=== PATIENT | female | born 1940 | race Caucasian/White ===

== ENCOUNTER → 2018-06-01 13:37 | Outpatient (REF) | payer MEDICARE, SELFPAY ==
[2018-06-01 22:58] LABS: ALT 20 U/L (12-78); AST 19 U/L (15-37); Anion Gap 7.4 mmol/L (3-11); BUN 12 mg/dL (7-18); CO2 27.6 mmol/L (21.0-32.0); CREATININE 0.71 mg/dL (0.55-1.02); Calcium 9.3 mg/dL (8.5-10.1); Chloride 105 mmol/L (98-107); Glucose 85 mg/dL (70-100); Potassium 4.3 mmol/L (3.5-5.1); Sodium 140 mmol/L (136-145); TSH (W/Ref FT4) 1.37 uIU/mL (0.358-3.74); Vitamin B12 262 pg/mL (193-986)
[2018-06-01 23:30] LABS: Cholesterol 269 mg/dL (50-200); HDL Cholesterol 52 mg/dL (40-60); LDL CHOLESTEROL 195 mg/dL (<100); Triglyceride 132 mg/dL (30-150)
== END ==
LOC: NCHCN 13:37
PROVIDERS: PCP Family Medicine; Visit Provider Nurse Practitioner Family
DX: R20.2 Paresthesia of skin (principal); E78.5 Hyperlipidemia, unspecified; R53.83 Other fatigue; K21.9 Gastro-esophageal reflux disease without esophagitis; G47.62 Sleep related leg cramps; M79.1 Myalgia; F43.21 Adjustment disorder with depressed mood; E04.2 Nontoxic multinodular goiter; M62.838 Other muscle spasm
CPT/HCPCS: 80048; 80061; 83721; 82607; 83735; 84443; 84450; 84460

== ENCOUNTER 2018-06-12 01:15 | Outpatient (CLI) | payer MEDICARE, SELFPAY ==
--- NOTE | 2018-06-12 11:02 | DI.US_ITS ---
SYMPTOMS/DIAGNOSIS: MULTINODULAR GOITER, E04.2 THYROID ULTRASOUND: Comparison is made with exams from 2010 and 2016. There has overall been a mild interval increase in size of both lobes of the thyroid when compared with 2010. The overall appearance is unchanged, with numerous isoechoic as well as hypoechoic nodules. A calcification is seen in the mid left lobe. IMPRESSION: Stable appearance of multinodular thyroid.
== END 2018-06-12 01:35 ==
PROVIDERS: PCP Nurse Practitioner Family; Visit Provider Nurse Practitioner Family
DX: E04.2 Nontoxic multinodular goiter (principal)
CPT/HCPCS: 76536

== ENCOUNTER 2018-06-17 02:45 | Outpatient (CLI) | payer MEDICARE, SELFPAY ==
--- NOTE | 2018-06-17 10:58 | DI.MAMMO_ITS ---
SYMPTOMS/DIAGNOSIS: SCREENING, Z12.31 Mammograms were interpreted according to the usual protocol including computer analysis with CAD system, tomosynthesis and C view imaging. Comparison is with the prior examinations. No masses or microcalcifications are seen. There is nothing to suggest malignancy. IMPRESSION: Negative mammogram. Routine screening is recommended. Category 1 , breast density B. MQSA ASSESSMENT OF FINDINGS: Negative. Category 1. Patient will receive a letter notifying them of these results. BI-RADS category B. There are scattered areas of fibroglandular density.
== END 2018-06-17 03:05 ==
PROVIDERS: PCP Nurse Practitioner Family; Visit Provider Nurse Practitioner Family
DX: Z12.31 Encounter for screening mammogram for malignant neoplasm of breast (principal)
CPT/HCPCS: 77063; 77067

== ENCOUNTER 2018-07-22 10:00 | Outpatient (REF) | payer MEDICARE, SELFPAY ==
[2018-07-22 13:34] LABS: ALT 20 U/L (12-78); AST 14 U/L (15-37); CREATININE 0.69 mg/dL (0.55-1.02); Cholesterol 239 mg/dL (50-200); HDL Cholesterol 52 mg/dL (40-60); LDL CHOLESTEROL 166 mg/dL (<100); Potassium 4.2 mmol/L (3.5-5.1); Triglyceride 240 mg/dL (30-150)
== END 2018-07-22 10:20 ==
LOC: NCHCN 10:00
PROVIDERS: PCP Nurse Practitioner Family; Visit Provider Nurse Practitioner Family
DX: E78.5 Hyperlipidemia, unspecified (principal); R76.0 Raised antibody titer; R20.2 Paresthesia of skin; R53.83 Other fatigue; G47.62 Sleep related leg cramps
CPT/HCPCS: 80061; 83721; 82565; 84132; 84450; 84460

== ENCOUNTER 2019-03-30 13:00 | Outpatient (REF) | payer MEDICARE, SELFPAY ==
[2019-03-30 21:19] LABS: Calculated LDL 225; Cholesterol 321 mg/dL (50-200); HDL Cholesterol 44 mg/dL (40-60); Triglyceride 261 mg/dL (30-150)
== END 2019-03-30 13:20 ==
LOC: NCHCN 13:00
PROVIDERS: PCP Nurse Practitioner Family; Visit Provider Nurse Practitioner Family
DX: E78.5 Hyperlipidemia, unspecified (principal); R53.83 Other fatigue; F41.8 Other specified anxiety disorders; E55.9 Vitamin D deficiency, unspecified; E04.2 Nontoxic multinodular goiter; K21.9 Gastro-esophageal reflux disease without esophagitis
CPT/HCPCS: 80061; 83721

== ENCOUNTER 2019-05-04 10:55 | Outpatient (REF) | payer MEDICARE, SELFPAY ==
[2019-05-04 23:10] LABS: BUN 8 mg/dL (7-18); CREATININE 0.64 mg/dL (0.55-1.02); Calcium 9.2 mg/dL (8.5-10.1); Glucose 92 mg/dL (70-100)
[2019-05-04 23:11] LABS: ALT 23 U/L (12-78); AST 18 U/L (15-37); Albumin 3.6 g/dL (3.4-5.0); Alkaline Phosphatase 89 U/L (46-116); Anion Gap 8.1 mmol/L (3-11); Bilirubin, Total 0.3 mg/dL (0.2-1.0); CO2 25.9 mmol/L (21.0-32.0); Chloride 107 mmol/L (98-107); Magnesium 1.9 mg/dL (1.8-2.4); Potassium 4.3 mmol/L (3.5-5.1); Sodium 141 mmol/L (136-145); TSH (W/Ref FT4) 2.83 uIU/mL (0.36-3.74); Total Protein 6.6 g/dL (6.4-8.2); Vitamin B12 186 pg/mL (193-986)
== END 2019-05-04 11:15 ==
LOC: NCHCN 10:55
PROVIDERS: PCP Nurse Practitioner Family; Visit Provider Nurse Practitioner Family
DX: E78.5 Hyperlipidemia, unspecified (principal); R53.83 Other fatigue; E04.2 Nontoxic multinodular goiter; F41.8 Other specified anxiety disorders; R07.89 Other chest pain; K21.9 Gastro-esophageal reflux disease without esophagitis; M25.561 Pain in right knee; M25.562 Pain in left knee; M62.838 Other muscle spasm
CPT/HCPCS: 80053; 82607; 83735; 84443

== ENCOUNTER 2019-06-02 01:14 | Outpatient (CLI) | payer MEDICARE, SELFPAY ==
--- NOTE | 2019-06-02 13:28 | DI.RAD_ITS ---
SYMPTOMS/DIAGNOSIS: RT HIP PAIN, M25.551, LUMBAR BACK PAIN, M54.5 RIGHT HIP AND PELVIS: Three views. No acute fracture or dislocation is seen. There is mild joint space narrowing and subchondral sclerosis seen in the right hip. There are degenerative changes present in the lower lumbar spine. There also appears to be a left convex scoliotic curvature of the lumbar spine. Degenerative changes are seen at the sacroiliac joints. The symphysis pubis is intact. No suspicious lytic or sclerotic lesions are seen. IMPRESSION: 1. Mild degenerative changes in the right hip. 2. Degenerative changes seen in the lower lumbar spine. LUMBAR SPINE: AP, lateral and bilateral oblique views. There are five lumbar type vertebral bodies. There is a mild left convex scoliotic curvature of the spine. No spondylolysis or spondylolisthesis is seen. There is mild disc space narrowing at L 3 - 4 and L 5 - S 1. There is a vacuum disc at L 5 - S 1. There are osteophytes at all levels of the lumbar spine. Degenerative changes are seen at the facet joints, particularly from L 3 - 4 through L 5 - S 1. No acute fracture or subluxation is seen. The bones are osteopenic. IMPRESSION: Moderate degenerative changes seen in the lumbar spine.
== END 2019-06-02 01:34 ==
PROVIDERS: PCP Nurse Practitioner Family; Visit Provider Specialist/Technologist Athletic Trainer
DX: M25.551 Pain in right hip (principal); M54.5 Low back pain; M16.11 Unilateral primary osteoarthritis, right hip; M51.37 Other intervertebral disc degeneration, lumbosacral region; M48.17 Ankylosing hyperostosis [Forestier], lumbosacral region
CPT/HCPCS: 72110; 73502

== ENCOUNTER → 2019-07-05 14:32 | Outpatient (BNVA) | payer MEDICARE, SELFPAY | PROVIDERS: PCP Nurse Practitioner Family; Referring Provider Nurse Practitioner Family; Visit Provider Student in an Organized Health Care Education/Training Program | DX: M16.11 Unilateral primary osteoarthritis, right hip (principal) | CPT/HCPCS: 99214 ==

== ENCOUNTER 2019-07-08 03:25 | Outpatient (CLI) | payer MEDICARE, SELFPAY ==
[2019-07-08] MEDS: methylPREDNISolone ACETATE 80 MG/ML VIAL IM (15:47)
[2019-07-08] MEDS: Omnipaque 300 MG/ML 10 ML BTL IJ (15:47)
[2019-07-08] MEDS: Bupivacaine 0.5% Pres-Free 10 ML VIAL 8 ML IJ (15:48)
--- NOTE | 2019-07-08 16:00 | DI.RAD_ITS ---
EXAM: RF JOINT INJECTION FLUORO GUID CLINICAL HISTORY: HIP PAIN,OA RT HIP,M16.11. TECHNIQUE: 2D and realtime digital imaging was performed. CONTRAST MATERIAL: Oral barium Oral water soluble contrast was administered. COMPARISON: No exams were available for comparison FINDINGS: Fluoroscopy was utilized by Dr. Laina dutton during right hip injection. Hard copy shows intra-carmina cular right hip injection. IMPRESSION:
--- NOTE | 2019-07-08 21:09 | W.PROCNOTE ---
Date of service: 07/08/19 Time of Service: 18:10 Procedure Note Date of procedure: 07/08/19 Procedure: Right Hip Injection with Fluoroscopic Guidance Surgeon/Proceduralist/Physician: Mikey Fontenot Procedure Diagnosis: Right Hip Osteoarthritis Procedure Indications: Ginger has had persistent pain of the RIGHT hip and groin. Noninvasive measures have been tried. To serve as both diagnostic and therapeutic, an injection under fluoroscopy was recommended. I had discussed the risks of the procedure and the patient elected to proceed. Procedure Description: Ginger was greeted in the flouroscopy room. The correct side was identified and the consent was reviewed with the patient and signed. The patient was then placed in the supine position on the fluoroscopy table. The RIGHT hip was then prepped with Chloraprep. The anterolateral injection starting point was identiifed by bony landmarks and fluoroscopy. The skin and soft tissue in the tract of the injection was anesthetized with 1% Lidocaine. A spinal needle was then inserted deep into the hip joint at the level of the lateral femoral neck under fluoroscopic guidance. A small amount of Omnipaque solution was injected to confirm intraarticular placement. Once confirmed, the hip was injected with 6cc of 0.5% Bupivicaine and 80mg of Depo-Medrol. A bandaid was placed on the injection site. The patient tolerated the procedure well and noted improvement in pre-injection pain.
== END 2019-07-08 03:45 ==
PROVIDERS: PCP Nurse Practitioner Family; Visit Provider Student in an Organized Health Care Education/Training Program
DX: M25.551 Pain in right hip (principal); M16.11 Unilateral primary osteoarthritis, right hip
CPT/HCPCS: 20610; 77002; J1040

== ENCOUNTER → 2019-07-29 13:14 | Outpatient (BNVA) | payer MEDICARE, SELFPAY | PROVIDERS: PCP Nurse Practitioner Family; Referring Provider Nurse Practitioner Family; Visit Provider Student in an Organized Health Care Education/Training Program | DX: M16.11 Unilateral primary osteoarthritis, right hip (principal); M54.5 Low back pain; Z98.890 Other specified postprocedural states | CPT/HCPCS: 99213 ==

== ENCOUNTER → 2019-10-28 11:50 | Outpatient (BNVA) | payer MEDICARE, SELFPAY | PROVIDERS: PCP Nurse Practitioner Family; Referring Provider Nurse Practitioner Family; Visit Provider Student in an Organized Health Care Education/Training Program | DX: M17.12 Unilateral primary osteoarthritis, left knee (principal); M17.11 Unilateral primary osteoarthritis, right knee | CPT/HCPCS: 20610; 99213; J1040 ==

== ENCOUNTER 2019-12-09 11:10 | Outpatient (CLI) | payer MEDICARE, SELFPAY ==
--- NOTE | 2019-12-09 11:00 | DI.RAD_ITS ---
EXAM: XR STANDING ALIGNMENT CLINICAL HISTORY: preoperative planning. TECHNIQUE: 2D digital imaging was performed. COMPARISON: No exams were available for comparison FINDINGS: BONES: No acute fracture is present. No bony destructive lesion is seen. There are moderately severe degenerative changes seen in the lower lumbar spine. The right lower extremity measures 88.4 cm. Th e left lower extremity measures 88.2 cm. JOINTS: Moderately severe degenerative changes are seen in the knees bilaterally. There is joint spa ce narrowing and periarticular spurring in both knees. SOFT TISSUE: Normal. IMPRESSION: Osteoarthritis of the knees bilaterally. DATA REPOSITORY: RADIATION DOSE DELIVERED:
--- NOTE | 2019-12-09 11:00 | DI.RAD_ITS ---
EXAM: XR SHOULDER LT COMPLETE 2+V CLINICAL HISTORY: left shoulder pain. TECHNIQUE: 2D digital imaging was performed. COMPARISON: No exams were available for comparison FINDINGS: BONES: No acute fracture is present. No bony destructive lesion is seen. JOINTS: No dislocation present. There is hypertrophic spurring seen at the glenohumeral joint particu larly involving the humeral head. There are mild hypertrophic changes seen at the acromioclavicular joint. There is joint space narrowing present at the glenohumeral joint. SOFT TISSUE: Normal. IMPRESSION: Osteoarthritis of the left shoulder. DATA REPOSITORY: RADIATION DOSE DELIVERED:
== END 2019-12-09 11:30 ==
PROVIDERS: PCP Nurse Practitioner Family; Referring Provider Nurse Practitioner Family; Visit Provider Student in an Organized Health Care Education/Training Program
DX: M25.512 Pain in left shoulder (principal); M19.012 Primary osteoarthritis, left shoulder; M17.0 Bilateral primary osteoarthritis of knee; M17.12 Unilateral primary osteoarthritis, left knee; M17.11 Unilateral primary osteoarthritis, right knee
CPT/HCPCS: 99213; 73030; 77073

== ENCOUNTER 2020-02-25 03:22 | Outpatient (CLI) | payer MEDICARE, SELFPAY ==
[2020-02-25 11:32] LABS: HCT 39.8 % (36.0-46.0); HGB 13.1 g/dL (12.0-15.5); Mean Corp. HGB Concentration 32.9 g/dL (32.0-36.0); Mean Corpuscular Volume 91.1 fL (80-95); Mean Platelet Volume 8.5 fL (8.0-11.0); Platelet Count 250 x1000/uL (130-400); RBC 4.37 m/cumm (4.00-5.20); RBC Distribution Width 12.8 % (11.7-14.6); White Blood Cell Count 4.32 k/cumm (4.4-10.8)
[2020-02-25 13:08] LABS: Anion Gap 9.8 mmol/L (3-11); BUN 14 mg/dL (7-18); CO2 25.2 mmol/L (21.0-32.0); Calcium 9.3 mg/dL (8.5-10.1); Chloride 104 mmol/L (98-107); Glucose 92 mg/dL (74-106); Sodium 139 mmol/L (136-145)
== END 2020-02-25 03:42 ==
PROVIDERS: PCP Nurse Practitioner Family; Visit Provider Student in an Organized Health Care Education/Training Program
DX: M25.561 Pain in right knee (principal); M17.11 Unilateral primary osteoarthritis, right knee; Z01.818 Encounter for other preprocedural examination; Z01.812 Encounter for preprocedural laboratory examination; M17.12 Unilateral primary osteoarthritis, left knee
CPT/HCPCS: 36415; 80048; 85027

== ENCOUNTER 2020-02-28 09:12 | Outpatient (CLI) | payer MEDICARE, SELFPAY ==
[2020-02-29 03:30] LABS: COVID-19 RT-PCR UVMMC Result Negative (Negative)
== END 2020-02-28 09:32 ==
PROVIDERS: PCP Nurse Practitioner Family; Visit Provider Student in an Organized Health Care Education/Training Program
DX: Z11.59 Encounter for screening for other viral diseases (principal)
CPT/HCPCS: U0003

== ENCOUNTER → 2020-03-01 08:18 | Outpatient (BNVA) | payer MEDICARE, SELFPAY | PROVIDERS: PCP Nurse Practitioner Family; Referring Provider Nurse Practitioner Family; Visit Provider Student in an Organized Health Care Education/Training Program | DX: R69 Illness, unspecified (principal) ==

== ENCOUNTER 2020-03-01 09:23 | Observation (INO) | payer MEDICARE, SELFPAY ==
[2020-03-01] VITALS (7 sets, daily range): BP systolic 96–137; BP diastolic 59–80; PULSE 51–82; RESP 16–24; TEMP 35.8–36.1; O2SAT 94–98
[2020-03-01] MEDS: Acetaminophen 500 MG TAB 1000 MG PO ×2 (10:03→15:44)
[2020-03-01] MEDS: Gabapentin 300 MG CAP PO (10:04)
[2020-03-01] MEDS: Celecoxib 200 MG CAP 400 MG PO (10:04)
[2020-03-01] MEDS: Lactated Ringers 1,000 ML 80 ML IV (10:40)
[2020-03-01] MEDS: Bupivacaine 0.25% Pres-Free 30 ML VIAL ×2 (11:10→12:23)
[2020-03-01] MEDS: ceFAZolin 2 GM/50 ML BAG IVPB (11:32)
[2020-03-01] MEDS: Ketorolac 30 MG/ML VIAL (12:23)
[2020-03-01] MEDS: Normal Saline 20 ML VIAL (12:24)
--- NOTE | 2020-03-01 14:39 | IN_ITS ---
Date of service: 03/01/20 Time of Service: 14:39 PT Notes Visit Reasons: (L) KNEE DJD Physical Therapy Inpatient Initial Evaluation Date: 03/01/2020 Referring Doctor: Mikey Fontenot MD PT Orders: PT CONSULT: Status post Ortho surgery. Status post left TKA. Precautions: Fall. Standard. WBAT on L LE. Patient Profile/Admitting Diagnosis: Ginger is a 79-year-old female with primary unilateral osteoarthritis of the left knee and is status post total knee arthroplasty on postoperative day 0. PMHX: Medical History Anxiety (Chronic) Arthritis of left glenohumeral joint (Acute) Back pain Secondary to spinal stenosis and arthritis. [place]-Walker grade 3 cystocele Onset 05/2017. Extends beyond the introitus with Valsalva. 07/04/2017. short stemmed Gellhorn 2 3/4 (70mm) pessary. 07/10/2017 #4 donut pessary Chest discomfort (Acute) Cystocele with rectocele (Acute) Depression Onset after daughter's at age 50. Duodenal ulcer (Acute) Elevated antinuclear antibody (SERGEY) level (Acute) Esophageal spasm Rx with amlodipine. Fatigue (Acute) GERD (gastroesophageal reflux disease) (Chronic) Grief at loss of child (Acute) Hip pain, right (Acute) Hyperlipidemia (Acute) Knee pain, bilateral (Acute) Lactose intolerance (Acute) Leg cramps (Acute) Macular degeneration (Acute) Multinodular goiter (Acute) Myalgia (Acute) Neck muscle spasm (Acute) Primary osteoarthritis of left knee (Chronic) Most recent injection: 10/28/2019 Primary osteoarthritis of right knee (Chronic) Most recent injection: 10/28/2019 Vitamin B12 deficiency (Acute) Vitamin D deficiency (Acute) Surgical History Colonoscopy - IV Sedation EGD - IV Sedation Extraction of cataract Ganglion Cyst, left wrist Left Breast Cyst Removal Social History/Home Situation: Patient lives with in a private home with 2 steps to enter. She is independent with all aspects of ADLs without the need for an assistive ambulatory device nor the use of an adaptive equipment prior to surgery. Daughter who lives in [place] will be helping the patient and her during her recovery as needed. Equipment Owned/DME: None. Subjective: Patient reports an ache on the knee area at rest which seat she said increased with ambulation activity. She denies lightheadedness, chest pain, headache, and dizziness throughout PT session. Objective: General Observation: Patient seen resting in bed. IV in the L UE. TEDS on R leg. Mental Status: Alert and oriented x4 Pain: 1/10 on the knee area ROM: Right Upper Extremity: Shoulder Flexion WFL. Shoulder abduction WFL. Elbow flexion WFL. Wrist flexion WFL. Opening and closing of hand WFL. Left Upper Extremity: Shoulder Flexion WFL. Shoulder abduction WFL. Elbow flexion WFL. Wrist flexion WFL. Opening and closing of hand WFL. Right Lower Extremity: Hip flexion WFL. Hip abduction WFL. Knee flexion WFL. Ankle dorsiflexion WFL. Ankle plantarflexion WFL. Left Lower Extremity: Hip flexion WFL. Hip abduction WFL. Knee flexion -5 degrees to 110 degrees. Knee extension -5 degrees. Ankle dorsiflexion WFL. Ankle plantarflexion WFL. Strength: Right Upper Extremity: Shoulder flexors 5/5. Shoulder abductors 5/5. Elbow flexors 5/5. Elbow extensors 5/5. Universal Winding Machine Operator strong. Left Upper Extremity: Shoulder flexors 5/5. Shoulder abductors 5/5. Elbow flexors 5/5. Elbow extensors 5/5. Universal Winding Machine Operator strong. Right Lower Extremity: Hip flexors 5/5. Hip abductors 5/5. Knee flexors 5/5. Knee extensors 5/5. Ankle dorsiflexors 5/5. Ankle plantarflexors 5/5. Left Lower Extremity:Hip flexors 5/5. Hip abductors 5/5. Knee flexors 3-5. Knee extensors 3-/5. Ankle dorsiflexors 5/5. Ankle plantarflexors 5/5. Sensation: Intact as to pain and pressure on bilateral lower extremities. Re sidual numbness on bilateral gluteal areas. Bed Mobility/Transfers: Rolling modified independent Supine to sit modified independent with HOB flat using both hands for support Sit to supine modified independent with HOB flat using both hands for support Sit to stand contact-guard assist requiring front wheeled walker with minimal verbal cueing for hand placement Stand to sit contact-guard assist with minimal verbal cueing for hand placement Bed to chair contact-guard assist requiring front wheeled walker with minimal verbal cueing for hand placement Chair to bed contact-guard assist requiring front wheeled walker with minimal verbal cueing for hand placement Gait: Patient tolerated level surface ambulation of 150 feet x 2 using front wheeled walker with contact-guard assist and IV pole management of PT. Step to gait pattern. Patient reports increased achiness on the left knee. No LOB. Balance: Static Sitting: Normal Dynamic Sitting: Normal Static Standing: Fair Dynamic Standing: Fair Special Tests: Mobility Limitations Standardized Measure [facility] AM-PAC 6 clicks Basic Mobility Inpatient Short Form: Raw Score: 23 CMS Score: 11% deficit Informed Consent/Education: Patient instructed in purpose of PT consult and plan of care. Assessment: Patient demonstrates need for an assistive ambulatory device for all mobility ADL performance, at risk for falls, unsteadiness on feet, impaired gait pattern and weakness of left knee major muscle group resulting from postoperative status. Ginger is a 79-year-old female with primary unilateral osteoarthritis of the left knee and is status post total knee arthroplasty on postoperative day 0. Patient presents with clinical signs and symptoms consistent with current/admitting diagnoses that have resulted to mobility limitations, gait instability, and generalized weakness as demonstrated by the following impairment level findings: 1. Decreased strength to L knee major muscle groups 2. Impaired standing balance 3. Impaired activity tolerance 4. Limitation of joint range of motion in L knee Impairments are contributing to the following functional limitations: 1. Inability to safely ambulate without assistive device and physical assistance 2. Increase completion time for mobility ADL performance 3. Increased fall risk 4. Inability to negotiate steps alone safely Patient is assessed as a [id number] moderate complexity based on the following: History: 79-year-old female with impairment level findings, functional limitations, and past medical history as listed above Examination: Demonstrable impairment in strength, balance, and range of motion with underlying impairments and functional limitations as documented above Presentation: Stable Decision Makin moderate complexity Goals: N/A. PT consult only. Plan of Care/Treatment Plan: N/A. PT consult only. DISCHARGE RECOMMENDATIONS: Home when cleared by orthopedic surgeon. Patient will benefit from the use of a front wheeled walker to maximize independence at home. May benefit from skilled physical therapy services according to orthopedic surgeon's timeline recommendations. Patient will be educated and tr ained on home exercise program per TKA exercise protocol in preparation for outpatient physical therapy services. TREATMENT CODE/TIME: 83269 x 33 minutes beginning at 14:39 PM. Thank you very much for this referral. Faith Gonzalez PT, DPT, CLT [facility] [place], [place]
--- NOTE | 2020-03-01 15:15 | W.PM.DS.N ---
Date of service: 03/01/20 Time of Service: 15:17 DS: Diagnosis Discharge Diagnosis (1) Primary osteoarthritis of left knee: Status: Chronic Discharge Plan Disposition Patient Disposition: HOME Condition: Good Discharge Details Reason For Visit: (R) KNEE DJD Admit Date/Time: 03/01/20 09:23 Admit Provider: Mikey Fontenot Attending Provider: Mikey Fontenot Primary Care Provider: Lydia Estrella [place] Hospital Course Hospital Course: Patient was admitted to the medical/surgical floor following the procedure. The surgery was tolerated well without any notable medical, surgical, or anesthetic complications. Mobilization began postoperatively. Vitals were stable. Physical therapy worked with the patient and was cleared for discharge home. No acute medical issues. Pain was controlled on oral regimen. Home Meds and New Rx's Prescriptions: New celecoxib 200 mg capsule 200 mg PO BID PRN (Reason: pain) Qty: 60 RF: 1 acetaminophen 500 mg tablet 1,000 mg PO Q8H PRN (Reason: pain) Qty: 90 RF: 3 oxycodone 5 mg tablet 5 mg PO Q4H Qty: 12 RF: 0 Continued pantoprazole 20 mg Tablet,Delayed Release (Dr/Ec) 20 mg PO DAILY RF: 0 fluoxetine [Prozac] 10 mg Capsule 10 mg PO HS RF: 0 ICaps AREDS2 250 mg-200 unit -12.5 mg-1 mg Capsule 1 cap PO HS RF: 0 cholecalciferol (vitamin D3) 1,000 UNIT capsule 3,000 unit PO HS Qty: 180 RF: 0 amlodipine 2.5 MG tablet 1 tab PO HS RF: 0 Changed aspirin [Aspir-81] 81 MG tablet,delayed release (DR/EC) 81 mg PO BID Qty: 60 RF: 0 Discontinued acetaminophen 500 mg tablet 650 mg PO BID PRNRF: 0 ibuprofen 200 mg Tablet 200 mg PO Q6H PRNRF: 0 Discharge Instructions Additional Instructions: Dr. Fontenot?s Total Knee Discharge Instructions Activity: The most important activity is to walk. You should try to take short walks a few times a day. It is important that when resting you work on keeping the knee straight. Avoid putting a pillow behind the knee as this will encourage flexion. Work on range of motion exercises as provided by Physical Therapy and the preoperative booklet. - Start outpatient physical therapy within 2 weeks. - You should wear the MARCO hose on both legs for 2 weeks. Dressing: Keep the surgical dressing (Mepilex) in place for at least one week. If you went home on the surgical day, you should remove the NAM wrap on the second day and then apply the MARCO hose. The dressing may get wet after 3 days but avoid soaking the dressing. If it gets wet, just lightly pat dry. Most patient prefer to cover with ClingWrap or Saran Wrap to keep the dressing dry. After the first week, the dressing may be removed and replaced with light gauze and tape or nothing. Medications: - You should take Tylenol and anti-inflammatory Celebrex as your primary pain control medications - You have been prescribed a stronger pain medication Oxycodone for breakthrough pain, take as needed as prescribed. - You will continue your stomach acid reduction agent Pantoprozole to help reduce stomach acid and reflux. - You will be taking Aspirin 81mg twice a day for DVT prevention for 30 days unless instructed otherwise. - If you have constipation you should take Colace or Miralax (both [id number]-mib-nymvpsy). It takes most people 3-4 days to have a bowel movement. Follow-up: 2 weeks. You should also call physical therapy to work on scheduling outpatient therapy sessions which can begin at 2 weeks. If you have any acute concerns or questions, please do not hesitate to contact the office at [phone]. You may contact Dr. Fontenot with any questions after hours through the hospital at [phone] or on his cell phone at [phone]. Referrals: Mikey Fontenot MD [ [facility] STAFF PHYSICIAN] - Activity:: Activity as Tolerated Equipment/Supplies:: Walker Diet:: As Tolerated Discharge Orders Discharge Orders: Discharge Order (Routine); Ordered 03/01/20 Ordered By: Mikey Fontenot DS: Summary Status at Discharge Functional status at discharge: uses cane/walker Overall status at discharge: patient is progressing back to baseline Mental Status: mental status grossly normal Speech and Movement: speech and movement normal Mood: congruent mood Affect: normal affect Exam Psych Mental Status: mental status grossly normal Speech and Movement: speech and movement normal Mood: congruent mood Affect: normal affect DS: Data Vitals/I&O Vitals and I&O: Vital Signs Temperature 36.1 C L 03/01/20 14:07 Pulse 64 03/01/20 14:07 Pulse Rhythm Regular 03/01/20 09:48 Respiratory Rate 24 03/01/20 14:07 Respiratory Effort 03/01/20 09:48 Blood Pressure 103/66 03/01/20 14:07 Pulse Oximetry 95 03/01/20 14:07 Oxygen Delivery Method Room Air 03/01/20 14:07 Oxygen Flow Rate 0 03/01/20 09:48 Pain Level 0 03/01/20 14:07 Intake & Output 02/29/20 03/01/20 03/01/20 23:59 11:59 23:59 Intake Total 60 / 1070 1010 / 1070 Output Total 100 / 100 Balance 60 / 970 910 / 970 Weight 79.3 kg Intake: IV 60 / 1070 1010 / 1070 Output: Estimated Blood Loss 100 / 100 Other: Emesis Description None [facility] Medical History Anxiety (Chronic) Arthritis of left glenohumeral joint (Acute) Back pain Secondary to spinal stenosis and arthritis. [place]-Walker grade 3 cystocele Onset 05/2017. Extends beyond the introitus with Valsalva. 07/04/2017. short stemmed [place]horn 2 3/4 (70mm) pessary. 07/10/2017 #4 donut pessary Chest discomfort (Acute) Cystocele with rectocele (Acute) Depression Onset after daughter's at age 50. Duodenal ulcer (Acute) Elevated antinuclear antibody (SERGEY) level (Acute) Esophageal spasm Rx with amlodipine. Fatigue (Acute) GERD (gastroesophageal reflux disease) (Chronic) Grief at loss of child (Acute) Hip pain, right (Acute) Hyperlipidemia (Acute) Knee pain, bilateral (Acute) Lactose intolerance (Acute) Leg cramps (Acute) Macular degeneration (Acute) Multinodular goiter (Acute) Myalgia (Acute) Neck muscle spasm (Acute) Primary osteoarthritis of left knee (Chronic) Most recent injection: 10/28/2019 Primary osteoarthritis of right knee (Chronic) Most recent injection: 10/28/2019 Vitamin B12 deficiency (Acute) Vitamin D deficiency (Acute) Surgical History Colonoscopy - IV Sedation EGD - IV Sedation Extraction of cataract Ganglion Cyst, left wrist Left Breast Cyst Removal Family History Daughter Mental disorder Depression suicide age 50. Other Uterine cancer Social History Smoking/Tobacco Use Status: Former Tobacco Use Alcohol Intake: never Drug use: Never Substance use type: does not use Household members: spouse Housing: house Number of Children: 4 current occupation: retired Current gender identity: female What is your relationship status?: Panel score (0-1 are the most socially isolated patients): 1 What type of physical activity do you participate in: aerobic, regular exercise, weight lifting and additional Details: PT Duration: 30-45 minutes/day Frequency: 3-4 times per week
--- NOTE | 2020-03-01 15:18 | PDOC.CMPRO ---
- If Service Date Differs Date of service: 03/01/20 Time of Service: 15:18 Care Management Progress Note S/O: Ginger was sitting up in bed when CM met with her. She was pleasant and agreeable to conversation. Ginger had total knee replacement surgery this morning with Dr. Fontenot. She lives with her in [place] in a single family home. She has to go up 2 stairs to gain entry into her house. Ginger is independent with ADLs. She will need a FWW at discharge. P: Ginger will be discharged home with no new services later this afternoon. She was provided with a FWW by [facility] and will meet with PT for assembly of same.
--- NOTE | 2020-03-02 06:59 | W.PM.OP ---
Date of service: 03/01/20 Time of Service: 13:28 Operative Note Operative Note DATE OF PROCEDURE: 03/01/20 PRE-OP DIAGNOSIS: Left knee Osteoarthritis POST-OP DIAGNOSIS: same PROCEDURE: Left total Knee Replacement SURGEON: Mikey Fontenot SUPERVISOR HAND WORKERS: Savana Buckley ANESTHESIA: regional and spinal ESTIMATED BLOOD LOSS: 150 PATHOLOGY: none sent TOURNIQUET TIME: 28 COMPLICATIONS: None Patient was transported to: PACU Patient's condition: stable Implants: 1. Depuy Attune Cruciate Retaining Femoral Component, Size 6 2. Depuy Attune Rotating Platform Tibial Component, Size 5 3. Depuy Attune 6 x 7 CR,RP Poly 4. Depuy Attune Patellar Component, Size 35 Indications: I have seen Ginger in clinic for symptoms of knee arthritis, confirmed with radiographic findings. She has exhausted nonoperative methods and was having significant limitations in daily function and desired better function and less pain. I discussed the technical details of a knee replacement. I explained the risks of the procedure to include, but not limited to, bleeding, infection, pain, stiffness, fracture, damage to nerves and vessels, damage to muscles and tendons, loosening, need for repeat procedure, blood clot and cardiopulmonary demise. Despite these risks, Ginger elected to proceed. Findings: There was significant signs of arthritis throughout the knee. All compartments were involved but most was the medial tibia. There were multiple loose bodies, especially one large 1, approximate 1.5 cm in diameter, located behind the medial femur. Procedure Description: Ginger was greeted in the preoperative holding area where the correct side was identified and marked. The consent was reviewed with the patient and signed. The history and physical was updated. All questions were answered. Preoperative medications were administered: Acetaminophen 1000mg, Celebrex 400mg, and Gabapentin 300mg. An adductor canal block was then administered by the anesthesia team in the PACU. Ginger was taken back to the operating room. A spinal anesthestic was then administered. The patient was placed into the supine position on the operating room table. A nonsterile tourniquet was placed high onto the leg but only used for cementing. Posts were placed for positioning during the procedure. All bony prominences were well padded. Prophylactic antibiotics in the form of cefazolin were administered. 1g of Tranxemic Acid was given intravenously within 30 minutes of incision. The left leg was then prepped with Chloraprep and draped in a standard fashion with impervious stockinette and extremity drape. A second prep with Chloraprep was performed prior to placing Ioband. A timeout to confirm correct identity, side and site, procedure, allergies, anesthesia, and medical concerns was performed. With the knee in some flexion, a midline incision was made overlying the knee. Full thickness skin flaps were raised once the extensor mechanism was encountered. These were raised medially and laterally. Any bleeding was controlled with electrocautery. Once the extensor mechanism was fully exposed, a medial parapatellar arthrotomy was performed in a flexed position. All bleeding from the arthrotomy and the geniculate arteries was coagulated. A medial subperiosteal peel was performed with electrocautery to the midcoronal plane. The fat pad was removed while keeping the patellar tendon protected. The anterior distal femur synovium was removed for later visualization. The ACL and PCL were resected and the anterior horn of the lateral meniscus was transected. The knee was then flexed with the patella everted. Large osteophytes from the tibia were removed. Large osteophytes from the femur were removed. With flexing the knee, multiple loose bodies were discovered, all posteriorly. One was quite large, approximately 1.5 cm in diameter with notable irregularity. These loose bodies were removed. Using a step drill, and based on preoperative templating, the femoral canal was entered. This was done with a step drill without any difficulty. The intramedullary distal femoral cut guide was inserted, set to a 5 degree valgus cut and 10mm cut thickness due to preoperative 10 to 15 degree flexion contracture. The distal femoral cut guide was then held in position and pinned. With the soft tissues protected, the distal cut was performed. This was passed over a few times to ensure a planar cut. I then turned attention to the tibia. The extramedullary guide was placed onto the leg. The distal aspect was slid medial to adjust for position of center of ankle and stay in line with shaft of the tibia. Approximately 3-5 degrees of posterior slope was kept in the proximal cutting guide. The center of the guide was aligned with the PCL. The stylus was used to assess cut thickness. The medial side, most involved side, was set for a 4mm cut corresponded to 8 mm cut laterally. This was then held in position and pinned into place with 2 additional pins and a cross pin for stability. The medial and lateral collateral ligaments were protected and the cut was performed. With this completed, it was assessed and noted to be of appropriate dimensions. The guide was removed. A spacer block was inserted and the knee was brought into extension. The 6mm spacer block provided full extension, without hyperextension and with stability of both the medial and lateral collateral ligaments was assessed. The pins from the femur and the tibia were then removed. The distal femur was then sized. The anterior stylus was placed onto the lateral ridge of the anterior femur. This indicated a size 6 femur. The external rotation of the guide was adjusted to 3 degrees to match the epicondylar axis, perpendicular to [place]?s line. The 4-in-1 cutting guide was the placed. The posterior medial femur cut was evaluated and appeared of good thickness. The spacer block was inserted underneath the cutting guide and stability was confirmed in 90 degrees of flexion. An jamel wing was used to confirm appropriate position of the anterior cut to avoid notching. This cutting guide was ensured to be flush on the cut surface and then pinned into place with headed pins. While protecting the soft tissues, quad tendon, and collateral ligaments, the anterior and posterior cuts were performed with a saw. The central two pins were removed and the posterior and anterior chamfers were cut next. The notch-cutting guide was placed. This was pinned to lateralize the femoral component as much as possible while keeping it flush on the cut surface. This was then pinned into position. A reciprocating saw was used to make the small notch cut. Posterior osteophytes were then removed with an osteotome and rongeur. A trial CR femoral component was then inserted, impacted down to the cut surfaces, and the lug holes were drilled. A provisional trial tibial component was placed and the knee was brought through range of motion. The polyethylene was trialed until there was good flexion and extension with excellent stability to the medial and lateral collaterals. The patella was tracking without thumbs. The tibial cut surface was fully exposed. The medial and lateral menisci were removed. The tibia was then sized as a 5. The tibia had been previously marked during trialing to correspond to the center of the tibial component to help with rotation. The trial was aligned to this rosibel, approximately rotated to the medial 1/3rd of the tibial tubercle. The trial was pinned into place. The tibia was prepared with a reamer and a keel punch. The knee was then brought into extension and the patella was measured as 25 mm. Using the patellar clamp and cut guide, this was resected to a flat surface with at least 13mm of thickness remaining. The size 35 patella fit the best. This was oriented and then clamped into position. The lugs were drilled. The trial components were removed. The final components, except for the polyethylene were opened on the back table. The periosteal and capsular tissues, especially posteriorly, around the knee were then systematically injected with a periarticular cocktail consisting of 50cc 0.25% Marcaine, 30mg Ketorolac, 20cc of Exparal and 50cc of injectable saline. The tourniquet was then inflated to 275mmHg. The knee was thoroughly irrigated with a pulse lavage and dried. On the back table, with the implants opened, the cement was mixed. 2 batches of antibiotic laden cement were prepared with vacuum assistance. After the cement was ready it was placed on to the back side of the tibial component. A small amount was placed onto the posterior flange of the femur. Cement was manual pressurized and impregnated into the cut surface of the tibia. The tibial component was then inserted into the cut surface and impacted into position. Excess cement was removed and the component was reimpacted. Again, excess cement was removed and our attention was then turned to the femur. The femoral cut surface was once again dried and cement was manually impacted into the cut surface. The femoral component was lined with the lug holes and impacted. Excess cement was removed. It was ensured to be down against the cut surface. The trial polyethylene was then inserted and the leg was brought out into full extension for the duration of the cement curing process, approximately 15min. Cement was lastly manually impacted into the cut surface of the patella and the patellar button was clamped into position and held. During this process attention was turned to the gutters of the knee and for all interfaces for any excess cement. While the cement was hardening, the knee was irrigated with Irrisept chlorhexadine solution. It was allowed to sit in the knee for 3 minutes. After the cement had finally cured, approximately 15min, the clamp was removed from the patella and the knee was taken through range of motion. A size 7 mm polyethylene component provided the best range of motion and stability with less than 2mm gapping with medial and lateral stress and full extension without significant hyperextension. The patella was tracking with a no-thumbs technique. The trial poly was removed and once again the knee was checked for any loose, excess, or errant cement. The poly component was then inserted into position after cleaning and drying the tibial tray. The capsule was then reapproximated with a No. 1 Vicryl at multiple locations. The capsule was finally closed with a No. 2 Stratafix, barbed suture. The tourniquet was then released and the arthrotomy appeared watertight without significant bleeding. The second dosing of 1g TXA was started. Deep tissues were then reapproximated with 0 Vicryl and 2-0 Vicryl. The skin was closed with a running 3-0 Monocryl in a subcuticular fashion. This was reinforced with skin glue. A Mepilex silver dressing was applied along with a [id number] NAM wrap. A CryoCuff was applied. Ginger was transferred to the hospital bed without difficulty an suffering no apparent complication. [place] has a good prognosis. Physical therapy will start today and without restrictions, weight-bearing as tolerated. Aspirin 81mg BID will be used for DVT prophylaxis.
== END 2020-03-01 17:08 | disposition home or self-care (01) ==
LOC: PDS 14:01 → MS 14:02
PROVIDERS: Admitting Provider Student in an Organized Health Care Education/Training Program; PCP Nurse Practitioner Family; Visit Provider Student in an Organized Health Care Education/Training Program
PROC: 0SRD0J9 Replacement of Left Knee Joint with Synthetic Substitute, Cemented, Open Approach (ICD-10-PCS; CPT 27447; principal; 2020-03-01 12:45)
DX: M17.12 Unilateral primary osteoarthritis, left knee (principal); M25.562 Pain in left knee; Z96.652 Presence of left artificial knee joint; G89.18 Other acute postprocedural pain; K21.9 Gastro-esophageal reflux disease without esophagitis
CPT/HCPCS: 27447; C1776; 76942; 97162; NC; G0378; J0690; J1885; J2405; J3010

== ENCOUNTER 2020-03-09 09:44 | Outpatient (CLI) | payer MEDICARE, SELFPAY ==
--- NOTE | 2020-03-09 09:00 | DI.RAD_ITS ---
EXAM: XR STANDING ALIGNMENT CLINICAL HISTORY: s/p L TKA TECHNIQUE: COMPARISON: CR XR STANDING ALIGNMENT from 12/09/2019 CR XR KNEE LT 1V from 03/09/2020 FINDINGS: Standing alignment views of both lower extremities and lateral view of the left knee were obtained. There are moderate degenerative changes of both hips and SI joints. There is a total knee joint replacement position on left. Components appear well seated. Moderate t o severe degenerative changes of tibiofemoral joints, medial and lateral, noted on the right. Mild degenerative changes of the joints of both ankles noted. IMPRESSION:
== END 2020-03-09 10:04 ==
PROVIDERS: PCP Nurse Practitioner Family; Referring Provider Nurse Practitioner Family; Visit Provider Student in an Organized Health Care Education/Training Program
DX: M25.562 Pain in left knee (principal); Z96.652 Presence of left artificial knee joint; M16.0 Bilateral primary osteoarthritis of hip; M53.3 Sacrococcygeal disorders, not elsewhere classified; M17.11 Unilateral primary osteoarthritis, right knee; Z47.1 Aftercare following joint replacement surgery; M17.12 Unilateral primary osteoarthritis, left knee
CPT/HCPCS: 73560; 77073

== ENCOUNTER → 2020-04-06 10:01 | Outpatient (BNVA) | payer MEDICARE, SELFPAY | PROVIDERS: PCP Nurse Practitioner Family; Visit Provider Student in an Organized Health Care Education/Training Program | DX: M17.12 Unilateral primary osteoarthritis, left knee (principal); Z47.1 Aftercare following joint replacement surgery; Z96.652 Presence of left artificial knee joint ==

== ENCOUNTER 2020-05-02 09:57 | Outpatient (REF) | payer MEDICARE, SELFPAY ==
[2020-05-02 21:29] LABS: Calculated LDL 177 mg/dL (<100); Cholesterol 273 mg/dL (<200); HDL Cholesterol 38 mg/dL (40-60); TSH (W/Ref FT4) 2.63 uIU/mL (0.36-3.74); Triglyceride 294 mg/dL (<150)
== END 2020-05-02 10:17 ==
LOC: NCHCN 09:57
PROVIDERS: PCP Nurse Practitioner Family; Visit Provider Nurse Practitioner Family
DX: E78.5 Hyperlipidemia, unspecified (principal); Z00.00 Encounter for general adult medical examination without abnormal findings; R53.83 Other fatigue
CPT/HCPCS: 80061; 84443

== ENCOUNTER → 2020-05-25 10:27 | Outpatient (BNVA) | payer MEDICARE, SELFPAY | PROVIDERS: PCP Nurse Practitioner Family; Visit Provider Student in an Organized Health Care Education/Training Program | DX: M17.12 Unilateral primary osteoarthritis, left knee (principal); Z47.1 Aftercare following joint replacement surgery; Z96.652 Presence of left artificial knee joint ==

== ENCOUNTER 2020-06-20 10:25 | Outpatient (REF) | payer MEDICARE, SELFPAY ==
[2020-06-20 21:48] LABS: ALT 31 U/L (14-59); AST 22 U/L (15-37); Albumin 4.1 g/dL (3.4-5.0); Alkaline Phosphatase 99 U/L (46-116); Anion Gap 5.3 mmol/L (3-11); BUN 12 mg/dL (7-18); Bilirubin, Total 0.4 mg/dL (0.2-1.0); CO2 27.7 mmol/L (21.0-32.0); CREATININE 0.64 mg/dL (0.55-1.02); Calcium 9.3 mg/dL (8.5-10.1); Calculated LDL 101 mg/dL (<100); Chloride 106 mmol/L (98-107); Cholesterol 208 mg/dL (<200); Glucose 98 mg/dL (74-106); HDL Cholesterol 42 mg/dL (40-60); Magnesium 1.8 mg/dL (1.8-2.4); Potassium 4.6 mmol/L (3.5-5.1); Sodium 139 mmol/L (136-145); Triglyceride 328 mg/dL (<150); Vitamin B12 334 pg/mL (193-986)
[2020-06-22 05:41] LABS: Vitamin D 25 Total 44.6 ng/ml (30-100)
== END 2020-06-20 10:45 ==
LOC: NCHCN 10:25
PROVIDERS: PCP Nurse Practitioner Family; Visit Provider Nurse Practitioner Family
DX: E53.8 Deficiency of other specified B group vitamins (principal); R53.83 Other fatigue; E55.9 Vitamin D deficiency, unspecified; E78.5 Hyperlipidemia, unspecified
CPT/HCPCS: 80053; 80061; 82306; 82607; 83735

== ENCOUNTER 2020-12-07 16:15 | Outpatient (REF) | payer MEDICARE, SELFPAY ==
[2020-12-07 13:57] LABS: TSH (W/Ref FT4) 1.93 uIU/mL (0.36-3.74)
== END 2020-12-07 16:16 | disposition home or self-care (01) ==
LOC: NCHCN 16:15
PROVIDERS: PCP Nurse Practitioner Family; Visit Provider Nurse Practitioner Family
DX: R53.83 Other fatigue (principal); E04.2 Nontoxic multinodular goiter; F41.8 Other specified anxiety disorders; R07.89 Other chest pain
CPT/HCPCS: 84443

== ENCOUNTER 2020-12-29 15:31 | Outpatient (REF) | payer MEDICARE, SELFPAY ==
--- NOTE | 2020-12-29 14:24 | SKI_PTH ---
PATIENT: Ginger Davila LOC: [facility] U#:[id number] AGE/SX: 80/F ROOM: RE12/29/[address]: Lydia Estrella : 1940 BED: DIS: 12/29/2020 SPEC #: [id number] RECD: 01/01/21 11:01 STATUS: ANNE RUIZ #: [id number] MARICARMEN: 12/29/20 14:[address]: Lydia Estrella DEPT: Surgical Specimen RECD BY: Shagufta Aguilera Tissues: 1 - SKIN BIOPSY(SHAVE/PUNCH) Procedures: SKIN LEVEL 4 Comments: [id number]
== END 2020-12-29 15:32 | disposition home or self-care (01) ==
LOC: NCHCN 15:31
PROVIDERS: PCP Nurse Practitioner Family; Visit Provider Nurse Practitioner Family
DX: L57.0 Actinic keratosis (principal)
CPT/HCPCS: 88305

== ENCOUNTER 2021-03-02 10:40 | Outpatient (CLI) | payer MEDICARE, SELFPAY ==
--- NOTE | 2021-03-02 10:30 | DI.RAD_ITS ---
Exam(s) XR KNEE LT 2V AP,LAT EXAM: XR KNEE LT 2V AP,LAT CLINICAL HISTORY: ANNUAL F/U L TKA TECHNIQUE: COMPARISON: CR XR KNEE LT 1V from 03/09/2020 FINDINGS: Two views were obtained. There is a total knee joint replacement in position. The components appear well seated. No other significant bony abnormality seen. IMPRESSION: RADIATION DOSE DELIVERED: Total DLP
== END 2021-03-02 10:41 | disposition home or self-care (01) ==
LOC: DIORS 10:41
PROVIDERS: PCP Nurse Practitioner Family; Visit Provider Student in an Organized Health Care Education/Training Program
DX: Z47.1 Aftercare following joint replacement surgery (principal); Z96.652 Presence of left artificial knee joint; M17.12 Unilateral primary osteoarthritis, left knee
CPT/HCPCS: 99213; 73560

== ENCOUNTER 2021-04-24 11:55 | Outpatient (REF) | payer MEDICARE, SELFPAY | END 2021-04-24 11:56 | disposition home or self-care (01) | LOC: NCHCN 11:55 | PROVIDERS: PCP Nurse Practitioner Family; Visit Provider Nurse Practitioner Family | DX: R30.0 Dysuria (principal) | CPT/HCPCS: 87086 ==

== ENCOUNTER 2021-05-01 13:59 | Outpatient (REF) | payer MEDICARE, SELFPAY | END 2021-05-01 14:00 | disposition home or self-care (01) | LOC: NCHCN 13:59 | PROVIDERS: PCP Nurse Practitioner Family; Visit Provider Nurse Practitioner Family | DX: R30.0 Dysuria (principal) | CPT/HCPCS: 87480; 87510; 87660 ==

== ENCOUNTER 2021-07-20 10:08 | Outpatient (REF) | payer MEDICARE, SELFPAY ==
[2021-07-20 14:28] LABS: HCT 42.5 % (36.0-46.0); HGB 13.9 g/dL (11.2-15.7); MCH 29.4 pg (27.0-33.0); MCHC 32.7 % (32.0-36.0); MPV 9.5 fL (8.0-11.0); Platelet Count 289 10^3/uL (130-400); RBC 4.72 10^6/uL (3.93-5.22); RDW 12.2 % (11.7-14.6); RDW-SD 40.6 fL; WBC 6.25 10^3/uL (4.4-10.8)
[2021-07-20 14:54] LABS: ALT 25 U/L (14-59); AST 21 U/L (15-37); Albumin 4.1 g/dL (3.4-5.0); Alkaline Phosphatase 80 U/L (46-116); Anion Gap 8.5 mmol/L (3-11); BUN 14 mg/dL (7-18); Bilirubin, Total 0.4 mg/dL (0.2-1.0); CO2 27.5 mmol/L (21.0-32.0); CREATININE 0.7 mg/dL (0.55-1.02); Calcium 10.4 mg/dL (8.5-10.1); Calculated LDL 230 mg/dL (<100); Chloride 105 mmol/L (98-107); Cholesterol 316 mg/dL (<200); Glucose 89 mg/dL (74-106); HDL Cholesterol 50 mg/dL (40-60); Potassium 4.2 mmol/L (3.5-5.1); Sodium 141 mmol/L (136-145); TSH (W/Ref FT4) 2.31 uIU/mL (0.36-3.74); Total Protein 7.3 g/dL (6.4-8.2); Triglyceride 184 mg/dL (<150)
[2021-07-20 15:07] LABS: C-Reactive Protein 0.06 mg/dL (0.0-0.3)
== END 2021-07-20 10:09 | disposition home or self-care (01) ==
LOC: NCHCN 10:08
PROVIDERS: PCP Nurse Practitioner Family; Visit Provider Family Medicine
DX: K92.1 Melena (principal); R53.83 Other fatigue
CPT/HCPCS: 80053; 80061; 85027; 84443; 86140

== ENCOUNTER 2021-08-14 04:27 | Outpatient (CLI) | payer MEDICARE, SELFPAY ==
[2021-08-14 11:53] LABS: ESR 10 mm/hr (0-30)
[2021-08-14 21:37] LABS: Ionized Calcium 1.18 mmol/L (1.12-1.32)
[2021-08-15 01:35] LABS: Anion Gap 9.1 mmol/L (3-11); BUN 12 mg/dL (7-18); CO2 26.9 mmol/L (21.0-32.0); CREATININE 0.6 mg/dL (0.55-1.02); Calcium 9.5 mg/dL (8.5-10.1); Chloride 106 mmol/L (98-107); Glucose 89 mg/dL (74-106); Potassium 4.2 mmol/L (3.5-5.1); Sodium 142 mmol/L (136-145)
[2021-08-15 01:36] LABS: Vitamin B12 1043 pg/mL (193-986)
[2021-08-15 12:00] LABS: Parathyroid Hormone,Intact 111 pg/mL (19-88)
[2021-08-15 14:53] LABS: ANA Interpretation Positive (Negative); ANA Titer Pattern 1:160 Homogeneous
[2021-08-16 04:13] LABS: Vitamin D 25 Total 44.4 ng/mL (30-100)
== END 2021-08-14 04:28 | disposition home or self-care (01) ==
PROVIDERS: PCP Nurse Practitioner Family; Visit Provider Nurse Practitioner Family
DX: E83.52 Hypercalcemia (principal); R53.83 Other fatigue; E04.2 Nontoxic multinodular goiter; E53.8 Deficiency of other specified B group vitamins; F41.8 Other specified anxiety disorders
CPT/HCPCS: 36415; 80048; 82306; 85652; 82330; 82607; 83970; 86038

== ENCOUNTER 2021-08-22 13:22 | Outpatient (REF) | payer MEDICARE, SELFPAY ==
[2021-08-22 21:57] LABS: Total Iron Binding Capacity 272 ug/dL (250-450)
[2021-08-22 22:12] LABS: Ferritin 217 ng/mL (8-252)
[2021-08-24 13:28] LABS: dsDNA Ab, IgG <12.3 IU/mL (<30.0)
[2021-08-28 11:06] LABS: Specimen WB Whole Blood
[2021-08-28 15:32] LABS: RNP Ab, IgG 1.4 Units (<20.0); SS-A Antibody 1.1 Units (<20.0); SS-B (La) Ab, IgG 1.2 Units (<20.0); Sm (Smith) Ab, IgG 1.3 Units (<20.0)
== END 2021-08-22 13:23 | disposition home or self-care (01) ==
LOC: NCHCN 13:22
PROVIDERS: PCP Nurse Practitioner Family; Visit Provider Nurse Practitioner Family
DX: R79.89 Other specified abnormal findings of blood chemistry (principal); Z83.2 Family history of diseases of the blood and blood-forming organs and certain disorders involving the immune mechanism
CPT/HCPCS: 81256; 82728; 83550; 86225; 86235

== ENCOUNTER 2021-09-06 01:30 | Outpatient (CLI) | payer MEDICARE, SELFPAY ==
--- NOTE | 2021-09-06 07:00 | DI.US_ITS ---
Exam(s) US THYROID EXAM: US THYROID CLINICAL HISTORY: ELEVATED PARATHYROID HORMONE R79.89 HYPERCALCEMIA E83.52. TECHNIQUE: Ultrasound thyroid performed using standard protocol. COMPARISON: Prior thyroid ultrasound examination performed the June 2018 was reviewed. FINDINGS: RIGHT THYROID LOBE: Measures 1.6 cm AP x 1.7 cm wide x 4.3 cm craniocaudal The right thyroid lobe contains multiple small nodules which appear unchanged. Nodule #1 The largest nodule in the right lobe is located laterally, measuring 8 millimeters wide by 7 millimet ers AP in the transverse plane and 8 millimeters craniocaudal, approximately equal to the prior size on June 2018. Composition: Mixed cystic/solid-1 point Echogenicity: Relatively hypoechoic-2 point Shape: Wider than taller-0 points Margin: Smooth- 0 points Echogenic Foci: None or large comet-tail artifact- 0 points Total Points for this nodule: 3 ACR Ti-Rads Category: TR3 Nodule #2 Second nodule is located anteriorly subcapsular Size: Measures 7 millimeters wide by millimeters AP transverse plane by 6 millimeter craniocaudal Composition: Solid-2 points Echogenicity: Isoechoic-1 point Shape: Wider than taller- 0 points Margin: Smooth-0 points Echogenic Foci: None-0 point Total points for this nodule: 3 ACR Ti-Rads Category: TR3 Nodule #3 There is an 8 by 6 millimeter nodule behind the inferior aspect of the right lobe which is probably a parathyroid nodule and not evident on the prior images of 2018 ISTHMUS: Left side of the isthmus is slightly thickened by nodule at this, previously present. Main part of the isthmus measures 2-3 millimeters thick which is within normal limits. Wider than taller well-defined nodule in left side of the isthmus also appears unchanged from the prior study. LEFT THYROID LOBE: Measures 1.9 cm AP x 2.1 wide x 5.1 cm craniocaudal The left thyroid lobe is again noted be larger than the right and again contains larger nodules. The re are 2 dominant larger solid nodules. Nodule #1 the more superior of the 2 left lobe nodules is almost uniformly solid. Size: Measures 1.9 cm wide x 1.9 cm AP in the transverse plane x 2.3 cm craniocaudal. This is unchan ged in size from 2018 Composition: Solid-2 points Echogenicity: Isoechoic to the surrounding parenchyma-1 points Shape:-0 points Margin: Lobulated-2 points Echogenic Foci: None-0 points Total points for this nodule: 5 ACR Ti-Rads Category: 4. This nodule would qualify for FNA given kedar t it is greater than 1.5 cm in size., However, is unchanged from at least 2018. Nodule #2 this is the more inferior of the 2 left lobe nodules and is predominantly solid Size: Measures 1.8 cm wide by 2.2 cm AP in the transverse plane by 2.3 cm craniocaudal cm Composition: Solid-2 points Echogenicity: Relatively hypoechoic-2 point Shape: Taller than wider-3 point Margin: Lobulated-2 points Echogenic Foci: Single macro calcification-1 point Total Points for this nodule: 10 ACR Ti-Rads Category: 5. This nodule is suspicious and should under go FNA given that it is greater than 1 cm with a TR 5 rating LYMPH NODES: There is no significant adenopathy. IMPRESSION: 1. There is stable appearance of the right thyroid lobe nodules, none of which require FNA. 2. Although there is relative is stability in the appearance of the larger left lobe nodules, the mor e inferior of the 2 nodules does register as TR 5 and therefore would classify for ultrasound-guided FNA. 3. There is an 8 x 6 millimeter nodule behind the inferior aspect of the right thyroid lobe which is probably a parathyroid gland was not evident on images of 2018. This may be a significant finding gi uri here (apparently elevated parathyroid hormone/hypercalcemia). 4. There is no gross lymphadenopathy on either side of the neck. DATA REPOSITORY:
== END 2021-09-06 01:50 ==
PROVIDERS: PCP Nurse Practitioner Family; Visit Provider Nurse Practitioner Family
DX: R79.89 Other specified abnormal findings of blood chemistry (principal); E83.52 Hypercalcemia; R93.89 Abnormal findings on diagnostic imaging of other specified body structures
CPT/HCPCS: 76536

== ENCOUNTER 2021-09-13 16:18 | Outpatient (REF) | payer MEDICARE, SELFPAY | END 2021-09-13 16:19 | disposition home or self-care (01) | LOC: NCHCN 16:18 | PROVIDERS: PCP Nurse Practitioner Family; Visit Provider Nurse Practitioner Family | DX: R30.0 Dysuria (principal) | CPT/HCPCS: 87086 ==

== ENCOUNTER 2021-09-17 01:58 | Outpatient (CLI) | payer MEDICARE, SELFPAY ==
--- NOTE | 2021-09-17 | DI.RAD_ITS ---
Exam(s) XR SACRUM COCCYX EXAM: XR SACRUM COCCYX CLINICAL HISTORY: HYPERCALCEMIA, E83.52, COCCYX PAIN, M53.3, LUMBAR BACK PAIN, M54.5. TECHNIQUE: 2D digital imaging was performed. COMPARISON: No exams were available for comparison FINDINGS: No evidence of obvious sacral fracture. Degenerative changes are noted in the left sacroiliac joint; less so in the right SI joint. Chronic degenerative disc disease changes in the lumbar spine noted. Hips appear unremarkable. No osseous lesions. IMPRESSION: DATA REPOSITORY: RADIATION DOSE DELIVERED:
== END 2021-09-17 02:18 ==
PROVIDERS: PCP Nurse Practitioner Family; Visit Provider Nurse Practitioner Family
DX: M53.3 Sacrococcygeal disorders, not elsewhere classified (principal); M51.36 Other intervertebral disc degeneration, lumbar region; M54.59 Other low back pain; E83.52 Hypercalcemia
CPT/HCPCS: 72220

== ENCOUNTER 2021-10-12 00:49 | Outpatient (CLI) | payer MEDICARE, SELFPAY ==
--- NOTE | 2021-10-12 | DI.DEXA_ITS ---
Exam(s) XR DEXA BONE DENSITY W/WO GREYSON EXAM: XR DEXA BONE DENSITY W/WO GREYSON CLINICAL HISTORY: SCREENING FOR OSTEOPOROSIS IN POSTMENOPAUSAL WOMAN,Z78.0,PARATHYROID TECHNIQUE: COMPARISON: Comparison examination is 01/21/2011. FINDINGS: Lateral Spine Image: Unremarkable. No compression deformities identified. Left hip: Total T-Score: -2.2. This compares to -0.9 on the prior examination. Note is made of osteoporosis in the femoral neck with a T-score -3.3. Total Z-Score: -0.2 T- and Z-scores: Osteoporosis in the femoral neck. Lumbar Spine: Total T-Score: -1.9. This compares to -1.2 on the prior examination. Total Z-Score: 0.8 T- and Z-scores: Findings consistent with osteopenia. 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
== END 2021-10-12 01:09 ==
PROVIDERS: PCP Nurse Practitioner Family; Visit Provider Nurse Practitioner Family
DX: Z78.0 Asymptomatic menopausal state (principal)
CPT/HCPCS: 77080

== ENCOUNTER 2021-10-26 10:19 | Outpatient (REF) | payer MEDICARE, SELFPAY ==
[2021-10-26 16:24] LABS: ALT 33 U/L (14-59); AST 22 U/L (15-37); Albumin 3.7 g/dL (3.4-5.0); Alkaline Phosphatase 79 U/L (46-116); Anion Gap 9.2 mmol/L (3-11); BUN 9 mg/dL (7-18); Bilirubin, Total 0.4 mg/dL (0.2-1.0); CO2 25.8 mmol/L (21.0-32.0); CREATININE 0.7 mg/dL (0.55-1.02); Calcium 9.3 mg/dL (8.5-10.1); Calculated LDL 126 mg/dL (<100); Chloride 105 mmol/L (98-107); Cholesterol 211 mg/dL (<200); Glucose 90 mg/dL (74-106); HDL Cholesterol 55 mg/dL (40-60); Magnesium 1.8 mg/dL (1.8-2.4); Potassium 4.2 mmol/L (3.5-5.1); Sodium 140 mmol/L (136-145); Total Protein 6.8 g/dL (6.4-8.2); Triglyceride 154 mg/dL (<150); Vitamin B12 744 pg/mL (193-986)
== END 2021-10-26 10:20 | disposition home or self-care (01) ==
LOC: NCHCN 10:19
PROVIDERS: PCP Nurse Practitioner Family; Visit Provider Nurse Practitioner Family
DX: E78.5 Hyperlipidemia, unspecified (principal); E21.5 Disorder of parathyroid gland, unspecified; M81.0 Age-related osteoporosis without current pathological fracture; R13.10 Dysphagia, unspecified
CPT/HCPCS: 80053; 80061; 82607; 83735

== ENCOUNTER 2021-11-17 05:05 | Emergency (ER) | payer MEDICARE, SELFPAY ==
[2021-11-17] VITALS (13 sets, daily range): BP systolic 134–171; BP diastolic 67–84; PULSE 61–75; RESP 16–22; TEMP 36.7; O2SAT 96–98
--- NOTE | 2021-11-17 05:00 | RT.EKG_ITS ---
APPROVED REPORT Exam: Resting ECG Reason for Exam: dizziness Patient Location: E HR:66 bpm ECG Measurements Heart Rate 66 AXIS WV 181 P 58 QRSd 99 QRS -36 QT 425 T 43 QTc 446 Conclusion Sinus rhythm...normal P axis, V-rate 60- 99 Inferior infarct, old...Q >35mS, II III aVF
--- NOTE | 2021-11-17 05:27 | ED.GENADUL_ITS ---
Discharge Plan Disposition Patient Disposition: HOME Condition: Improving Discharge Details Clinical Impression: Dizziness, Diverticulitis Primary Care Provider: Lydia Estrella ED Provider: Mirna Cheney Home Meds and New Rx's Prescriptions: New meclizine 25 mg tablet 25 mg PO TID PRN (Reason: dizziness) Qty: 30 0RF ciprofloxacin HCl 500 mg tablet 500 mg PO BID 7 Days Qty: 14 0RF metronidazole 500 mg tablet 500 mg PO TID 7 Days Qty: 21 0RF Continued pantoprazole 20 mg Tablet,Delayed Release (Dr/Ec) 20 mg PO DAILY 0RF ibuprofen 200 mg tablet 200 mg PO BID PRN0RF aspirin [Aspir-81] 81 mg tablet,delayed release (DR/EC) 81 mg PO DAILY 0RF cholecalciferol (vitamin D3) 1,000 UNIT capsule 3,000 unit PO HS Qty: 180 0RF atorvastatin 20 mg tablet 20 mg PO DAILY 0RF Label Comments: TAKE ONE TABLET BY MOUTH EVERY DAY fluoxetine 10 mg capsule 10 mg PO DAILY 0RF Label Comments: TAKE ONE CAPSULE BY MOUTH EVERY DAY Discharge Instructions Instructions: Diverticulitis (ED), Diverticulitis Diet (ED), Dizziness (ED) Additional Instructions: Your lab work, EKG and imaging of your brain today is reassuring and shows no evidence of acute significant abnormal findings. A prescription for meclizine for your dizziness has been sent electronically to your pharmacy. Take this as needed and directed for dizziness. The CT scan of your abdomen today noted early uncomplicated diverticulitis. There was no evidence of acute bony injury on this CT scan. As you had two episodes of abdominal pain here in the emergency department, it is recommended by general surgery to be treated with oral antibiotics for 7 days. Prescription for two antibiotics have been sent electronically to your pharmacy. Take these as directed until finished. Call the general surgery office on Friday to schedule a follow-up appointment for reevaluation and for scheduling of a colonoscopy once your abdominal infection resolves. Call your primary care doctor on Friday to schedule a follow-up appointment for reevaluation and for referral for MRI of your brain if your dizziness does not improve or worsens. Return immediately to the emergency department if you develop any worsening or new concerning symptoms. Referrals: Liliana Corrales MD [ [facility] STAFF PHYSICIAN] - Discharge Data Discharge Date/Time-TO BE ENTERED AT DEPARTURE: 11/17/21 10:18 Discharge Physician: Mirna Cheney Medical Decision Making <Nish Polo MD - Last Filed: 11/17/21 06:53> 81 yo female with no significant pmhx other than hld and gerd, denies prior cardiac issues, comes in with cc of waking up feeling off. She states she went to bed feeling well then when she woke she noticed she felt dizzy as well as lightheaded and didn't feel herself and also noted tingling in her hands. Denies any chest pain, dyspnea, headache, vomit, abdominal pain. She is not sure what makes her symptoms better or worse. She has never had symptoms like this in the past. She arrives ambulating with a normal gait, caox4. CN II-XII intact, no focal motor or sensation deficits and clear speech, nih of 0 with reassuring HINTS exam. Unclear exact etiology of her dizziness and feeling off sensation. Suspect this could be peripheral vertigo and will treat with meclizine. Given she has never had symptoms like this before will also cta neck/brain to evaluate for dissection, no findings to suggest cva on exam. Will also evaluate for anemia, electrolyte abnormalities and though she has no chest pain given she is elderly and could present atypically will obtain ecg and troponin as well. pt's dizziness improved, labs unremarkable, ct shows no acute findings does have verebral arteries that become diminutive after intracranial entrance and bilateral posterior cerebral arteries are predominatly supplied by posterior communicating arteries. She states she no longer feels dizzy but is now complaining of lower back and right hip pain. She states this has been hurting since falling from standing over a week ago and had no loc at that time. She states moving hurts. She has tenderness to the lower right back as well as righthip but does have full rom of the hip, no stepoffs of the spine. Suspect contusion but will obtain ct to evaluate for fracture and other traumatic injuries pt signed out to oncoming provider pending delta troponin and ct imaging results. If pt able to ambulate and continues to be stable can likely be discharged home Differential Diagnosis Differential Diagnosis: anemia, electrolyte abnormality, vertigo, nstemi Medical Records Medical records reviewed: Yes I reviewed the patient's medical records. Imaging Data Radiologic Study: Radiologist's impression: IMPRESSION: 1. No carotid stenosis or occlusion identified. 2. The vertebral arteries become diminutive after the intracranial entrance. Bilateral posterior cerebral arteries are predominantly supplied by prominent posterior communicating arteries. Lab Data Lab results reviewed: Yes I reviewed the patient's lab results. ECG Data Attestation: I personally reviewed and interpreted this ECG (s) as follows: Prior ECG tracings: not available for review Interpretation: sinus rhythm, rate of 66, pr 181 <Mirna Cheney, DO - Last Filed: 11/18/21 18:34> 81 yo female with no significant pmhx other than hld and gerd, denies prior cardiac issues, comes in with cc of waking up feeling off. She states she went to bed feeling well then when she woke she noticed she felt dizzy as well as lightheaded and didn't feel herself and also noted tingling in her hands. Denies any chest pain, dyspnea, headache, vomit, abdominal pain. She is not sure what makes her symptoms better or worse. She has never had symptoms like this in the past. She arrives ambulating with a normal gait, caox4. CN II-XII intact, no focal motor or sensation deficits and clear speech, nih of 0 with reassuring HINTS exam. Unclear exact etiology of her dizziness and feeling off sensation. Suspect this could be peripheral vertigo and will treat with meclizine. Given she has never had symptoms like this before will also cta neck/brain to evaluate for dissection, no findings to suggest cva on exam. Will also evaluate for anemia, electrolyte abnormalities and though she has no chest pain given she is elderly and could present atypically will obtain ecg and troponin as well. pt's dizziness improved, labs unremarkable, ct shows no acute findings does have verebral arteries that become diminutive after intracranial entrance and bilateral posterior cerebral arteries are predominatly supplied by posterior communicating arteries. She states she no longer feels dizzy but is now compla ining of lower back and right hip pain. She states this has been hurting since falling from standing over a week ago and had no loc at that time. She states moving hurts. She has tenderness to the lower right back as well as righthip but does have full rom of the hip, no stepoffs of the spine. Suspect contusion but will obtain ct to evaluate for fracture and other traumatic injuries pt signed out to oncoming provider pending delta troponin and ct imaging results. If pt able to ambulate and continues to be stable can likely be discharged home 0800 -- Please see Dr. Polo's note for initial presentation, exam and plan. Case endorsed to follow-up on CT renal colic with view of the lumbar spine and repeat troponin and if negative and patient continues to feel better, will plan for discharge home. A prescription for meclizine has been written. Her EKG notes a rate of 66, sinus a normal QRS and QTc. CT abdomen and pelvis without IV contrast notes 1. No evidence of urolithiasis or obstructing urinary stone. 2. Likely early uncomplicated diverticulitis of the sigmoid colon in the left lower quadrant. Repeat troponin negative. 0940 --patient reassessed by me at bedside and currently is asymptomatic. She states her dizziness and nausea have been resolved for the past couple hours. She does endorse two episodes of crampy 7/10 lower abdominal pain worse on the left side while urinating here in the ED. She currently denies any abdominal pain. She denies any fever, vomiting, other urinary symptoms, diarrhea or rectal bleeding. Case discussed with general surgery who agrees with plan for treating for uncomplicated diverticulitis with Cipro and Flagyl. Patient is agreeable with this plan. As she has no fever, normal white blood cell count and is currently asymptomatic, will plan for discharge to home. Discussed with patient that it is unclear if her dizziness which she describes as feeling a spinning or off-balance sensation is related to her diverticulitis or vertigo, etc. Her history and presentation does not appear consistent with CVA and do not see an indication for transfer for emergent MRI at this time and patient is agreeable. She was given a dose of Cipro and Flagyl here and prescription sent electronically to her pharmacy. She was advised to call her PCP on Friday for follow-up and for referral for outpatient MRI brain if her symptoms do not improve or worsen. She was also placed on surgery follow-up list for reevaluation and consideration for colonoscopy sooner than later. Usual and customary return precautions given prior to discharge. Imaging Data Radiologic Study: Radiologist's impression: CT Head Without Contrast Exam date and time: 11/17/2021 5:36 AM Age: 81 years old Clinical indication: Dizziness and giddiness TECHNIQUE: Imaging protocol: Computed tomography of the head without contrast. Other technique: STROKE PROTOCOL was implemented. COMPARISON: US THYROID 09/06/2021 7:05 AM FINDINGS: Brain: No acute hemorrhage identified. No large territorial areas of hypoattenuation concerning for ischemic infarct identified. No intracranial mass effect. Cerebral ventricles: The ventricles are within normal limits. Paranasal sinuses: The visualized sinuses are unremarkable.? Mastoid air cells: The visualized mastoid air cells are well aerated. Bones/joints: The osseous structures are intact. Soft tissues: Unremarkable. IMPRESSION: No acute intracranial abnormality. ASSESSMENT: ASPECTS (Comins Stroke Program Early CT Score) is 10. CT Angiography Head With Contrast, Arteriography Exam date and time: 11/17/2021 5:36 AM Age: 81 years old Clinical indication: Dizziness and giddiness TECHNIQUE: Imaging protocol: Computed tomography angiography of the head with contrast. Exam focused on the arteries. 3D rendering (Not supervised by radiologist): MIP and/or 3D reconstructed images were created by the technologist. Radiation optimization: All CT scans at this facility use at least one of these dose optimization techniques: automated exposure control; mA and/or kV adjustment per patient size (includes targeted exams where dose is matched to clinical indication); or iterative reconstruction. Contrast material: OMNIPAQUE 350; Contrast volume: 85 ml; Contrast route: INTRAVENOUS (IV);? COMPARISON: US THYROID 09/06/2021 7:05 AM FINDINGS: ANTERIOR CIRCULATION: Right internal carotid artery: Unremarkable. Intracranial segment is patent with no significant stenosis. No aneurysm. Right middle cerebral artery: Unremarkable. No occlusion or significant stenosis. No aneurysm.? Right anterior cerebral artery: Unremarkable. No occlusion or significant stenosis. No aneurysm.? Left internal carotid artery: Unremarkable. Intracranial segment is patent with no significant stenosis. No aneurysm. Left middle cerebral artery: Unremarkable. No occlusion or significant stenosis. No aneurysm.? Left anterior cerebral artery: Unremarkable. No occlusion or significant stenosis. No aneurysm.? POSTERIOR CIRCULATION: Right vertebral artery: The right vertebral artery becomes severely diminutive at the intracranial entrance and does not significantly supply the basilar artery. Left vertebral artery: Mildly diminutive post the intracranial entrance. Basilar artery: Unremarkable. No occlusion or significant stenosis. No aneurysm. Right posterior cerebral artery: Predominately supplied by the right posterior communicating artery. Left posterior cerebral artery: Predominantly supplied by the left posterior communicating artery. Brain: No definite mass, mass effect, or midline shift. Cerebral ventricles: No ventriculomegaly. Bones/joints: Unremarkable. No acute fracture. Soft tissues: Unremarkable. IMPRESSION: No significant intracranial arterial occlusion identified. CT Angiography Neck With Contrast Exam date and time: 11/17/2021 5:36 AM Age: 81 years old Clinical indication: Dizziness and giddiness TECHNIQUE: Imaging protocol: Computed tomography angiography of the neck with contrast. 3D rendering (Not supervised by radiologist): MIP and/or 3D reconstructed images were created by the technologist. Radiation optimization: All CT scans at this facility use at least one of these dose optimization techniques: automated exposure control; mA and/or kV adjustment per patient size (includes targeted exams where dose is matched to clinical indication); or iterative reconstruction. Contrast material: OMNIPAQUE 350; Contrast volume: 85 ml; Contrast route: INTRAVENOUS (IV);? COMPARISON: US THYROID 09/06/2021 7:05 AM FINDINGS: Right common carotid artery: No stenosis. No dissection or occlusion. Right internal carotid artery: No stenosis of the extracranial segment. No dissection or occlusion. Right external carotid artery: No occlusion or stenosis of the origin.? Left common carotid artery: No stenosis. No dissection or occlusion. Left internal carotid artery: No stenosis of the extracranial segment. No dissection or occlusion. Left external carotid artery: No occlusion or stenosis of the origin.? Right vertebral artery: The right vertebral artery becomes severely diminutive at the intracranial entrance and does not significantly supply the basilar artery. Left vertebral artery: Mildly diminutive post the intracranial entrance. Thyroid: Heterogeneity of the left thyroid lobe with multiple likely nodules the largest of which measures up to approximately 1.5 cm. Thick calcification noted in the left thyroid. Thyroid isthmus nodule noted measuring up to approximately in 1.0 cm. Right thyroid nodule measuring up to 7 mm. Soft tissues: Normal. No significant soft tissue swelling. Bones/joints: Mild multilevel degenerative changes in the cervical spine. IMPRESSION: 1. No carotid stenosis or occlusion identified. 2. The vertebral arteries become diminutive after the intracranial entrance.? Bilateral posterior cerebral arteries are predominantly supplied by prominent posterior communicating arteries. 3. Multinodular thyroid. CT Abdomen And Pelvis Without Contrast Exam date and time: 11/17/2021 6:51 AM Age: 81 years old Clinical indication: Abdominal pain TECHNIQUE: Imaging protocol: Computed tomography of the abdomen and pelvis without contrast. COMPARISON: CR XR hip RT complete AP pelvis 06/02/2019 1:28 PM FINDINGS: Lungs: Lung bases are clear. Heart: Imaged heart is normal. Diaphragm: Small hiatal hernia. Liver: Normal. No mass. Gallbladder and bile ducts: Normal. No calcified stones. No ductal dilation. Pancreas: Normal. No ductal dilation. Spleen: Normal. No splenomegaly. Adrenal glands: Normal. No mass. Kidneys and ureters: There is contrast within the renal collecting systems and urinary bladder, likely excreted contrast from the CTA performed earlier today. No definite urinary stones. No evidence of hydronephrosis or hydroureter. There is a 2.3 cm simple cyst of the left midpole. Stomach and bowel: Colonic diverticulosis. There is very mild pericolonic inflammatory stranding in the left lower quadrant, possibly associated with some mild wall thickening . No pericolonic fluid collection. Small bowel is normal in caliber without wall thickening. Appendix: Normal appendix. Intraperitoneal space: Unremarkable. No free air. No significant fluid collection. Vasculature: Atherosclerosis of the abdominal aorta without aneurysm. Lymph nodes: Unremarkable. No enlarged lymph nodes. Urinary bladder:? Intraluminal contrast.? No focal wall thickening or mass. Reproductive: Unremarkable as visualized. Bones/joints: Degenerative changes of the spine, sacroiliac joints, and hips. Soft tissues: Small fat containing periumbilical hernia. IMPRESSION: 1. No evidence of urolithiasis or obstructing urinary stone. 2. Likely early uncomplicated diverticulitis of the sigmoid colon in the left lower quadrant. Lab Data Labs: Laboratory Tests Range/Units 11/17/21 11/17/21 11/17/21 05:20 05:27 05:27 WBC (4.4-10.8) 10^3/uL 4.91 RBC (3.93-5.22) 10^6/uL 4.68 Hgb (11.2-15.7) g/dL 13.8 Hct (36.0-46.0) % 42.7 MCV (80-95) fL 91.2 MCH (27.0-33.0) pg 29.5 MCHC (32.0-36.0) % 32.3 RDW (11.7-14.6) % 12.2 Plt Count (130-400) 10^3/uL 276 MPV (8.0-11.0) fL 8.7 Immature Gran % 0.2 Neutrophils % 50.2 Lymphocytes % 39.1 Monocytes % 7.9 Eosinophils % 2.0 Basophils % 0.6 Nucleated RBC % % 0 Absolute Neutrophils (1.2-6.7) 10^3/uL 2.46 Absolute Lymphocytes (1.2-3.4) 10^3/uL 1.92 Absolute Monocytes (0.1-0.8) 10^3/uL 0.39 Absolute Eosinophils (0.0-0.7) 10^3/uL 0.10 Absolute Basophils (0.0-0.2) 10^3/uL 0.03 Sodium (136-145) mmol/L 138 Potassium (3.5-5.1) mmol/L 3.5 Chloride (98-107) mmol/L 105 Carbon Dioxide (21.0-32.0) mmol/L 23.5 Anion Gap (3-11) mmol/L 9.5 BUN (7-18) mg/dL 12 Creatinine (0.55-1.02) mg/dL 0.6 Estimated GFR/1.73 m2 (mL/min/1.73m2) >= 60.00 Glucose (74-106) mg/dL 101 Calcium (8.5-10.1) mg/dL 9.3 Magnesium (1.8-2.4) mg/dL 1.9 Total Bilirubin (0.2-1.0) mg/dL 0.4 AST (15-37) U/L 20 ALT (14-59) U/L 37 Alkaline Phosphatase (46-116) U/L 88 Troponin I (<or=60) ng/L < 50 Total Protein (6.4-8.2) g/dL 7.2 Albumin (3.4-5.0) g/dL 3.7 Urine Color (Yellow) Yellow Urine Clarity (Clear) Clear Urine pH (5-8) 7.0 Ur Specific Brandon (1.005-1.025) 1.025 Urine Protein (Negative) mg/dL Negative Urine Ketones (Negative) mg/dL Negative Urine Blood (Negative) Negative Urine Nitrite (Negative) Negative Urine Bilirubin (Negative) Negative Urine Urobilinogen (Up TO 0.2) EU/dL 0.2 Ur Leukocyte Esterase (Negative) Negative Urine Glucose (Negative) mg/dL Negative Range/Units 11/17/21 08:42 WBC (4.4-10.8) 10^3/uL RBC (3.93-5.22) 10^6/uL Hgb (11.2-15.7) g/dL Hct (36.0-46.0) % MCV (80-95) fL MCH (27.0-33.0) pg MCHC (32.0-36.0) % RDW (11.7-14.6) % Plt Count (130-400) 10^3/uL MPV (8.0-11.0) fL Immature Gran % Neutrophils % Lymphocytes % Monocytes % Eosinophils % Basophils % Nucleated RBC % % Absolute Neutrophils (1.2-6.7) 10^3/uL Absolute Lymphocytes (1.2-3.4) 10^3/uL Absolute Monocytes (0.1-0.8) 10^3/uL Absolute Eosinophils (0.0-0.7) 10^3/uL Absolute Basophils (0.0-0.2) 10^3/uL Sodium (136-145) mmol/L Potassium (3.5-5.1) mmol/L Chloride (98-107) mmol/L Carbon Dioxide (21.0-32.0) mmol/L Anion Gap (3-11) mmol/L BUN (7-18) mg/dL Creatinine (0.55-1.02) mg/dL Estimated GFR/1.73 m2 (mL/min/1.73m2) Glucose (74-106) mg/dL Calcium (8.5-10.1) mg/dL Magnesium (1.8-2.4) mg/dL Total Bilirubin (0.2-1.0) mg/dL AST (15-37) U/L ALT (14-59) U/L Alkaline Phosphatase (46-116) U/L Troponin I (<or=60) ng/L < 50 Total Protein (6.4-8.2) g/dL Albumin (3.4-5.0) g/dL Urine Color (Yellow) Urine Clarity (Clear) Urine pH (5-8) Ur Specific Brandon (1.005-1.025) Urine Protein (Negative) mg/dL Urine Ketones (Negative) mg/dL Urine Blood (Negative) Urine Nitrite (Negative) Urine Bilirubin (Negative) Urine Urobilinogen (Up TO 0.2) EU/dL Ur Leukocyte Esterase (Negative) Urine Glucose (Negative) mg/dL HPI <Nish Polo MD - Last Filed: 11/17/21 06:53> General Mode of arrival: ambulatory . Date/Time Provider Initiated Documentation: 11/17/21 05:08 . Limitations to Documentation: no limitations . Information obtained by: patient . History of Present Illness 81 year old F pr esents to the emergency department with the chief complaint of feel off, described as moderate, Patient started experiencing this unknown (woke up with symptoms) and it has been constant. improves with No relieving factors improve symptom(s), No exacerbating factors reported . Patient did receive the following treatments prior to arrival, none Related Data Home Medications Medication Instructions Recorded Confirmed cholecalciferol (vitamin D3) 25 3,000 unit PO HS #180 tab 01/01/17 11/17/21 mcg (1,000 unit) capsule pantoprazole 20 mg tablet,delayed 20 mg PO DAILY 08/20/19 11/17/21 release aspirin 81 mg tablet,delayed 81 mg PO DAILY tab-cap 04/06/20 11/17/21 release (Aspir-) ibuprofen 200 mg tablet 200 mg PO BID PRN tab 05/25/20 11/17/21 atorvastatin 20 mg tablet 20 mg PO DAILY 11/17/21 11/17/21 ciprofloxacin HCl 500 mg tablet 500 mg PO BID 7 Days #14 tab 11/17/21 fluoxetine 10 mg capsule 10 mg PO DAILY 11/17/21 11/17/21 meclizine 25 mg tablet 25 mg PO TID PRN #30 tab 11/17/21 metronidazole 500 mg tablet 500 mg PO TID 7 Days #21 tab 11/17/21 Previous Rx's Medication Instructions Recorded ciprofloxacin HCl 500 mg tablet 500 mg PO BID 7 Days #14 tab 11/17/21 meclizine 25 mg tablet 25 mg PO TID PRN #30 tab 11/17/21 metronidazole 500 mg tablet 500 mg PO TID 7 Days #21 tab 11/17/21 Allergies Allergy/AdvReac Type Severity Reaction Status Date / Time pravastatin Allergy Intermediate Verified 11/17/21 05:27 General Stated Complaint: Dizzy/Sync ROSIE: 2 Review of Systems <Nish Polo MD - Last Filed: 11/17/21 06:53> All systems reviewed & are unremarkable except as noted in HPI and below Constitutional Constitutional: Denies chills, Denies fever(s) and Denies weakness Eyes Eyes: Denies loss of vision ENT Ears, Nose, Mouth, and Throat: Denies change in voice Cardiovascular Cardiovascular: Denies chest pain and Denies dyspnea Respiratory Respiratory: Denies cough and Denies dyspnea Gastrointestinal Gastrointestinal: Denies abdominal pain, Denies nausea and Denies vomiting Genitourinary Genitourinary: Denies dysuria Integumentary/Breasts Skin/Breast: Denies rash Neurologic Neurologic: Denies loss of vision and Denies weakness PFS <Nish Polo MD - Last Filed: 11/17/21 06:53> All Active Problems (Updated 11/17/21 @ 10:06 by Mirna Cheney DO) Dizziness (Acute) Diverticulitis (Chronic) History of total left knee replacement (TKR) (Acute 03/01/20) Arthritis of left glenohumeral joint (Acute) Primary osteoarthritis of right knee (Chronic) Most recent injection: 10/28/2019 Primary osteoarthritis of right hip (Acute) Medical History (Updated 11/17/21 @ 10:06 by Mirna Cheney DO) Anxiety 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 Extends beyond the introitus with Valsalva. 07/04/2017. short stemmed Gellhorn 2 3/4 (70mm) pessary. 07/10/2017 #4 donut pessary Chest discomfort Cystocele with rectocele Depression Onset after daughter's at age 50. Duodenal ulcer Elevated antinuclear antibody (SERGEY) level Esophageal spasm Rx with amlodipine. Fatigue GERD (gastroesophageal reflux disease) Grief at loss of child Hip pain, right Hyperlipidemia Knee pain, bilateral Lactose intolerance Leg cramps Macular degeneration Multinodular goiter Myalgia Neck muscle spasm Primary osteoarthritis of left knee Most recent injection: 10/28/2019 Vitamin B12 deficiency Vitamin D deficiency Surgical History Colonoscopy - IV Sedation EGD - IV Sedation Extraction of cataract Ganglion Cyst, left wrist Left Breast Cyst Removal Family History Daughter Mental disorder Depression suicide age 50. Other Uterine cancer Social History Smoking/Tobacco Use Status: Former Tobacco Use Smoking risk assessment performed?: Yes Alcohol Intake: never Drug use: Never Substance use type: does not use Household members: spouse Housing: house Number of Children: 4 current occupation: retired Current gender identity: female What is your relationship status?: Panel score (0-1 are the most socially isolated patients): 1 What type of physical activity do you participate in: aerobic, regular exercise, weight lifting and additional Details: PT Duration: 30-45 minutes/day Frequency: 3-4 times per week Do you feel safe at home: Yes Do you feel safe in your relationship?: Yes Exam <Nish Polo MD - Last Filed: 11/17/21 06:53> Const General: no acute distress Orientation: alert HENOK Head: normal to inspection Ears: external ears normal General nose exam: external nose normal Mouth: moist mucous membranes Eyes General: appearance normal, both eyes and all related structures Neck Neck: normal visual inspection Resp Effort & Inspection: normal respiratory effort and able to speak in complete sentences Cardio Rate: regular rate Skin General skin exam: no rashes or lesions noted Neuro General: patient alert and patient oriented x3 Extrem General: normal to inspection Psych Mental Status: mental status grossly normal Course <Nish Polo MD - Last Filed: 11/17/21 06:53> Vital Signs Vital signs: Vital Signs Temperature 36.7 C 11/17/21 05:12 Pulse 68 11/17/21 05:12 Respiratory Rate 20 11/17/21 05:12 Blood Pressure 171/74 H 11/17/21 05:12 Pulse Oximetry 98 11/17/21 05:12 Temperature 36.7 C 11/17/21 05:12 Temperature Source Temporal Artery Scan 11/17/21 05:12 Pulse 68 11/17/21 05:12 Respiratory Rate 20 11/17/21 05:12 Blood Pressure 171/74 H 11/17/21 05:12 Blood Pressure Position Supine 11/17/21 05:12 Pulse Oximetry 98 11/17/21 05:12 Oxygen Delivery Method Room Air 11/17/21 05:12 Oxygen Flow Rate 0 11/17/21 05:12 Pain Level 0 11/17/21 05:12 Sign Out <Nish Polo MD - Last Filed: 11/17/21 06:53> Sign Out Data: Sign Out Comment: initial complaint was dizziness/lightheadedness that improved with meclizine. Now states she fell a week ago and has right lower back pain, pending ct imaging and delta troponin, if negative and continues to be able to ambulate plan for d/c and pcp follow up Last updated by Nish Polo MD at 11/17/21 06:55
--- NOTE | 2021-11-17 05:30 | DI.CT_ITS ---
Exam(s) CT BRAIN NECK CTA EXAM: CT BRAIN NECK CTA CLINICAL HISTORY: diziness. TECHNIQUE: Imaging Protocol: Axial CT angiography was performed with multi-slice acquisition and mu lti-planar and/or 3D reconstructions. CONTRAST MATERIAL: Intravenous: Omnipaque 350 Contrast volume:84 mL COMPARISON: CT HEAD WITHOUT CONTRAST from 08/01/2011 FINDINGS: CT Head W/O and W: Ventricles and Extra axial spaces: Normal in size and morphology for the patient's age. Hemorrhage: None. Cerebral parenchyma: No evidence of an acute territorial infarct. There are areas of decreased atten uation in the white matter most consistent with chronic microvascular ischemic disease. Midline shift: None. Brainstem/Cerebellum: Normal. Calvarium: Normal. Visualized Paranasal sinuses/Mastoids: Clear. Soft Tissues: Unremarkable. Enhancement: Unremarkable. CTA Neck W: Common Carotid: Right: No dissection, occlusion or significant stenosis. Left: No dissection, occlusion or significant stenosis. External Carotid: Right: No occlusion or significant stenosis. Left: No occlusion or significant stenosis. Internal Carotid: Right: No dissection, occlusion or significant stenosis. Left: No dissection, occlusion or significant stenosis. Atherosclerosis at the origin of the interna l carotid artery. Vertebral Artery: Right: The right vertebral artery is severely diminutive after its intracranial entrance. It does n ot appear to significantly supply the basilar artery. Left: Mildly diminutive following its intracranial entrance. Lung Apices: Normal. Bones: Within normal limits for the patient's age. Soft Tissues: Normal. Thyroid gland: Multinodular thyroid gland. There is a 2 cm nodule in the left lobe of the thyroid gl and. Nonemergent thyroid ultrasound is recommended. CTA Brain W: Internal Carotid Arteries: Normal. Anterior Cerebral Arteries: Right: No aneurysm, occlusion or significant stenosis. Left: No aneurysm, occlusion or significant stenosis. Middle Cerebral Arteries: Right: No aneurysm, occlusion or significant stenosis. Left: No aneurysm, occlusion or significant stenosis. Posterior Cerebral Arteries: Right: No aneurysm, occlusion or significant stenosis. Predominantly supplied by the posterior commu nicating artery. This is a normal variant. Left: No aneurysm, occlusion or significant stenosis. Predominantly supplied by the posterior commun icating artery. This is a normal variant. Vertebral Arteries: Right: Diminutive following the entrance into the intracranial space. Left: Mildly diminutive following the entrance into the intracranial space. Basilar Artery: No aneurysm, occlusion or significant stenosis. IMPRESSION: 1. No large vessel occlusion or significant stenosis on the CT angiography of the head. 2. No acute intracranial process. 3. Diminutive vertebral arteries upon entrance into the intracranial base, right greater than left. 4. Multinodular thyroid gland. Nonemergent thyroid ultrasound is recommended for further evaluation. 5. No carotid stenosis or occlusion. RADIATION DOSE DELIVERED: 2,076.2mGy.cm Total DLP DATA REPOSITORY: All CT scans at this facility are submitted to the National Radiology Data Registry (NRDR) Dose Index Registry (DIR) with the [employer] (ACR). RADIATION OPTIMIZATION: All CT scans at this facility use at least one of these dose optimization te chniques: automated exposure control; mA and/or kV adjustment per patient size (includes targeted exa ms where dose is matched to clinical indication); or iterative reconstruction.
[2021-11-17] MEDS: Normal Saline 1,000 ML 1000 ML IV (05:40)
[2021-11-17] MEDS: Meclizine 25 MG TAB PO (05:40)
[2021-11-17] MEDS: Omnipaque 350 MG/ML 100 ML BTL IJ (05:51)
[2021-11-17] MEDS: Normal Saline Flush 10 ML SYR IVP (05:54)
[2021-11-17 06:01] LABS: Abs Immature Grans 0.01 10^3/uL (0.0-0.06); Absolute Basophil Count 0.03 10^3/uL (0.0-0.2); Absolute Lymphocyte Count 1.92 10^3/uL (1.2-3.4); Absolute Monocyte Count 0.39 10^3/uL (0.1-0.8); Absolute Neutrophil Count 2.46 10^3/uL (1.2-6.7); Basophils % 0.6; HCT 42.7 % (36.0-46.0); HGB 13.8 g/dL (11.2-15.7); Immature Grans % 0.2; Lymphocytes % 39.1; MCH 29.5 pg (27.0-33.0); MCHC 32.3 % (32.0-36.0); MCV 91.2 fL (80-95); MPV 8.7 fL (8.0-11.0); Monocytes % 7.9; Neutrophils % 50.2; Nucleated RBC 0 %; Platelet Count 276 10^3/uL (130-400); RBC 4.68 10^6/uL (3.93-5.22); RDW 12.2 % (11.7-14.6); RDW-SD 40.6 fL; WBC 4.91 10^3/uL (4.4-10.8)
[2021-11-17 06:09] LABS: Bilirubin Negative (Negative); Blood Negative (Negative); Clarity Clear (Clear); Glucose Negative (Negative); Ketones Negative (Negative); Leukocyte Esterase Negative (Negative); Nitrite Negative (Negative); Specific Gravity 1.025 (1.005-1.025); Urobilinogen 0.2 EU/dL (Up TO 0.2)
[2021-11-17 06:27] LABS: ALT 37 U/L (14-59); AST 20 U/L (15-37); Albumin 3.7 g/dL (3.4-5.0); Alkaline Phosphatase 88 U/L (46-116); Anion Gap 9.5 mmol/L (3-11); BUN 12 mg/dL (7-18); Bilirubin, Total 0.4 mg/dL (0.2-1.0); CO2 23.5 mmol/L (21.0-32.0); CREATININE 0.6 mg/dL (0.55-1.02); Calcium 9.3 mg/dL (8.5-10.1); Chloride 105 mmol/L (98-107); Glucose 101 mg/dL (74-106); Magnesium 1.9 mg/dL (1.8-2.4); Potassium 3.5 mmol/L (3.5-5.1); Sodium 138 mmol/L (136-145); Total Protein 7.2 g/dL (6.4-8.2); Troponin I < 50 ng/L (<or=60)
--- NOTE | 2021-11-17 06:30 | DI.VRAD_ITS ---
PROCEDURE INFORMATION: Exam: CT Head Without Contrast Exam date and time: 11/17/2021 5:36 AM Age: 81 years old Clinical indication: Dizziness and giddiness TECHNIQUE: Imaging protocol: Computed tomography of the head without contrast. Other technique: STROKE PROTOCOL was implemented. COMPARISON: THYROID 09/06/2021 7:05 AM FINDINGS: Brain: No acute hemorrhage identified. No large territorial areas of hypoattenuation concerning for ischemic infarct identified. No intracranial mass effect. Cerebral ventricles: The ventricles are within normal limits. Paranasal sinuses: The visualized sinuses are unremarkable. Mastoid air cells: The visualized mastoid air cells are well aerated. Bones/joints: The osseous structures are intact. Soft tissues: Unremarkable. IMPRESSION: No acute intracranial abnormality. ASSESSMENT: ASPECTS ([facility] Stroke Program Early CT Score) is 10. PROCEDURE INFORMATION: Exam: CT Angiography Head With Contrast, Arteriography Exam date and time: 11/17/2021 5:36 AM Age: 81 years old Clinical indication: Dizziness and giddiness TECHNIQUE: Imaging protocol: Computed tomography angiography of the head with contrast. Exam focused on the arteries. 3D rendering (Not supervised by radiologist): MIP and/or 3D reconstructed images were created by the technologist. Radiation optimization: All CT scans at this facility use at least one of these dose optimization techniques: automated exposure control; mA and/or kV adjustment per patient size (includes targeted exams where dose is matched to clinical indication); or iterative reconstruction. Contrast material: OMNIPAQUE 350; Contrast volume: 85 ml; Contrast route: INTRAVENOUS (IV); COMPARISON: THYROID 09/06/2021 7:05 AM FINDINGS: ANTERIOR CIRCULATION: Right internal carotid artery: Unremarkable. Intracranial segment is patent with no significant stenosis. No aneurysm. Right middle cerebral artery: Unremarkable. No occlusion or significant stenosis. No aneurysm. Right anterior cerebral artery: Unremarkable. No occlusion or significant stenosis. No aneurysm. Left internal carotid artery: Unremarkable. Intracranial segment is patent with no significant stenosis. No aneurysm. Left middle cerebral artery: Unremarkable. No occlusion or significant stenosis. No aneurysm. Left anterior cerebral artery: Unremarkable. No occlusion or significant stenosis. No aneurysm. POSTERIOR CIRCULATION: Right vertebral artery: The right vertebral artery becomes severely diminutive at the intracranial entrance and does not significantly supply the basilar artery. Left vertebral artery: Mildly diminutive post the intracranial entrance. Basilar artery: Unremarkable. No occlusion or significant stenosis. No aneurysm. Right posterior cerebral artery: Predominately supplied by the right posterior communicating artery. Left posterior cerebral artery: Predominantly supplied by the left posterior communicating artery. Brain: No definite mass, mass effect, or midline shift. Cerebral ventricles: No ventriculomegaly. Bones/joints: Unremarkable. No acute fracture. Soft tissues: Unremarkable. IMPRESSION: No significant intracranial arterial occlusion identified. PROCEDURE INFORMATION: Exam: CT Angiography Neck With Contrast Exam date and time: 11/17/2021 5:36 AM Age: 81 years old Clinical indication: Dizziness and giddiness TECHNIQUE: Imaging protocol: Computed tomography angiography of the neck with contrast. 3D rendering (Not supervised by radiologist): MIP and/or 3D reconstructed images were created by the technologist. Radiation optimization: All CT scans at this facility use at least one of these dose optimization techniques: automated exposure control; mA and/or kV adjustment per patient size (includes targeted exams where dose is matched to clinical indication); or iterative reconstruction. Contrast material: OMNIPAQUE 350; Contrast volume: 85 ml; Contrast route: INTRAVENOUS (IV); COMPARISON: US THYROID 09/06/2021 7:05 AM FINDINGS: Right common carotid artery: No stenosis. No dissection or occlusion. Right internal carotid artery: No stenosis of the extracranial segment. No dissection or occlusion. Right external carotid artery: No occlusion or stenosis of the origin. Left common carotid artery: No stenosis. No dissection or occlusion. Left internal carotid artery: No stenosis of the extracranial segment. No dissection or occlusion. Left external carotid artery: No occlusion or stenosis of the origin. Right vertebral artery: The right vertebral artery becomes severely diminutive at the intracranial entrance and does not significantly supply the basilar artery. Left vertebral artery: Mildly diminutive post the intracranial entrance. Thyroid: Heterogeneity of the left thyroid lobe with multiple likely nodules the largest of which measures up to approximately 1.5 cm. Thick calcification noted in the left thyroid. Thyroid isthmus nodule noted measuring up to approximately in 1.0 cm. Right thyroid nodule measuring up to 7 mm. Soft tissues: Normal. No significant soft tissue swelling. Bones/joints: Mild multilevel degenerative changes in the cervical spine. IMPRESSION: 1. No carotid stenosis or occlusion identified. 2. The vertebral arteries become diminutive after the intracranial entrance. Bilateral posterior cerebral arteries are predominantly supplied by prominent posterior communicating arteries. 3. Multinodular thyroid. REFERENCES: NASCET CRITERIA. The degree of internal carotid artery stenosis is based on NASCET criteria. Normal is no stenosis. Mild is less than 50% stenosis. Moderate is 50-69% stenosis. Severe is 70% to 99% stenosis. Total occlusion is no detectable patent lumen. Dictated and Authenticated by: Neno Gonzalez MD. Ordering:JOZEF Mock MD
--- NOTE | 2021-11-17 06:45 | DI.CT_ITS ---
Exam(s) CT RENAL COLIC WO EXAM: CT RENAL COLIC WO CLINICAL HISTORY: right lower back pain. TECHNIQUE: Imaging Protocol: Axial computed tomography images with coronal and sagittal reformatted images were created and reviewed. COMPARISON: CT UPPER ABD W/WO CONTRAST(P) from 01/20/[address] BRAIN NECK CTA from 11/17/2021 FINDINGS: ABDOMEN: Lung Bases: Normal where visualized. Small hiatal hernia. Liver: Normal density. No measurable mass. Gallbladder and biliary tract: No radiodense calculus or biliary ductal dilation. Pancreas: Normal density, no abnormal calcifications or inflammatory process. Spleen: Normal. Kidneys: Normal size, contour and axis.No radiodense stones or obstructive uropathy. Bilateral renal cysts. Contrast is in the renal collecting system secondary to the patient's CT angiography of the h ead performed earlier in the day. Adrenal glands: No mass is seen. Lymph nodes: Within normal limits. Abdominal Aorta: Abdominal portion non-dilated. Atherosclerosis. PELVIS: Bladder:Symmetric distention, no gross wall thickening. Bowel: No obstruction or bowel wall thickening. Appendix is unremarkable. Diverticulosis of the colo n. V RAD suggested mild stranding in the left lower quadrant adjacent to a loop of colon and raising the question of mild diverticulitis. Peritoneal cavity: No ascites, collection or mesenteric inflammatory response. No free air. Reproductive organs: Within normal limits. Bones: Within normal limits. There is a left convex lumbar scoliosis. Multilevel degenerative change s are seen in the lumbar spine. Soft Tissues: Within normal limits. IMPRESSION: 1. No evidence of nephrolithiasis or hydronephrosis. 2. No acute fracture or subluxation in the lumbar spine. Multilevel degenerative changes in the lumb ar spine. 3. Diverticulosis of the colon. Question of early non complicated acute diverticulitis. Please yumi elate clinically. RADIATION DOSE DELIVERED: 1,105.37mGy.cm Total DLP DATA REPOSITORY: All CT scans at this facility are submitted to the National Radiology Data Registry (NRDR) Dose Index Registry (DIR) with the [employer] (ACR). RADIATION OPTIMIZATION: All CT scans at this facility use at least one of these dose optimization te chniques: automated exposure control; mA and/or kV adjustment per patient size (includes targeted exa ms where dose is matched to clinical indication); or iterative reconstruction.
--- NOTE | 2021-11-17 06:48 | NUR.NOTE ---
Nursing Note: Pt now c/o lower abd pain. Dr. Polo notified.
--- NOTE | 2021-11-17 06:50 | DI.CT_ITS ---
Exam(s) CT LUMBAR SPINE RECONS EXAM: CT LUMBAR SPINE RECONS CLINICAL HISTORY: please do reconstructions from ct renal colic. TECHNIQUE: Imaging Protocol: Axial computed tomography images with coronal and sagittal reformatted images were created and reviewed COMPARISON: MR MRI - LUMBAR SPINE WO CONTRAST from 02/05/2017 CR XR lumbar spine complete from 06/02/2019 CR XR hip RT complete AP pelvis from 06/02/[address] RENAL COLIC WO from 11/17/[address] BRAIN NECK CTA from 11/17/2021 FINDINGS: Bones: There are no fractures, listhesis, nor pars defects. Age-related osteopenia and there appear s to be a probable hemangioma in the L4 vertebral body. No obvious lytic osseous lesions evident.The re is degenerative scoliosis convex left. Epicenter is at asymmetric narrowing of L3-4 disc space wh ich is significantly more narrowed on the right than the left side. Some degenerative changes eviden t in the facet joints of the lower 3 levels. There is a peripherally sclerotic bone lesion in on the iliac side of the right sacroiliac joint, thi s measuring 1.4 x 1.5 cm. PARASPINAL SOFT TISSUES: See separate CT scan abdomen pelvis report IMPRESSION: 1. Chronic degenerative disc disease, degenerative scoliosis. Facet arthropathy lower 3 levels. 2. 14 x 15 millimeter nonexpansile peripherally sclerotic bone lesion in the right iliac bone. This has benign appearance and is evident on pelvic plain films performed 06/02/2019. also unchanged from lumbar spine MRI performed February 2017. Therefore most probably benign. RADIATION DOSE DELIVERED: 1,105.37mGy.cm Total DLP DATA REPOSITORY: All CT scans at this facility are submitted to the National Radiology Data Registry (NRDR) Dose Index Registry (DIR) with the [employer] (ACR). RADIATION OPTIMIZATION: All CT scans at this facility use at least one of these dose optimization te chniques: automated exposure control; mA and/or kV adjustment per patient size (includes targeted exa ms where dose is matched to clinical indication); or iterative reconstruction.
--- NOTE | 2021-11-17 06:55 | NUR.NOTE ---
Nursing Note: Report given to Karina SAN
--- NOTE | 2021-11-17 08:35 | DI.VRAD_ITS ---
PROCEDURE INFORMATION: Exam: CT Abdomen And Pelvis Without Contrast Exam date and time: 11/17/2021 6:51 AM Age: 81 years old Clinical indication: Abdominal pain TECHNIQUE: Imaging protocol: Computed tomography of the abdomen and pelvis without contrast. COMPARISON: CR XR hip RT complete AP pelvis 06/02/2019 1:28 PM FINDINGS: Lungs: Lung bases are clear. Heart: Imaged heart is normal. Diaphragm: Small hiatal hernia. Liver: Normal. No mass. Gallbladder and bile ducts: Normal. No calcified stones. No ductal dilation. Pancreas: Normal. No ductal dilation. Spleen: Normal. No splenomegaly. Adrenal glands: Normal. No mass. Kidneys and ureters: There is contrast within the renal collecting systems and urinary bladder, likely excreted contrast from the CTA performed earlier today. No definite urinary stones. No evidence of hydronephrosis or hydroureter. There is a 2.3 cm simple cyst of the left midpole. Stomach and bowel: Colonic diverticulosis. There is very mild pericolonic inflammatory stranding in the left lower quadrant, possibly associated with some mild wall thickening . No pericolonic fluid collection. Small bowel is normal in caliber without wall thickening. Appendix: Normal appendix. Intraperitoneal space: Unremarkable. No free air. No significant fluid collection. Vasculature: Atherosclerosis of the abdominal aorta without aneurysm. Lymph nodes: Unremarkable. No enlarged lymph nodes. Urinary bladder: Intraluminal contrast. No focal wall thickening or mass. Reproductive: Unremarkable as visualized. Bones/joints: Degenerative changes of the spine, sacroiliac joints, and hips. Soft tissues: Small fat containing periumbilical hernia. IMPRESSION: 1. No evidence of urolithiasis or obstructing urinary stone. 2. Likely early uncomplicated diverticulitis of the sigmoid colon in the left lower quadrant. Dictated and Authenticated by: Nimo Arreola MD. Ordering:JOZEF Mock MD
[2021-11-17 09:03] LABS: Troponin I < 50 ng/L (<or=60)
[2021-11-17] MEDS: Ciprofloxacin 500 MG TAB PO (10:10)
[2021-11-17] MEDS: metroNIDAZOLE 500 MG TAB PO (10:10)
--- NOTE | 2021-11-17 10:17 | NUR.NOTE ---
Faxed referral to [facility] for a follow up in 1-[address] Cheney for diverticulitis and the patient will need a colonoscopy.
== END 2021-11-17 10:18 | disposition home or self-care (01) ==
PROVIDERS: Emergency Medicine; Emergency Provider Physician Assistant; PCP Nurse Practitioner Family
DX: R42 Dizziness and giddiness (principal); K57.92 Diverticulitis of intestine, part unspecified, without perforation or abscess without bleeding; M54.50 Low back pain, unspecified; M25.551 Pain in right hip
CPT/HCPCS: 36415; 70496; 70498; 80053; 93005; 96360; 96361; 99285; 74176; 81003; 83735; 84484; 85025; 93010; 99284; J3490

== ENCOUNTER → 2021-12-18 12:50 | Outpatient (BNVA) | payer MEDICARE, SELFPAY | PROVIDERS: PCP Nurse Practitioner Family; Referring Provider Nurse Practitioner Family; Visit Provider Surgery | DX: K57.90 Diverticulosis of intestine, part unspecified, without perforation or abscess without bleeding (principal); D12.6 Benign neoplasm of colon, unspecified | CPT/HCPCS: 99203; 99213 ==

== ENCOUNTER 2022-07-25 11:50 | Outpatient (REF) | payer MEDICARE, SELFPAY ==
[2022-07-25 15:49] LABS: ALT 33 U/L (14-59); AST 25 U/L (15-37); Albumin 4.2 g/dL (3.4-5.0); Alkaline Phosphatase 73 U/L (46-116); Anion Gap 10.1 mmol/L (3-11); BUN 11 mg/dL (7-18); Bilirubin, Total 0.5 mg/dL (0.2-1.0); CO2 27.9 mmol/L (21.0-32.0); CREATININE 0.6 mg/dL (0.55-1.02); Calcium 9.7 mg/dL (8.5-10.1); Chloride 104 mmol/L (98-107); Estimated GFR 91.25 (mL/min/1.73m2); FREE T4 0.96 ng/dL (0.76-1.46); Glucose 88 mg/dL (74-106); Magnesium 2.2 mg/dL (1.8-2.4); Potassium 4.3 mmol/L (3.5-5.1); Sodium 142 mmol/L (136-145); TSH 2.79 uIU/mL (0.36-3.74); Total Protein 7.9 g/dL (6.4-8.2)
[2022-07-25 15:57] LABS: Vitamin D 25 Total 51.2 ng/mL (30-100)
[2022-07-25 16:37] LABS: Calculated LDL 115 mg/dL (<100); Cholesterol 198 mg/dL (<200); HDL Cholesterol 52 mg/dL (40-60); Triglyceride 157 mg/dL (<150); Vitamin B12 445 pg/mL (193-986)
[2022-07-25 22:11] LABS: T3,Free 3.1 pg/mL (2.8-5.3)
== END 2022-07-25 11:51 | disposition home or self-care (01) ==
LOC: NCHCN 11:50
PROVIDERS: PCP Nurse Practitioner Family; Visit Provider Nurse Practitioner Family
DX: E53.8 Deficiency of other specified B group vitamins (principal); E83.52 Hypercalcemia; M81.0 Age-related osteoporosis without current pathological fracture; E55.9 Vitamin D deficiency, unspecified; E04.2 Nontoxic multinodular goiter; F41.8 Other specified anxiety disorders; E21.5 Disorder of parathyroid gland, unspecified
CPT/HCPCS: 80053; 80061; 82306; 82607; 83735; 84439; 84443; 84481

== ENCOUNTER 2022-10-14 16:07 | Outpatient (REF) | payer MEDICARE, SELFPAY | END 2022-10-14 16:08 | disposition home or self-care (01) | LOC: NCHCN 16:07 | PROVIDERS: PCP Nurse Practitioner Family; Visit Provider Family Medicine | DX: R35.0 Frequency of micturition (principal) | CPT/HCPCS: 87086 ==

== ENCOUNTER 2023-07-17 13:28 | Outpatient (REF) | payer MEDICARE, SELFPAY ==
[2023-07-17 16:17] LABS: Abs Immature Grans 0.01 10^3/uL (0.0-0.06); Absolute Basophil Count 0.05 10^3/uL (0.0-0.2); Absolute Eosinophil Count 0.03 10^3/uL (0.0-0.7); Absolute Lymphocyte Count 1.48 10^3/uL (1.2-3.4); Absolute Neutrophil Count 3.41 10^3/uL (1.2-6.7); Basophils % 0.9; Eosinophils % 0.6; HCT 47.1 % (36.0-46.0); HGB 15.4 g/dL (11.2-15.7); Immature Grans % 0.2; Lymphocytes % 27.5; MCH 28.9 pg (27.0-33.0); MCHC 32.7 % (32.0-36.0); MCV 88 fL (80-95); MPV 8.9 fL (8.0-11.0); Monocytes % 7.4; Neutrophils % 63.4; Platelet Count 348 10^3/uL (130-400); RBC 5.33 10^6/uL (3.93-5.22); RDW 12.6 % (11.7-14.6); RDW-SD 40.6 fL; WBC 5.38 10^3/uL (4.4-10.8)
[2023-07-17 16:43] LABS: ALT 22 U/L (14-59); AST 24 U/L (15-37); Alkaline Phosphatase 65 U/L (46-116); Anion Gap 11.7 mmol/L (3-11); BUN 9 mg/dL (7-18); Bilirubin, Total 0.3 mg/dL (0.2-1.0); C-Reactive Protein 0.25 mg/dL (0.0-0.3); CO2 24.3 mmol/L (21.0-32.0); CREATININE 0.5 mg/dL (0.55-1.02); Calcium 10.2 mg/dL (8.5-10.1); Chloride 104 mmol/L (98-107); Estimated GFR 94.76 (mL/min/1.73m2); FREE T4 0.95 ng/dL (0.76-1.46); Glucose 97 mg/dL (74-106); Magnesium 2.3 mg/dL (1.8-2.4); Potassium 4.3 mmol/L (3.5-5.1); Sodium 140 mmol/L (136-145); TSH 2.94 uIU/mL (0.36-3.74); Total Protein 7.6 g/dL (6.4-8.2)
[2023-07-17 17:37] LABS: Ferritin 245 ng/mL (8-252); Vitamin B12 1173 pg/mL (193-986)
[2023-07-17 17:46] LABS: Vitamin D 25 Total 51.7 ng/mL (30-100)
[2023-07-17 17:59] LABS: Iron 104 ug/dL (50-170); Total Iron Binding Capacity 297 ug/dL (250-450); Transferrin Sat 35 % (15-50)
[2023-07-17 22:02] LABS: T3,Free 3.4 pg/mL (2.8-5.3)
[2023-07-17 23:00] LABS: Parathyroid Hormone,Intact 31 pg/mL (19-88)
[2023-07-18 13:47] LABS: ANA Interpretation Negative (Negative)
[2023-07-21 09:35] LABS: ESR (LRH) 23 mm/hr
== END 2023-07-17 13:29 | disposition home or self-care (01) ==
LOC: NCHCN 13:28
PROVIDERS: PCP Nurse Practitioner Family; Visit Provider Nurse Practitioner Family
DX: C73 Malignant neoplasm of thyroid gland (principal); R20.2 Paresthesia of skin; M81.0 Age-related osteoporosis without current pathological fracture; E55.9 Vitamin D deficiency, unspecified; E04.2 Nontoxic multinodular goiter
CPT/HCPCS: 80053; 82306; 85652; 82607; 82728; 83540; 83550; 83735; 83970; 84439; 84443; 84481; 85025; 86038; 86140

== ENCOUNTER 2023-09-23 18:38 | Outpatient (REF) | payer MEDICARE, SELFPAY ==
[2023-09-23 14:35] LABS: HCT 44.2 % (36.0-46.0); HGB 14.5 g/dL (11.2-15.7); MCH 29.5 pg (27.0-33.0); MCHC 32.8 % (32.0-36.0); MCV 90 fL (80-95); MPV 8.6 fL (8.0-11.0); Platelet Count 304 10^3/uL (130-400); RBC 4.92 10^6/uL (3.93-5.22); RDW 12.5 % (11.7-14.6); RDW-SD 41.4 fL; WBC 4.59 10^3/uL (4.4-10.8)
== END 2023-09-23 18:39 | disposition home or self-care (01) ==
LOC: NCHCN 18:38
PROVIDERS: PCP Nurse Practitioner Family; Visit Provider Nurse Practitioner Family
DX: D75.1 Secondary polycythemia (principal); R30.0 Dysuria
CPT/HCPCS: 85027; 87086

== ENCOUNTER 2024-02-08 10:47 | Emergency (ER) | payer MEDICARE, SELFPAY ==
[2024-02-08] VITALS (32 sets, daily range): BP systolic 101–164; BP diastolic 60–107; PULSE 61–98; RESP 12–20; TEMP 37; O2SAT 92–100
--- NOTE | 2024-02-08 10:45 | RT.EKG_ITS ---
APPROVED REPORT Exam: Resting ECG Reason for Exam: Chest Pain Patient Location: E HR:74 bpm ECG Measurements Heart Rate 74 AXIS MO 159 P 63 QRSd 96 QRS -51 QT 382 T 65 QTc 425 Conclusion Sinus rhythm...normal P axis, V-rate 60- 99 Left anterior fascicular block...axis(240,-40), init forces inf
[2024-02-08 11:28] LABS: Abs Immature Grans 0.02 10^3/uL (0.0-0.06); Absolute Basophil Count 0.05 10^3/uL (0.0-0.2); Absolute Eosinophil Count 0.07 10^3/uL (0.0-0.7); Absolute Lymphocyte Count 1.68 10^3/uL (1.2-3.4); Absolute Monocyte Count 0.41 10^3/uL (0.1-0.8); Absolute Neutrophil Count 3.43 10^3/uL (1.2-6.7); Basophils % 0.9 %; Eosinophils % 1.2 %; HCT 44.4 % (36.0-46.0); HGB 14.6 g/dL (11.2-15.7); Immature Grans % 0.4 %; Lymphocytes % 29.7 %; MCH 29.6 pg (27.0-33.0); MCHC 32.9 % (32.0-36.0); MCV 90 fL (80-95); MPV 8.8 fL (8.0-11.0); Monocytes % 7.2 %; Neutrophils % 60.6 %; Platelet Count 274 10^3/uL (130-400); RBC 4.94 10^6/uL (3.93-5.22); RDW 12.3 % (11.7-14.6); RDW-SD 40.2 fL; WBC 5.66 10^3/uL (4.4-10.8)
[2024-02-08] MEDS: Normal Saline 500 ML IV (11:33)
[2024-02-08 11:52] LABS: ALT 24 U/L (14-59); AST 20 U/L (15-37); Albumin 3.9 g/dL (3.4-5.0); Alkaline Phosphatase 73 U/L (46-116); Anion Gap 12.2 mmol/L (3-11); BUN 8 mg/dL (7-18); Bilirubin, Total 0.3 mg/dL (0.2-1.0); CO2 25.8 mmol/L (21.0-32.0); CREATININE 0.7 mg/dL (0.55-1.02); Chloride 105 mmol/L (98-107); Estimated GFR 86.83 (mL/min/1.73m2); Glucose 112 mg/dL (74-106); Potassium 3.8 mmol/L (3.5-5.1); Sodium 143 mmol/L (136-145); TSH (W/Ref FT4) 2.22 uIU/mL (0.36-3.74); Total Protein 7.5 g/dL (6.4-8.2)
[2024-02-08 11:58] LABS: Bilirubin Negative (Negative); Blood Negative (Negative); Clarity Clear (Clear); Glucose Negative (Negative); Ketones Negative (Negative); Leukocyte Esterase Moderate (Negative); Nitrite Positive (Negative); Urobilinogen 0.2 mg/dL (Up to 0.2)
[2024-02-08 11:59] LABS: D-Dimer 773 ng/mlFEU (<500)
--- NOTE | 2024-02-08 12:00 | DI.CT_ITS ---
Exam(s) CT CHEST PE CTA EXAM: CT CHEST PE CTA CLINICAL HISTORY: chest pain and shortness. TECHNIQUE: Imaging Protocol: Axial CT angiography was performed with multi-slice acquisition and mu lti-planar reconstructions as well as axial, coronal and sagittal MIP reconstructions. CONTRAST MATERIAL: Intravenous: Omnipaque 350 Contrast volume:70 ml COMPARISON: CT CT RENAL COLIC WO from 11/17/[address] BRAIN NECK CTA from 11/17/2021 FINDINGS: Pulmonary Arteries: No evidence of filling defect to suggest pulmonary emboli. Tracheobronchial tree: No mucous plugging. Mediastinum and Akiko: No dominant adenopathy or fluid collection. Pulmonary parenchyma: No consolidation or dominant measurable mass. Expiratory changes. Tiny nodule right upper lobe, unchanged from 2021. No follow-up recommended. Pleura: No effusion or pneumothorax. Heart: The heart is not dilated. No coronary artery calcifications are seen. Aorta: Thoracic aorta non-dilated. No dissection. Upper abdomen: No acute findings. Bones: Advanced degenerative changes. No compression fractures. Tubes, Catheters, and Lines: None Soft tissues: Unremarkable. IMPRESSION: No evidence of pulmonary embolism or other acute abnormality.. RADIATION DOSE DELIVERED: Total DLP DATA REPOSITORY: All CT scans at this facility are submitted to the National Radiology Data Registry (NRDR) Dose Index Registry (DIR) with the [employer] (ACR). RADIATION OPTIMIZATION: All CT scans at this facility use at least one of these dose optimization te chniques: automated exposure control; mA and/or kV adjustment per patient size (includes targeted exa ms where dose is matched to clinical indication); or iterative reconstruction.
[2024-02-08 12:05] LABS: Bacteria Many HPF (Negative); C & S Indicated? Yes; Casts Negative LPF (Negative); Crystals Negative HPF (Negative); Epithelial Cells Few HPF (Negative); Mucus Negative (Negative); RBC 0-2 HPF (0-2); WBC 20-50 HPF (0-5)
[2024-02-08] MEDS: Normal Saline - Diluent 50 ML VIAL IJ (12:20)
[2024-02-08] MEDS: Normal Saline Flush 10 ML SYR IVP (12:21)
[2024-02-08] MEDS: Omnipaque 350 MG/ML 100 ML BTL IJ (12:22)
--- NOTE | 2024-02-08 12:55 | DI.VRAD_ITS ---
PROCEDURE INFORMATION: Exam: CTA Chest With Contrast Exam date and time: 02/08/2024 12:25 PM Age: 83 years old Clinical indication: Other: Chest pain and shortness TECHNIQUE: Imaging protocol: Computed tomographic angiography of the chest with contrast. Exam focused on the arteries. 3D rendering (Not supervised by radiologist): MIP and/or 3D reconstructed images were created by the technologist. Radiation optimization: All CT scans at this facility use at least one of these dose optimization techniques: automated exposure control; mA and/or kV adjustment per patient size (includes targeted exams where dose is matched to clinical indication); or iterative reconstruction. Contrast material: OMNI 350; Contrast volume: 70 ml; Contrast route: INTRAVENOUS (IV); COMPARISON: No relevant prior studies are available for comparison. FINDINGS: Pulmonary arteries: No pulmonary embolus is appreciated. Aorta: No thoracic aortic aneurysm seen. Lungs: Subcentimeter right upper lobe nodule. Follow-up per institutional protocol if prior studies do not adequately document stability. Pleural spaces: No pleural effusion. Heart: No pericardial effusion. Lymph nodes: Nonspecific mediastinal lymph nodes. Diaphragm: Small hiatal hernia. Adrenal glands: Bilateral nodular adrenal thickening. Kidneys and ureters: Left renal cyst. Bones/joints: No acute pertinent abnormality seen. Soft tissues: No acute pertinent abnormality seen. IMPRESSION: 1. No acute findings to explain reported symptoms. 2. Nonacute findings as outlined above. Dictated and Authenticated by: Massiel Rangel MD. Ordering:SILAS Eagle MD
[2024-02-08 13:31] LABS: Troponin I < 50 ng/L (< or =60)
--- NOTE | 2024-02-08 14:18 | W.ED.GENAD ---
Discharge Plan Disposition Patient Disposition: Home Discharge Details Clinical Impression: Atypical chest pain, Acute UTI Primary Care Provider: Lydia Estrella ED Provider: Shagufta Palafox Home Meds and New Rx's Prescriptions: New nitrofurantoin monohyd/m-cryst [Macrobid] 100 mg capsule 100 mg PO BID Qty: 10 0RF Rx Instructions: must administer with a meal/food Continued aspirin [Aspir-81] 81 mg tablet,delayed release (DR/EC) 81 mg PO DAILY vitamin B complex [B Complex-Vitamin B12] Tablet 1 tab PO DAILY cholecalciferol (vitamin D3) 1,000 UNIT capsule 3,000 unit PO HS Qty: 180 levothyroxine 25 mcg tablet 25 mcg PO DAILY Patient Comments: TAKE ONE TABLET BY MOUTH EVERY DAY Discharge Instructions Instructions: Chest Pain (ED), Urinary Tract Infection in Women (ED) Additional Instructions: Recommend outpatient stress test Take the antibiotic as prescribed, yogurt daily while on antibiotic Follow-up with your primary care physician next week for reassessment Recommend outpatient Holter monitor Return earlier with new or worsening complaints Referrals: Lydia Estrella [Primary Care Provider] - [facility] General Date/Time Provider Initiated Documentation: 02/08/24 10:49. HPI Narrative: This 83-year-old female with history of GERD, hyperlipidemia, hypothyroidism, depression presents with report of 8 to 9 months of shortness of breath and arm pain. She states that over the past several days she is felt more lightheaded and the episodes of weakness have occurred more frequently. She has not had a stress test since 2017 although this was negative per patient. She does not smoke, drink, or use any illicit drugs. She was on a medication that her provider was concerned may have contributed to her symptoms however it has been 3 weeks since the removal of this medication and she is still symptomatic. Patient denies exertional component to her symptoms in fact she states when she is at rest her symptoms are often worse. Her last episode was this morning at approximately 8 AM and lasted until approximately 11. She describes them as a feeling of adrenaline and palpitations followed by aching in her arms. She states she feels very lightheaded with them. She denies any calf pain or swelling, recent flights, surgeries, long drives. She denies a history of coagulopathy. Related Data Home Medications Medication Instructions Recorded Confirmed cholecalciferol (vitamin D3) 25 3,000 unit PO HS #180 tabs 01/01/17 02/08/24 mcg (1,000 unit) capsule aspirin 81 mg tablet,delayed 81 mg PO DAILY 04/06/20 02/08/24 release (Aspir-) vitamin B complex (B 1 tab PO DAILY 12/18/21 02/08/24 Complex-Vitamin B12 tablet) levothyroxine 25 mcg tablet 25 mcg PO DAILY 02/08/24 02/08/24 nitrofurantoin 100 mg PO BID #10 caps 02/08/24 monohydrate/macrocrystals 100 mg capsule (Macrobid) Previous Rx's Medication Instructions Recorded nitrofurantoin 100 mg PO BID #10 caps 02/08/24 monohydrate/macrocrystals 100 mg capsule (Macrobid) Allergies Allergy/AdvReac Type Severity Reaction Status Date / Time pravastatin Allergy Intermediate Other (See Verified 02/08/24 10:56 Comment) General Stated Complaint: Chest Pain ROSIE: 3 Exam Narrative Exam Narrative: Alert and oriented 83-year-old female pupils equal round reactive to light and accommodation, moist mucous membranes, lungs clear to auscultation bilaterally, cardiac rate rhythm regular, no abdominal tenderness, alert and oriented x 4, no peripheral edema Course Vital Signs Vital signs: Vital Signs Respiratory Rate 19 02/08/24 10:55 Pulse Oximetry 96 02/08/24 10:55 Temperature 37.0 C 02/08/24 13:51 Temperature Source Oral 02/08/24 13:51 Pulse 67 02/08/24 13:49 Pulse 67 02/08/24 13:50 Respiratory Rate 14 02/08/24 13:50 Respiratory Effort Normal 02/08/24 13:50 Respiratory Depth Normal 02/08/24 13:50 Respiratory Pattern Normal 02/08/24 13:50 Blood Pressure 142/65 H 02/08/24 13:49 Blood Pressure Mean 88 02/08/24 13:49 Blood Pressure Position Supine 02/08/24 10:58 Pulse Oximetry 97 02/08/24 13:50 Oxygen Delivery Method Room Air 02/08/24 10:58 Oxygen Flow Rate 0 02/08/24 10:58 Pain Level 5 02/08/24 10:58 Comment just feels scary 02/08/24 10:58 Lab/Test Results Lab/Test Results: 02/08/24 11:44 Urine - Reflex from Ua Urine Culture - Pending Laboratory Tests Range/Units 02/08/24 02/08/24 11:11 11:44 WBC (4.4-10.8) 10^3/uL 5.66 RBC (3.93-5.22) 10^6/uL 4.94 Hgb (11.2-15.7) g/dL 14.6 Hct (36.0-46.0) % 44.4 MCV (80-95) fL 90 MCH (27.0-33.0) pg 29.6 MCHC (32.0-36.0) % 32.9 RDW (11.7-14.6) % 12.3 Plt Count (130-400) 10^3/uL 274 MPV (8.0-11.0) fL 8.8 Immature Gran % % 0.4 Neutrophils % % 60.6 Lymphocytes % % 29.7 Monocytes % % 7.2 Eosinophils % % 1.2 Basophils % % 0.9 Nucleated RBC % (0.0-0.3) % 0.0 Absolute Neutrophils (1.2-6.7) 10^3/uL 3.43 Absolute Lymphocytes (1.2-3.4) 10^3/uL 1.68 Absolute Monocytes (0.1-0.8) 10^3/uL 0.41 Absolute Eosinophils (0.0-0.7) 10^3/uL 0.07 Absolute Basophils (0.0-0.2) 10^3/uL 0.05 D-Dimer (<500) ng/mlFEU 773 H Sodium (136-145) mmol/L 143 Potassium (3.5-5.1) mmol/L 3.8 Chloride (98-107) mmol/L 105 Carbon Dioxide (21.0-32.0) mmol/L 25.8 Anion Gap (3-11) mmol/L 12.2 H BUN (7-18) mg/dL 8 Creatinine (0.55-1.02) mg/dL 0.7 Est GFR (CKD-EPI 2020) (mL/min/1.73m2) 86.83 Glucose (74-106) mg/dL 112 H Calcium (8.5-10.1) mg/dL 9.0 Magnesium (1.8-2.4) mg/dL 2.0 Total Bilirubin (0.2-1.0) mg/dL 0.3 AST (15-37) U/L 20 ALT (14-59) U/L 24 Alkaline Phosphatase (46-116) U/L 73 Troponin I (< or =60) ng/L < 50 Total Protein (6.4-8.2) g/dL 7.5 Albumin (3.4-5.0) g/dL 3.9 TSH (0.36-3.74) uIU/mL 2.22 Urine Color (Yellow) Yellow Urine Clarity (Clear) Clear Urine pH (5-8) 6.0 Ur Specific [place] (1.005-1.025) 1.010 Urine Protein (Neg-Trace) mg/dL Negative Urine Ketones (Negative) mg/dL Negative Urine Blood (Negative) Negative Urine Nitrite (Negative) Positive H Urine Bilirubin (Negative) Negative Urine Urobilinogen (Up to 0.2) mg/dL 0.2 Ur Leukocyte Esterase (Negative) Moderate H Urine RBC (0-2) HPF 0-2 Urine WBC (0-5) HPF 20-50 H Ur Epithelial Cells (Negative) HPF Few Urine Crystals (Negative) HPF Negative Urine Bacteria (Negative) HPF Many Urine Casts (Negative) LPF Negative Urine Mucus (Negative) Negative Ur Culture Indicated? Yes Urine Glucose (Negative) mg/dL Negative Medical Decision Making This 83-year-old female presents with report of fluttering and palpitations and lightheadedness. Patient states symptoms have been presenting over the course of the past 8 to 9 months but worsening. Patient with 2 troponins 3 hours apart that were negative. Negative TSH, CTA PE which was ordered secondary to elevated D-dimer level was within normal limits. Urinalysis positive for urinary tract infection, will treat with Macrobid for this. Vitals are stable at reassessment, no hypoxia, no respiratory distress, alert and oriented x 4, encouraged to follow-up with outpatient Holter and stress test, no indication for admission at this time although given the threshold to return with new or worsening complaints, observed for approximately 4 hours in the emergency department without any dysrhythmia noted. Quality:SDOH Health Related Social Needs: No Data to Display PFSH All Active Problems (Updated 02/08/24 @ 14:42 by LIZABETH Mcdermott) Acute UTI (Acute) Atypical chest pain (Acute) Diverticulosis (Acute) History of total left knee replacement (TKR) (Acute 03/01/20) Arthritis of left glenohumeral joint (Acute) Primary osteoarthritis of right knee (Chronic) Most recent injection: 10/28/2019 Primary osteoarthritis of right hip (Acute) Medical History (Updated 02/08/24 @ 14:42 by LIZABETH Mcdermott) Tubular adenoma of colon Primary osteoarthritis of left knee Most recent injection: 10/28/2019 Macular degeneration Lactose intolerance Neck muscle spasm Knee pain, bilateral Hyperlipidemia GERD (gastroesophageal reflux disease) Duodenal ulcer Multinodular goiter Vitamin D deficiency Cystocele with rectocele Grief at loss of child Myalgia Leg cramps Fatigue Elevated antinuclear antibody (SERGEY) level Chest discomfort Vitamin B12 deficiency Hip pain, right Anxiety Esophageal spasm Rx with amlodipine. [place] grade 3 cystocele Onset 05/2017. Extends beyond the introitus with Valsalva. 07/04/2017. short stemmed [place] 2 3/4 (70mm) pessary. 07/10/2017 #4 donut pessary Depression Onset after daughter's at age 50. Surgical History Left Breast Cyst Removal Ganglion Cyst, left wrist EGD - IV Sedation Colonoscopy - IV Sedation Extraction of cataract Family History Daughter Mental disorder Depression suicide age 50. Other Uterine cancer Social History Smoking/Tobacco Use Status: Former Tobacco Use Smoking risk assessment performed?: Yes Alcohol Intake: never Drug use: Never Substance use type: does not use Household members: spouse Housing: house Number of Children: 4 current occupation: retired Current gender identity: female What is your relationship status?: Panel score (0-1 are the most socially isolated patients): 1 What type of physical activity do you participate in: aerobic, regular exercise, weight lifting and additional Details: PT Duration: 30-45 minutes/day Frequency: 3-4 times per week Do you feel safe at home: Yes Do you feel safe in your relationship?: Yes
[2024-02-08 14:28] LABS: Troponin I < 50 ng/L (< or =60)
== END 2024-02-08 14:53 | disposition home or self-care (01) ==
PROVIDERS: Emergency Provider Physician Assistant; PCP Nurse Practitioner Family
DX: R07.89 Other chest pain (principal); N39.0 Urinary tract infection, site not specified; K21.9 Gastro-esophageal reflux disease without esophagitis; E78.5 Hyperlipidemia, unspecified; E03.9 Hypothyroidism, unspecified; F32.A Depression, unspecified; I44.4 Left anterior fascicular block; Z79.82 Long term (current) use of aspirin; Z87.891 Personal history of nicotine dependence
CPT/HCPCS: 71275; 80053; 93005; 96360; 99285; 81003; 81015; 83735; 84443; 84484; 85025; 85379; 87086; 93010; 99284; J3490

== ENCOUNTER → 2024-03-09 10:48 | Outpatient (BNVA) | payer MEDICARE, SELFPAY | PROVIDERS: PCP Nurse Practitioner Family; Referring Provider Nurse Practitioner Family; Visit Provider Surgery | DX: K21.9 Gastro-esophageal reflux disease without esophagitis (principal) | CPT/HCPCS: 99214 ==

== ENCOUNTER → 2024-03-18 00:10 | Outpatient (CLI) | payer MEDICARE, SELFPAY ==
--- NOTE | 2024-03-18 | ETT_ITS ---
APPROVED REPORT Exam: Exercise Treadmill Patient Location: Out-Patient Room/Bed: Stress Nurse: Kiya Espana RN Ordering Provider:JULIANE DHALIWAL, Contact Number: [phone] BMI: 27.11 Baseline Rhythm: Sinus Rhythm Indications: Chest pain, Medical History Medical History: HTN, dyspnea, chest pain, GERD, anxiety, HLD Cardiac Medications: Aspirin, duloxetine, omeprazole Allergies: Atorvastatin, pravastatin Cardiac Risk Factors: Family hx, HLD Previous Cardiac Procedures: None Pretest Chest Pain Characteristics: None Exercise History: Indeterminate Physical Disabilities: None Lung Sounds: Clear to auscultation Heart Sounds: Regular Stress Test Details Test: Exercise stress testing was performed using a Kayden protocol. Rest Stress HR Resting HR Supine: 68 bpm Max Heart Rate (APMHR): 139 bpm Resting HR Standin bpm Target HR (85% APMHR): 118 bpm Max HR Achieved: 128 bpm % of APMHR: 92 Recovery HR: 64 bpm HR response to stress: Normal HR response to stress BP Resting BP Supine: 128/60 mmHg Resting BP Standin/70 mmHg Max BP: 162/68 mmHg Recovery BP: 118/70 mmHg BP response to stress: Normal blood pressure response to stress. ECG Resting ECG: Sinus Rhythm Ectopy: None Stress ECG: Sinus Rhythm ST Change: No significant ST segment changes noted Recovery ECG: Sinus Rhythm Recovery ST Change: No significant ST segment changes noted Recovery Arrhythmia: Rare PAC Clinical Reason for Termination: Target HR Achieved Stress Symptoms: None Exercise duration: 04 min00 sec Highest Stage Reached: Stage 2: 2.5 mph at 12% grade. Exercise capacity: 5.82 METs Angina Score: None Rate Pressure Product: [id number] Stress ECG Conclusion 1. Resting EKG showed low voltage 2. Patient exercised on the Kayden protocol and completed a workload of 5.82 METS. Above average exer cise capacity for age 3. Normal heart rate and blood pressure response to exercise. The patient achieved 92% of predicted heart rate for age 4. There was no electrocardiographic evidence of myocardial ischemia 5. There were no significant dysrhythmias
== END ==
PROVIDERS: PCP Nurse Practitioner Family; Visit Provider Nurse Practitioner Family
DX: R07.89 Other chest pain (principal)
CPT/HCPCS: 93016; 93018; 93017

== ENCOUNTER 2024-04-07 09:57 | Emergency (ER) | payer MEDICARE, SELFPAY ==
[2024-04-07] VITALS (34 sets, daily range): BP systolic 143–172; BP diastolic 58–87; PULSE 56–79; RESP 12–20; TEMP 36.5; O2SAT 93–99
--- NOTE | 2024-04-07 10:00 | RT.EKG_ITS ---
APPROVED REPORT Exam: Resting ECG Reason for Exam: Numbness and Tingling, Weakness Patient Location: E HR:62 bpm ECG Measurements Heart Rate 62 AXIS DC 161 P 68 QRSd 96 QRS -38 QT 417 T 33 QTc 425 Conclusion Sinus rhythm...normal P axis, V-rate 60- 99 Left axis deviation...QRS axis (-30,-90) Physician: no stemi, unchanged from prior ekg from 02/08/24
--- NOTE | 2024-04-07 10:14 | ED.GENADUL_ITS ---
Discharge Plan Disposition Patient Disposition: Home Condition: Good Discharge Details Clinical Impression: Anxiety, Elevated vitamin B12 level, Stress at home Primary Care Provider: Lydia Estrella ED Provider: Shasta Simental Home Meds and New Rx's Prescriptions: Continued omeprazole 20 mg capsule,delayed release(DR/EC) 20 mg PO BID Qty: 60 0RF aspirin [Aspir-81] 81 mg tablet,delayed release (DR/EC) 81 mg PO DAILY vitamin B complex [B Complex-Vitamin B12] Tablet 1 tab PO DAILY cholecalciferol (vitamin D3) 1,000 UNIT capsule 3,000 unit PO HS Qty: 180 levothyroxine 25 mcg tablet 25 mcg PO DAILY Patient Comments: TAKE ONE TABLET BY MOUTH EVERY DAY Discharge Instructions Instructions: Stress, Tips to Help You [place] in Uncertain Times Additional Instructions: Your labs are reassuring here today. I believe that some of your symptoms are associated with increased stress and anxiety. Please try to reduce this is much as possible, consider therapy. Please go back to your exercises. I will also refer you to physical therapy for your known pelvic prolapse. You have an appointment with primary care next week, please arrive by 1130. If this does not work for you, please call the office to reschedule. If you develop any chest pain, shortness of breath, recurrent or worsening symptoms please seek care urgently once again. Referrals: Hellen Kilpatrick [NURSE PRACTITIONER] - 04/13/24 11:30 am [facility] General Date/Time Provider Initiated Documentation: 04/07/24 09:59 . Limitations to Documentation: no limitations . Information obtained by: patient, family, RN notes reviewed and old records reviewed . History of Present Illness 83 year old F presents to the emergency department with the chief complaint of BUE tingling, anxiety, described as moderate, Quality is described as other (denies any pain, had tingling), and is localized to the left, right and upper extremity. Patient reports no radiation. Patient started experiencing this hour(s) and it has been now resolved. Movement improves symptom(s), (improves with physical activity) Immoblization worsens symptoms (symptoms worse when being still in her kitchen, now resolved) . Patient notes no other symptoms.. Patient did receive the following treatments prior to arrival, none Related Data Home Medications Medication Instructions Recorded Confirmed cholecalciferol (vitamin D3) 25 3,000 unit PO HS #180 tabs 01/01/17 04/07/24 mcg (1,000 unit) capsule aspirin 81 mg tablet,delayed 81 mg PO DAILY 04/06/20 04/07/24 release (Aspir-) vitamin B complex (B 1 tab PO DAILY 12/18/21 04/07/24 Complex-Vitamin B12 tablet) levothyroxine 25 mcg tablet 25 mcg PO DAILY 02/08/24 04/07/24 omeprazole 20 mg capsule,delayed 20 mg PO BID #60 caps 03/09/24 04/07/24 release Previous Rx's Medication Instructions Recorded omeprazole 20 mg capsule,delayed 20 mg PO BID #60 caps 03/09/24 release Allergies Allergy/AdvReac Type Severity Reaction Status Date / Time pravastatin Allergy Intermediate Other (See Verified 04/07/24 10:03 Comment) General Stated Complaint: Nausea/Vomit/Diar ROSIE: 3 Review of Systems Constitutional Constitutional: Reports as per HPI, Denies chills, Reports fatigue, Denies fever(s), Denies frequent falls and Denies weakness Eyes Eyes: Reports as per HPI, Denies blurry vision and Denies change in vision ENT Ears, Nose, Mouth, and Throat: Denies vertigo and Denies neck pain Cardiovascular Cardiovascular: Reports as per HPI, Denies chest pain, Denies lightheadedness, Denies radiating jaw, neck or arm pain, Denies dyspnea and Denies dyspnea on exertion Respiratory Respiratory: Reports as per HPI, Denies chest congestion, Denies cough, Denies dyspnea and Denies dyspnea on exertion Gastrointestinal Gastrointestinal: Reports as per HPI, Denies abdominal pain, Denies change in bowel habits, Denies nausea and Denies vomiting Musculoskeletal Musculoskeletal: Reports as per HPI, Denies back pain, Denies myalgias, Denies muscle cramps and Denies neck pain Integumentary/Breasts Skin/Breast: Reports as per HPI and Denies rash Neurologic Neurologic: Reports as per HPI, Denies abnormal movements, Denies abnormal speech, Denies behavioral changes, Denies confusion, Denies vertigo, Denies frequent falls, Denies sensory deficit and Denies weakness Psychiatric Psychiatric: Denies behavioral changes and Denies confusion Endocrine Endocrine: Reports fatigue Exam Const General: cooperative, healthy appearing, uncomfortable, no acute distress, well developed and well groomed Nutritional Appearance: average body habitus and well nourished Orientation: alert, awake and oriented x3 [facility] Head: normal to inspection, no palpable skull fracture, normocephalic and atraumatic Ears: hearing grossly normal bilaterally Mouth: oral mucosae normal and moist mucous membranes Throat: posterior oropharynx normal Eyes General: appearance normal, both eyes and all related structures Alignment and Position: alignment normal Periorbital: periorbital findings normal Eyelids: eyelids normal Sclera: sclerae normal Cornea: corneas normal Pupils: PERRL EOM: EOM intact bilaterally Neck Neck: normal visual inspection, full ROM, no lymphadenopathy and no meningeal signs Resp Effort & Inspection: normal respiratory effort, able to speak in complete sentences and no respiratory distress Auscultation: clear to auscultation bilaterally, no rales, no rhonchi and no wheezes Cardio Rate: regular rate Rhythm: regular rhythm Heart Sounds: S1 normal and S2 normal Back/Spine/Pelvis Cervical Spine: normal cervical lordosis and cervical ROM normal Skin General skin exam: no rashes or lesions noted Neuro General: patient alert, patient awake and patient oriented x3 Cranial Nerves: CN's II-XI intact bilaterally Cognition: normal cognition Speech: speech normal Gait: normal gait Motor: muscle tone normal throughout, strength 5/5 throughout, no pronator drift, no movement abnormalities noted and no fasciculations Sensory Exam: no sensory deficits noted Coordination: [id number] test normal and [id number]-[id number] test normal Extrem General: normal to inspection, capillary refill normal, no pedal edema and no calf tenderness Psych Appearance: grossly normal and well kempt Mental Status: mental status grossly normal Speech and Movement: speech and movement normal Mood: congruent mood Affect: sad Attitude: cooperative Thought Process: normal Thought Content: normal Insight: insight good Judgment: judgment good Course Vital Signs Vital signs: Vital Signs Temperature 36.5 C 04/07/24 10:05 Pulse 77 04/07/24 10:05 Respiratory Rate 16 04/07/24 10:05 Blood Pressure 162/71 H 04/07/24 10:05 Pulse Oximetry 99 04/07/24 10:05 Temperature 36.5 C 04/07/24 10:05 Temperature Source Temporal Artery Scan 04/07/24 10:05 Pulse 77 04/07/24 10:05 Respiratory Rate 16 04/07/24 10:05 Respiratory Effort Normal, Non-Labored 04/07/24 10:09 Blood Pressure 162/71 H 04/07/24 10:05 Blood Pressure Position Sitting 04/07/24 10:05 Pulse Oximetry 99 04/07/24 10:05 Oxygen Delivery Method Room Air 04/07/24 10:05 Oxygen Flow Rate 0 04/07/24 10:05 Pain Level 0 04/07/24 10:05 Medical Decision Making Patient is a pleasant 83-year-old female, brought in by her , at the advisement of primary care for evaluation of feeling of anxiety, bilateral upper extremity tingling and left leg tingling. Patient reports that this morning, while doing a crossword puzzle, she began feeling anxious suddenly. She denies any palpitations, chest pain, shortness of breath. States that she went outside to hang the laundry and distract her self and symptoms did resolve with this activity. However, when she came back in symptoms began once again prompting her to call primary care who advised she come here for further evaluation. They are primarily concerned for thyroid or parathyroid dysfunction given patient's history. Patient does report that she has chronic numbness in the left thigh, states been present for years with unknown etiology. She denies any difficulties with balance. States that she did have a slight headache when she woke this morning but this is not atypical for her and it did resolve prior to the onset of any of the symptoms. States it was mild, did not wake her, no thunderclap symptoms. She denies any recent fevers, cough, chills, GI upset. No change in appetite, no weight loss. Past medical history significant for malignant tumor of the thyroid, disorder of the parathyroid, vitamin B deficiency, hyperlipidemia, anxiety, depression, GERD. On exam, patient appears nontoxic. She was hypertensive initially at 162/71. Does have history of elevated blood pressure without diagnosis of hypertension, she has been high like this year in the past. Neurologically intact. Normal cardiac and pulmonary exam. Abdomen is benign. When discussing patient's living situation, she became very tearful and anxious once again as she and her just decided to sell their home of 52 years and she is unclear where she is going to move to. She also expresses concern around 's wellbeing as he has had increased confusion and medical issues. Based on exam, primarily concerned for anxiety and increased social stressors. She does have hx of depression. As symptoms improved with exertion, unlikely to be ACS, no CP/SOB/palpitations. No evidence of infection. Considered exacerbation of underlying comorbidity, will assess B12, TSH, calcium. With rapid resolution, unlikely. Labs reviewed, signficant for elevated B12 at 1234. Otherwise, no electolyte abnormality, normal TSH, no anemia, no indiaction of UTI. B12 is supplemented, will have her cut back. This does not appear to be within toxic range, unlikely to cause symptoms. When speaking with patient, I am more concerned about her MH. She has had difficulty sleepign recently, likely associated with plan to sell house. This is likely contributing to symptoms. Seh denies SI or HI. We discussed support, she is going to think about therapy but does not want to persue this today. She is also stressed about known pelvic prolapse that causes urinary difficulties, particularly frequency. No evidence of UTI today. She is interested in PT, likes to exercise daily and feels like this will help her mental health as well. Will refer for pelvic floor PT. Repeat troponin WNL. Patient requesting d/c which I feel is appropriate, no recurance of her symptoms. Spoke with PCP, have f/u next week. PCP will address MH and therapy next week. Patient and I discussed return precautions, stress reduction options. All of her questions and concerns were addressed, she is in agreement with this plan. Quality:SDOH Health Related Social Needs: No Data to Display PFSH All Active Problems (Updated 04/07/24 @ 12:50 by LIZABETH Sutton) Stress at home (Acute) Elevated vitamin B12 level (Acute) Anxiety (Chronic) Diverticulosis (Acute) History of total left knee replacement (TKR) (Acute 03/01/20) Arthritis of left glenohumeral joint (Acute) Primary osteoarthritis of right knee (Chronic) Most recent injection: 10/28/2019 Primary osteoarthritis of right hip (Acute) Medical History Erythrocytosis Tubular adenoma of colon Primary osteoarthritis of left knee Most recent injection: 10/28/2019 Macular degeneration Lactose intolerance Neck muscle spasm Knee pain, bilateral Hyperlipidemia GERD (gastroesophageal reflux disease) Duodenal ulcer Multinodular goiter Vitamin D deficiency Cystocele with rectocele Grief at loss of child Myalgia Leg cramps Fatigue Elevated antinuclear antibody (SERGEY) level Chest discomfort Vitamin B12 deficiency Hip pain, right Anxiety Esophageal spasm Rx with amlodipine. [place]-Walker grade 3 cystocele Onset 05/2017. Extends beyond the introitus with Valsalva. 07/04/2017. short stemmed Gellhorn 2 / (70mm) pessary. 07/10/2017 #4 donut pessary Depression Onset after daughter's at age 50. Surgical History Left Breast Cyst Removal Ganglion Cyst, left wrist EGD - IV Sedation Colonoscopy - IV Sedation Extraction of cataract Family History Daughter Mental disorder Depression suicide age 50. Other Uterine cancer Social History Smoking/Tobacco Use Status: Former Tobacco Use Smoking risk assessment performed?: Yes Alcohol Intake: never Drug use: Never Substance use type: does not use Household members: spouse Housing: house Number of Children: 4 current occupation: retired Current gender identity: female What is your relationship status?: Panel score (0-1 are the most socially isolated patients): 1 What type of physical activity do you participate in: aerobic, regular exercise, weight lifting and additional Details: PT Duration: 30-45 minutes/day Frequency: 3-4 times per week Do you feel safe at home: Yes Do you feel safe in your relationship?: Yes
[2024-04-07 10:28] LABS: Abs Immature Grans 0.01 10^3/uL (0.0-0.06); Absolute Basophil Count 0.04 10^3/uL (0.0-0.2); Absolute Eosinophil Count 0.02 10^3/uL (0.0-0.7); Absolute Lymphocyte Count 1.58 10^3/uL (1.2-3.4); Absolute Monocyte Count 0.35 10^3/uL (0.1-0.8); Basophils % 0.9 %; Eosinophils % 0.5 %; HCT 45.5 % (36.0-46.0); HGB 15.1 g/dL (11.2-15.7); Immature Grans % 0.2 %; Lymphocytes % 36.7 %; MCH 29.6 pg (27.0-33.0); MCHC 33.2 % (32.0-36.0); MCV 89 fL (80-95); MPV 8.7 fL (8.0-11.0); Monocytes % 8.1 %; Neutrophils % 53.6 %; Platelet Count 294 10^3/uL (130-400); RDW 12.6 % (11.7-14.6); RDW-SD 41.4 fL
[2024-04-07 10:53] LABS: ALT 30 U/L (14-59); AST 22 U/L (15-37); Albumin 4.1 g/dL (3.4-5.0); Alkaline Phosphatase 70 U/L (46-116); Anion Gap 9.2 mmol/L (3-11); BUN 9 mg/dL (7-18); Bilirubin, Total 0.48 mg/dL (0.2-1.0); CO2 26.8 mmol/L (21.0-32.0); CREATININE 0.7 mg/dL (0.55-1.02); Calcium 9.8 mg/dL (8.5-10.1); Chloride 104 mmol/L (98-107); Estimated GFR 86.83 (mL/min/1.73m2); Glucose 102 mg/dL (74-106); Magnesium 2.2 mg/dL (1.8-2.4); Sodium 140 mmol/L (136-145); TSH (W/Ref FT4) 2.51 uIU/mL (0.36-3.74)
[2024-04-07 11:20] LABS: Bilirubin Negative (Negative); Blood Negative (Negative); Clarity Clear (Clear); Glucose Negative (Negative); Ketones Negative (Negative); Leukocyte Esterase Negative (Negative); Nitrite Negative (Negative); Specific Gravity 1.015 (1.005-1.025); Urobilinogen 0.2 mg/dL (Up to 0.2); pH 7.5 (5-8)
[2024-04-07 11:42] LABS: Vitamin B12 1234 pg/mL (193-986)
[2024-04-07 11:44] LABS: Troponin I < 50 ng/L (< or =60)
[2024-04-07 13:38] LABS: Troponin I < 50 ng/L (< or =60)
== END 2024-04-07 14:03 | disposition home or self-care (01) ==
PROVIDERS: Emergency Provider Physician Assistant; PCP Nurse Practitioner Family
DX: F32.A Depression, unspecified (principal); R53.1 Weakness; R20.0 Anesthesia of skin; F41.9 Anxiety disorder, unspecified; R41.0 Disorientation, unspecified; R79.89 Other specified abnormal findings of blood chemistry; N81.89 Other female genital prolapse; Z85.850 Personal history of malignant neoplasm of thyroid; E78.5 Hyperlipidemia, unspecified; K21.9 Gastro-esophageal reflux disease without esophagitis; R03.0 Elevated blood-pressure reading, without diagnosis of hypertension; Z73.3 Stress, not elsewhere classified; Z79.82 Long term (current) use of aspirin; Z79.899 Other long term (current) drug therapy
CPT/HCPCS: 80053; 93005; 99284; 81003; 82607; 83735; 84443; 84484; 85025; 93010

== ENCOUNTER → 2024-04-20 09:09 | Outpatient (BNVA) | payer MEDICARE, SELFPAY | PROVIDERS: PCP Nurse Practitioner Family; Referring Provider Nurse Practitioner Family; Visit Provider Surgery | DX: R10.13 Epigastric pain (principal) | CPT/HCPCS: 99213 ==

== ENCOUNTER 2024-04-26 08:19 | Day surgery (SDC) | payer MEDICARE, SELFPAY ==
--- NOTE | 2024-04-25 13:54 | PDOC.DSDIS_ITS ---
Date of service: 04/26/24 Time of Service: 10:14 Discharge Plan Disposition Patient Disposition: Home Condition: Good Discharge Details Reason For Visit: EGD and colonoscopy Attending Provider: Mauri Butler Primary Care Provider: Lydia Estrella Home Meds and New Rx's Prescriptions: Continued omeprazole 20 mg capsule,delayed release(DR/EC) 20 mg PO BID Qty: 60 0RF aspirin [Aspir-81] 81 mg tablet,delayed release (DR/EC) 81 mg PO DAILY vitamin B complex [B Complex-Vitamin B12] Tablet 1 tab PO DAILY cholecalciferol (vitamin D3) 1,000 UNIT capsule 3,000 unit PO HS Qty: 180 levothyroxine 25 mcg tablet 25 mcg PO DAILY Patient Comments: TAKE ONE TABLET BY MOUTH EVERY DAY One Daily Women 50 Plus(Vit K) 400 mcg-500 mg calcium-20 mcg tablet 1 tab PO DAILY duloxetine 20 mg capsule,delayed release(DR/EC) 20 mg PO DAILY Patient Comments: TAKE ONE CAPSULE BY MOUTH EVERY DAY Discharge Instructions Instructions: Aspiration Pneumonia (DC), Gastritis (DC) Additional Instructions: Sheldon, we were able to complete your EGD today without any difficulty. There are very mild signs of inflammation of your stomach consistent with gastritis (irritation of the stomach) the typical treatment for this is strong antacid medications such as the omeprazole that you are taking. You have some benign polyps in your stomach as well that do not require any treatment. I do not see any obvious ulcers, or anything in particular to worry about. Similarly, I am always on the look out for changes around the connection where your esophagus meets your stomach, as this is an area that is at risk for developing cancer. There are no signs of those changes on today's test. I did perform biopsies of your stomach as well as your esophagus to see if that sheds any other light on the discomfort that you are experiencing. Unfortunately, I was not able to complete your colonoscopy. You have quite a bit of diverticulosis. Diverticula are weak spots in the muscular part of the colon wall. Although I can see all of your rectum, and there are no signs of any problems there, I cannot get the camera much farther than about 25 cm past your anus. I feel like passing and any further would be dangerous. At this point, you basically have 2 simple options. A barium enema would be the next best test to evaluate the colon for any changes that may be associated with colon cancer. This would require another round of bowel prep, and a series of x-rays in the radiology department. Alternatively, it may be very reasonable to stop screening for colon cancer at this point. The most modern recommendation is to consider screening colonoscopies up to age 85, and not beyond that. Takes some time to think about it, and you are certainly welcome to discuss with your primary care physician. I am more than happy to order the barium enema if you decide to go that route. I will be in touch as soon as I have the results of the biopsies of your stomach. If you have any questions in the meantime, please do not hesitate to l et me know. 1. If tolerated, consume a soft, low fiber diet for 1-2 days. [address] not drive, drink alcohol, operate machinery, make critical decisions, or do activities that require coordination or balance for 24 hours. 3. Because air was put into your colon during the procedure, expelling air from your rectum (passing gas or farting) is normal. 4. You may not have a bowel movement for 1-3 days because of the colonoscopy prep. This is normal. 5. You may experience a sore throat for 24 to 48 hours. You may use throat lozenges or gargle with warm salt water to relieve the discomfort. 6. Because air was put into your stomach during the procedure, you may experience some belching. 7. Go directly to the emergency room if you notice any of the following: Develop chills (warm to touch), or if you have a thermometer and your temperature is above 101 Difficulty breathing or difficultly swallowing Persistent vomiting Severe abdominal pain, other than gas cramps Severe chest pain Black, tarry stools Any bleeding ? exceeding one tablespoon 8. Call your physician if the site where your intravenous was started becomes red, swollen, painful, and warm to touch. 9. Your physician has reviewed your pre-procedure medications. Please continue to take those medications as previously ordered. You will be given specific information/education regarding any changes to your medications before leaving. Activity:: Activity as Tolerated Diet:: As Tolerated Discharge Orders Discharge Orders: Discharge Order (Routine); Ordered 04/25/24 Ordered By: Mauri Butler DS: Diagnosis Discharge Diagnosis (1) Encounter for screening colonoscopy: Status: Acute Asessment and Plan: Follow-up on EGD biopsy results
--- NOTE | 2024-04-25 13:56 | ENDO_ITS ---
Date of service: 04/26/24 Time of Service: 10:19 Endoscopy Report DATE OF PROCEDURE: 04/26/24 PRE-OP DIAGNOSIS: dyspepsia and screening colonoscopy POST-OP DIAGNOSIS: other (Mild gastritis, incomplete colonoscopy with diverticulosis) PROCEDURE: EGD with biopsies and incomplete colonoscopy SURGEON: Mauri Butler ANESTHESIA TYPE: General:No Airway ESTIMATED BLOOD LOSS: 5 PATHOLOGY: other (Random biopsies of the gastric antrum, gastric body and esophagus) COMPLICATIONS: None DISPOSITION: same day INDICATIONS: Ginger is an 83 year old woman who has longstanding dyspepsia poorly controlled with proton pump inhibitors and she is also due for a screening colonoscopy PREP: Miralax/Dulcolax PROCEDURE START TIME: 09:40 PROCEDURE END TIME: 10:03 FINDINGS: Mild gastritis; sigmoid diverticulosis PROCEDURE DESCRIPTION: After the initiation of anesthesia, and with the assistance of a bite block, I advanced a standard gastroscope through the mouth past the hypopharynx and into the esophagus.? Under the direct vision of the scope, I advanced down the e sophagus towards the stomach.? The upper, mid, and lower esophagus all appeared normal. The GE junction and Z-line were encountered around 35 cm from the incisors. The Z-line was regular. There were no signs of Espinoza's esophagus. I advanced down into the stomach and insufflated into the rugae were obliterated. I performed retroflexion. I did not see any signs of hiatal hernia. There are multiple benign-appearing fundic land polyps. Narrowband imaging was used to assist with analysis. I advanced the camera down along the greater curvature towards the incisura angularis. There were very mild signs of inflammation along the greater curvature and anterior wall of the stomach. These seem consistent with very mild gastritis. I did not see any signs of discrete ulceration. I advanced down across the pylorus into the duodenum. This was all normal and healthy appearing. I then brought the camera back into the stomach and perform some random cold forceps biopsies of the gastric antrum and body to rule out Helicobacter pylori or other sources of gastritis. The stomach was then emptied, and the camera was brought out along the length of the esophagus again. No other abnormalities were appreciated. I did perform random biopsies of the esophagus with cold forceps. Next we moved Ginger into the left lateral decubitus position. Care was taken to pad and support her appropriately. I began by performing an external anorectal exam.? Perineum and skin were normal, as was the anal verge.? There was no evidence of external hemorrhoids.? Next, I performed a digital rectal e xam.? I did not appreciate any abnormal findings.? Next, I advanced a colonoscope into the rectal vault.? I performed retroflexion.? This appeared normal.? Using irrigation, I then advanced the colonoscope beyond the rectal folds and into the sigmoid colon. There was extensive diverticulosis of the distal sigmoid. I was able to advance the camera up to about 25 cm, but because of some angulation here, I could not safely extend beyond it. Multiple attempts were made using a combination of irrigation, insufflation, and suction. Despite several efforts to reposition the scope, was not able to advance the camera safely. Therefore I elected to terminate the procedure at that point.
[2024-04-26 08:35] VITALS: BP 124/78; PULSE 65; RESP 16; TEMP 36.2; O2SAT 98
--- NOTE | 2024-04-26 08:48 | ANES.PREOP_ITS ---
General Info Date of Service Date Performed: 04/26/24 Height: 5 ft 6 in Weight: 68.4 kg Body Mass Index (BMI): 24.3 Surgical Procedure: Operation Date: 04/26/24 09:50 Proposed Procedure Side Surgeon p Colonoscopy/Gastroscopy Mauri Butler MD Meds Allergies and Home Medications Allergies Allergy/AdvReac Type Severity Reaction Status Date / Time pravastatin Allergy Intermediate Other (See Verified 04/26/24 08:48 Comment) Home Medication ?Medication ?Instructions ?Recorded cholecalciferol (vitamin D3) 25 3,000 unit PO HS #180 tabs 01/01/17 mcg (1,000 unit) capsule aspirin 81 mg tablet,delayed 81 mg PO DAILY 04/06/20 release (Aspir-) vitamin B complex (B 1 tab PO DAILY 12/18/21 Complex-Vitamin B12 tablet) levothyroxine 25 mcg tablet 25 mcg PO DAILY 02/08/24 omeprazole 20 mg capsule,delayed 20 mg PO BID #60 caps 03/09/24 release duloxetine 20 mg capsule,delayed 20 mg PO DAILY 04/23/24 release cyqkndlc-ysr-zaamh ac 400 1 tab PO DAILY 04/23/24 mcg-calcium carb 500 mg-vit K1 20 mcg tablet (One Daily Women 50 Plus(Vit K)) Current Visit Medications: Current Medications Generic Name Dose Route Start Last Admin Trade Name Freq PRN Reason Stop Dose Admin Ringer's Solution 1,000 mls @ 80 mls/hr 04/26/24 06:00 IV 04/26/24 23:59 INFUSION [facility] IV Miscellaneous Supplies 1 each 04/26/24 06:00 Iv Access IV 04/26/24 23:59 DIRECTED BERNICE Ondansetron HCl 4 mg 04/25/24 13:58 Ondansetron 4 Mg/2 Ml Vial IVP 05/25/24 13:57 Q4H PRN PRN Nausea / Vomiting Sodium Chloride 0 ml 04/26/24 06:00 Normal Saline Flush 10 Ml Syr IV 04/26/24 23:59 PRN PRN Sodium Chloride 0 ml 04/26/24 06:00 Normal Saline 10 Ml Vial IJ 04/26/24 23:59 DIRECTED PRN Sterile Water 0 ml 04/26/24 06:00 Water,Injection,Sterile 10 Ml Vial IJ 04/26/24 23:59 DIRECTED PRN PFSH Active Problems Active Problems: Problem Status Onset Code Encounter for screening colonoscopy Acute Z12.11 Dyspepsia Acute R10.13 Stress at home Acute F43.9 Elevated vitamin B12 level Acute R74.8 Anxiety Chronic F41.9 Diverticulosis Acute K57.90 History of total left knee replacement (TKR) Acute 03/01/20 Z96.652 Arthritis of left glenohumeral joint Acute M19.012 Primary osteoarthritis of right knee Chronic M17.11 Primary osteoarthritis of right hip Acute M16.11 Medical History Medical History Erythrocytosis Tubular adenoma of colon Primary osteoarthritis of left knee Most recent injection: 10/28/2019 Macular degeneration Lactose intolerance Neck muscle spasm Knee pain, bilateral Hyperlipidemia GERD (gastroesophageal reflux disease) Duodenal ulcer Multinodular goiter Vitamin D deficiency Cystocele with rectocele Grief at loss of child Myalgia Leg cramps Fatigue Elevated antinuclear antibody (SERGEY) level Chest discomfort Vitamin B12 deficiency Hip pain, right Anxiety Esophageal spasm Rx with amlodipine. [place] grade 3 cystocele Onset 05/2017. Extends beyond the introitus with Valsalva. 07/04/2017. short stemmed [place] 2 3/4 (70mm) pessary. 07/10/2017 #4 donut pessary Depression Onset after daughter's at age 50. Surgical History Surgical History Left Breast Cyst Removal Ganglion Cyst, left wrist EGD - IV Sedation Colonoscopy - IV Sedation Extraction of cataract Tobacco Smoking/Tobacco Use Status: Former Tobacco Use Alcohol Alcohol Intake: never Substance Use Substance use: Never Substance use type: does not use Vital Signs and Lab Results Vital Signs Most Recent Vital Signs in EMR: Most Recent Vital Signs Temp Pulse Resp BP Pulse Ox 36.2 C L 65 16 124/78 98 04/26/24 08:35 04/26/24 08:35 04/26/24 08:35 04/26/24 08:35 04/26/24 08:35 Lab Results Blood Type / Crossmatch: No Data to Display Complete Blood Count: White Blood Count 4.30 10^3/uL (4.4-10.8) L 04/07/24 10:23 Red Blood Count 5.10 10^6/uL (3.93-5.22) 04/07/24 10:23 Hemoglobin 15.1 g/dL (11.2-15.7) 04/07/24 10:23 Hematocrit 45.5 % (36.0-46.0) 04/07/24 10:23 Platelet Count 294 10^3/uL (130-400) 04/07/24 10:23 Complete Metabolic Panel: Sodium 140 mmol/L (136-145) 04/07/24 10:23 Potassium 4.0 mmol/L (3.5-5.1) 04/07/24 10:23 Chloride 104 mmol/L (98-107) 04/07/24 10:23 Carbon Dioxide 26.8 mmol/L (21.0-32.0) 04/07/24 10:23 BUN 9 mg/dL (7-18) 04/07/24 10:23 Creatinine 0.7 mg/dL (0.55-1.02) 04/07/24 10:23 Est GFR (CKD-EPI 2020) 86.83 (mL/min/1.73m2) 04/07/24 10:23 Magnesium 2.2 mg/dL (1.8-2.4) 04/07/24 10:23 Calcium 9.8 mg/dL (8.5-10.1) 04/07/24 10:23 Albumin 4.1 g/dL (3.4-5.0) 04/07/24 10:23 Glucose 102 mg/dL (74-106) 04/07/24 10:23 Liver Function Panel: Alanine Aminotransferase (ALT/SGPT) 30 U/L (14-59) 04/07/24 10: 23 Aspartate Amino Transf (AST/SGOT) 22 U/L (15-37) 04/07/24 10:23 Coagulation Panel: No Data to Display Cardiac Panel: Troponin I < 50 ng/L (< or =60) 04/07/24 Arterial Blood Gas: No Data to Display Venous Blood Gas: No Data to Display Pancreas Panel: No Data to Display Thyroid Panel: Thyroid Stimulating Hormone (TSH) 2.51 uIU/mL (0.36-3.74) 04/07 10:23 Infectious Disease: No Data to Display Blood Cultures: No Data to Display Toxicology Panel: No Data to Display Imaging and Studies Imaging and Studies Study information below may be from another EMR and interpreted by another provider. Please see original notes in EMR for more complete details. EKG Summary: EKG PATIENT NAME: Ginger Davila UNIT #: [id number] ORDERING PROVIDER: Shasta Simental PRIMARY CARE PROVIDER: JULIANE DHALIWAL APRN DATE/TIME OF SERVICE: 04/07/24 1014 : 1940 PERFORMING LOCATION: ER APPROVED REPORT Exam: Resting ECG Reason for Exam: Numbness and Tingling, Weakness Patient Location: E HR:62 bpm ECG Measurements Heart Rate 62 AXIS CO 161 P 68 QRSd 96 QRS -38 QT 417 T33 QTc 425 Conclusion Sinus rhythm...normal P axis, V-rate 60- 99 Left axis deviation...QRS axis (-30,-90) Physician: no stemi, unchanged from prior ekg from 02/08/24 <Electronically signed by LEÓN DE LEÓN DO in [place]> E-Sign Date: 04/07/24 E-Sign Time: 1052 ADDENDUM APPROVED REPORT Exam: Resting ECG Reason for Exam: Numbness and Tingling, Weakness Patient Location: E HR:62 bpm ECG Measurements Heart Rate 62 AXIS CO 161 P 68 QRSd 96 QRS -38 QT 417 T33 QTc 425 Conclusion Sinus rhythm...normal P axis, V-rate 60- 99 Left axis deviation...QRS axis (-30,-90) Physician: no stemi, unchanged from prior ekg from 02/08/24 I have reviewed and I agree with the emergency room physician's ECG interpretation. Electronically signed by: <Electronically signed by Andrei Chopra M.D. in [place]> 04/12/24 0905 Cosigned by: Stress Test Summary: STRESS TEST PATIENT NAME: Ginger Davila UNIT #: [id number] ORDERING PROVIDER: Juliane Dhaliwal PRIMARY CARE PROVIDER: JULIANE DHALIWAL APRN DATE/TIME OF SERVICE: 03/18/24 ADMITTING PROVIDER: FLORENCIA OLIVARES,ANDREI VALDES : 1940 APPROVED REPORT Exam: Exercise Treadmill Patient Location: Out-Patient Room/Bed: Stress Nurse: Kiya Espana RN Ordering Provider:JULIANE DHALIWAL, Contact Number: [phone] BMI: 27.11 Baseline Rhythm: Sinus Rhythm Indications: Chest pain, Medical History Medical History: HTN, dyspnea, chest pain, GERD, anxiety, HLD Cardiac Medications: Aspirin, duloxetine, omeprazole Allergies: Atorvastatin, pravastatin Cardiac Risk Factors: Family hx, HLD Previous Cardiac Procedures: None Pretest Chest Pain Characteristics: None Exercise History: Indeterminate Physical Disabilities: None Lung Sounds: Clear to auscultation Heart Sounds: Regular Stress Test Details Test: Exercise stress testing was performed using a Kayden protocol. Rest Stress HR Resting HR Supine: 68 bpmMax Heart Rate (APMHR): 139 bpm Resting HR Standin bpmTarget HR (85% APMHR): 118 bpm Max HR Achieved: 128 bpm % of APMHR: 92 Recovery HR: 64 bpm HR response to stress: Normal HR response to stress BP Resting BP Supine: 128/60 mmHg Resting BP Standin/70 mmHg Max BP: 162/68 mmHg Recovery BP: 118/70 mmHg BP response to stress: Normal blood pressure response to stress. ECG Resting ECG: Sinus Rhythm Ectopy: None Stress ECG: Sinus Rhythm ST Change: No significant ST segment changes noted Recovery ECG: Sinus Rhythm Recovery ST Change: No significant ST segment changes noted Recovery Arrhythmia: Rare PAC Clinical Reason for Termination: Target HR Achieved Stress Symptoms: None Exercise duration: 04 min00 sec Highest Stage Reached: Stage 2: 2.5 mph at 12% grade. Exercise capacity: 5.82 METs Angina Score: None Rate Pressure Product: [id number] Stress ECG Conclusion 1. Resting EKG showed low voltage 2. Patient exercised on the Kayden protocol and completed a workload of 5.82 METS. Above average exercise capacity for age 3. Normal heart rate and blood pressure response to exercise. The patient achieved 92% of predicted heart rate for age 4. There was no electrocardiographic evidence of myocardial ischemia 5. There were no significant dysrhythmias Dictated by: ANDREI CHOPRA MD Dictated:: 03/18/24841 <Electronically signed by Andrei Chopra M.D. in [place]> 03/18/24855 Transcribed Date: 03/18/24 Transcribed Time: 841 By: LIANET This is privileged, confidential information, intended only for the provider named. Any use or distribution by any person other than this provider is strictly prohibited. If you receive this report in error, please notify us immediately at [phone] and return the original report to us at the address above. Thank you. Anesthesia Assessment and Plan Anesthesia History Personal History: No History of Anesthesia Complications Family History: No Family History of Anesthesia Complications Exercise Tolerance Exercise Tolerance: Metabolic Equivalents>4 Pertinent Negatives Pertinent Negatives: No Symptoms of GERD, No Major Pulmonary Symptoms or Complaints and No History of CVA/TIA Cardiac & Pulmonary Exam Cardiac Exam: Normal S1/S2 Heart Sounds Pulmonary Exam: Clear Bilateral Breath Sounds Implantable Cardiac Device Does patient have a Pacemaker or an ICD?: No Airway Exam Known Difficult Airway: No Mallampati Class: 2 Mouth Opening: Normal (> 3cm) Thyromental Distance: Greater than 3 cm Neck Range of Motion: Full ROM Neck Circumference: Normal Teeth Condition: Removable Dentures/Plates Upper ASA Classification ASA Score: ASA 2 Emergency Case?: No NPO Status NPO Status: NPO Clears >2 hours, Solids >8 hours Anesthesia Plan Resuscitation Status: Full Code Anesthesia Technique: General Anesthesia Airway Planned: Natural Airway Monitors Used: Standard Monitors
[2024-04-26 08:49] VITALS: BMI 24.3
[2024-04-26] MEDS: Lactated Ringers 1,000 ML 80 ML IV (09:10)
--- NOTE | 2024-04-26 09:42 | STOM_PTH ---
PATIENT: Ginger Davila LOC: [facility] U#:[id number] AGE/SX: 83/F ROOM: RE04/26/[address]: Mauri Butler MD : 1940 BED: DIS: 04/26/2024 SPEC #: [id number] RECD: 04/26/24 12:49 STATUS: JUAN ALBERTORinku RE #: [id number] MARICARMEN: 04/26/24 09:[address]: Mauri Butler DEPT: Surgical Specimen RECD BY: Shagufta Aguilera ENTERED: 04/26/24 12:50 SP TYPE: STOMACH OTHR DR: Lydia Estrella Tissues: 1 - STOMACH BIOPSY 2 - STOMACH BIOPSY 3 - ESOPHAGUS BIOPSY Procedures: GROSS AND MICRO LEVEL 4 Comments: [id number]
[2024-04-26 10:10] VITALS: BP 117/71; PULSE 73; RESP 16; TEMP 36.3; O2SAT 96
--- NOTE | 2024-04-26 10:33 | ANES.POST_ITS ---
Postoperative Evaluation Date, Time and Location Date Performed: 04/26/24 Time Performed: 10:33 Patient Location: Day Surgery Unit Vital Signs Most Recent Imported Vital Signs: Most Recent Vital Signs Temp Pulse Resp BP Pulse Ox 36.3 C L 73 16 117/71 96 04/26/24 10:10 04/26/24 10:10 04/26/24 10:10 04/26/24 10:10 04/26/24 10:10 Pain Score Most Recent Pain Score: Most Recent Pain Score Pain Level 0 04/26/24 10:10 Assessment Mental Status: Awake (Alert & Oriented to Patient Baseline) Airway and Respiratory Function: Patent airway with normal (patient baseline) respiratory exam Cardiovascular Function: Hemodynamically Stable Hydration Status: Adequately Hydrated Nausea & Vomiting: No Nausea or Vomiting Pain: Pt. Denies Any Pain Peripheral Nerve Block: Patient did not receive a nerve block Postoperative Comments:: Discussed her vomiting near the end of the procedure. aspiration d/c ins tructions printed. She is encouraged to reach out with any questions or go to the ED with any symptoms of concern.
[2024-04-26 10:50] VITALS: BP 126/79; PULSE 57; RESP 16; TEMP 36.3; O2SAT 97
== END 2024-04-26 11:04 | disposition home or self-care (01) ==
LOC: SUR 08:19
PROVIDERS: PCP Nurse Practitioner Family; Visit Provider Surgery
PROC: (CPT 43239; principal; 2024-04-26 09:45)
DX: Z12.11 Encounter for screening for malignant neoplasm of colon (principal); R13.10 Dysphagia, unspecified; K57.30 Diverticulosis of large intestine without perforation or abscess without bleeding
CPT/HCPCS: 43239; G0105; 88305; J2001; J2704

== ENCOUNTER 2024-05-20 13:57 | Outpatient (REF) | payer MEDICARE, SELFPAY ==
[2024-05-20 22:03] LABS: Vitamin D 25 Total 60.6 ng/mL (30-100)
[2024-05-21 21:59] LABS: Parathyroid Hormone,Intact 66 pg/mL (19-88)
== END 2024-05-20 13:58 | disposition home or self-care (01) ==
LOC: NCHCN 13:57
PROVIDERS: PCP Nurse Practitioner Family; Visit Provider Nurse Practitioner Family
DX: E55.9 Vitamin D deficiency, unspecified (principal)
CPT/HCPCS: 82306; 83970

== ENCOUNTER 2024-09-01 15:48 | Outpatient (REF) | payer MEDICARE, SELFPAY ==
[2024-09-01 19:13] LABS: HCT 42.5 % (36.0-46.0); HGB 13.8 g/dL (11.2-15.7); MCH 29.9 pg (27.0-33.0); MCHC 32.5 % (32.0-36.0); MCV 92 fL (80-95); Platelet Count 316 10^3/uL (130-400); RBC 4.62 10^6/uL (3.93-5.22); RDW 12.6 % (11.7-14.6); RDW-SD 42.6 fL; WBC 6.48 10^3/uL (4.4-10.8)
[2024-09-01 19:28] LABS: Iron 79 ug/dL (50-170); Total Iron Binding Capacity 279 ug/dL (250-450); Transferrin Sat 28 % (15-50)
[2024-09-01 19:56] LABS: ALT 24 U/L (14-59); AST 20 U/L (15-37); Albumin 3.7 g/dL (3.4-5.0); Alkaline Phosphatase 68 U/L (46-116); Anion Gap 7.2 mmol/L (3-11); BUN 12 mg/dL (7-18); Bilirubin, Total 0.23 mg/dL (0.2-1.0); CO2 27.8 mmol/L (21.0-32.0); CREATININE 0.7 mg/dL (0.55-1.02); Calcium 9.3 mg/dL (8.5-10.1); Chloride 104 mmol/L (98-107); Estimated GFR 86.83 (mL/min/1.73m2); Ferritin 143 ng/mL (8-252); Glucose 104 mg/dL (74-106); Sodium 139 mmol/L (136-145); TSH (W/Ref FT4) 2.68 uIU/mL (0.36-3.74); Total Protein 6.9 g/dL (6.4-8.2); Vitamin B12 > 2000 pg/mL (193-986)
== END 2024-09-01 15:49 | disposition home or self-care (01) ==
LOC: NCHCN 15:48
PROVIDERS: PCP Nurse Practitioner Family; Visit Provider Nurse Practitioner Family
DX: E03.9 Hypothyroidism, unspecified (principal)
CPT/HCPCS: 80053; 85027; 82607; 82728; 83540; 83550; 84443

== ENCOUNTER 2024-11-09 15:17 | Outpatient (REF) | payer MEDICARE, SELFPAY ==
[2024-11-09 21:10] LABS: HCT 43.7 % (36.0-46.0); HGB 14.3 g/dL (11.2-15.7); MCHC 32.7 % (32.0-36.0); MCV 92 fL (80-95); MPV 9.2 fL (8.0-11.0); Platelet Count 341 10^3/uL (130-400); RBC 4.77 10^6/uL (3.93-5.22); RDW 12.7 % (11.7-14.6); RDW-SD 42.3 fL
[2024-11-09 21:40] LABS: Vitamin B12 1248 pg/mL (193-986)
== END 2024-11-09 15:18 | disposition home or self-care (01) ==
LOC: NCHCN 15:17
PROVIDERS: PCP Nurse Practitioner Family; Visit Provider Nurse Practitioner Family
DX: E53.8 Deficiency of other specified B group vitamins (principal)
CPT/HCPCS: 85027; 82607

== ENCOUNTER 2024-11-12 00:49 | Outpatient (CLI) | payer MEDICARE, SELFPAY ==
--- NOTE | 2024-11-12 14:17 | DI.RAD_ITS ---
Exam(s) XR SACRUM COCCYX EXAM: XR SACRUM COCCYX CLINICAL HISTORY: Pain in coccyx, M53.3-sacrococcygeal disorders, not classified elsewhere. TECHNIQUE: 2D digital imaging was performed. COMPARISON: CR XR SACRUM COCCYX from 09/17/2021 FINDINGS: BONES: No acute fracture is present. No bony destructive lesion is seen. Prominent left-sided disc osteophytes at L4-5 and L5-S1. JOINTS: No dislocation present. The SI joints are not widened. There are mild degenerative changes at the SI joints and pubic symphysis. Hip joint spaces are maintained. There is acetabular spurrin g. SOFT TISSUE: Normal. IMPRESSION: No acute abnormality. DATA REPOSITORY: RADIATION DOSE DELIVERED:
== END 2024-11-12 01:09 ==
LOC: DI 00:49
PROVIDERS: PCP Nurse Practitioner Family; Visit Provider Nurse Practitioner Family
DX: M53.3 Sacrococcygeal disorders, not elsewhere classified (principal)
CPT/HCPCS: 72220

== ENCOUNTER 2025-02-22 01:16 | Outpatient (CLI) | payer MEDICARE, SELFPAY ==
--- NOTE | 2025-02-22 | DI.US_ITS ---
Exam(s) US THYROID EXAM: US THYROID CLINICAL HISTORY: NONTOXIC MULTINODULAR GOITER E04.2. TECHNIQUE: Ultrasound thyroid performed using standard protocol. COMPARISON: US US THYROID from 09/06/2021 FINDINGS: ISTHMUS: 3 mm RIGHT LOBE: Size: 4.5 x 1.9 x 2.1 cm Echogenicity: Heterogeneous. Vascularity: Normal. Nodules: Multiple small nodules. Largest nodule is located toward the lower pole and measures 8 x 9 x 9 millimeters. It is solid, hypoechoic wider than tall with smooth margins. There are punctate ec hogenic foci, TR 5. No follow-up recommended due to small size. LEFT LOBE: Status post left thyroidectomy. OTHER FINDINGS: No adenopathy. IMPRESSION: Multiple small thyroid nodules. Largest nodule is 9 millimeters in the lower pole, TR 5. DATA REPOSITORY:
== END 2025-02-22 01:36 ==
LOC: DI 01:16
PROVIDERS: PCP Nurse Practitioner Family; Visit Provider Nurse Practitioner Family
DX: E04.2 Nontoxic multinodular goiter (principal)
CPT/HCPCS: 76536

== ENCOUNTER 2025-06-14 12:47 | Emergency (ER) | payer MEDICARE, SELFPAY ==
[2025-06-14] VITALS (15 sets, daily range): BP systolic 153–169; BP diastolic 79–88; PULSE 66–97; RESP 12–22; TEMP 36.7; O2SAT 94–99
--- NOTE | 2025-06-14 12:45 | RT.EKG_ITS ---
APPROVED REPORT Exam: Resting ECG Reason for Exam: dizziness Patient Location: E HR:90 bpm ECG Measurements Heart Rate 90 AXIS IA 153 P 147 QRSd 92 QRS -26 QT 375 T [id number] QTc 459 Conclusion Sinus or ectopic atrial rhythm...P axis (-45,135) Probable left atrial enlargement...P >50mS, <-0.10mV V1 No STEMI
[2025-06-14 13:16] LABS: Glucose Negative (Negative)
[2025-06-14 13:22] LABS: RBC 0-2 HPF (0-2)
[2025-06-14 13:23] LABS: C & S Indicated? No
--- NOTE | 2025-06-14 13:33 | ED.GENADUL_ITS ---
Discharge Plan Disposition Patient Disposition: Home Condition: Good Discharge Details Clinical Impression: Dizziness Primary Care Provider: Lydia Estrella ED Provider: Shasta Simental Home Meds and New Rx's Prescriptions: Continued omeprazole 20 mg capsule,delayed release(DR/EC) 20 mg PO BID Qty: 60 0RF aspirin [Aspir-81] 81 mg tablet,delayed release (DR/EC) 81 mg PO DAILY vitamin B complex [B Complex-Vitamin B12] Tablet 1 tab PO DAILY cholecalciferol (vitamin D3) 1,000 UNIT capsule 3,000 unit PO HS Qty: 180 levothyroxine 25 mcg tablet 25 mcg PO DAILY Patient Comments: TAKE ONE TABLET BY MOUTH EVERY DAY One Daily Women 50 Plus(Vit K) 400 mcg-500 mg calcium-20 mcg tablet 1 tab PO DAILY duloxetine 20 mg capsule,delayed release(DR/EC) 20 mg PO DAILY Patient Comments: TAKE ONE CAPSULE BY MOUTH EVERY DAY Discharge Instructions Instructions: Dizziness, Adult ED Additional Instructions: As we discussed, your labs and imaging are very reassuring here today. I do not see evidence that you are having a stroke at this point but I believe that some of your dizziness could be associated with stopping your medications. I encourage hydration and close follow-up with your primary care. Please continue your medications as previously prescribed. If your dizziness does return, you could try something [id number] such as Antivert which helps with motion sickness. However, if your symptoms worsen at all please return to the emergency department for reevaluation. Please follow-up with primary care in 1 week for reevaluation Referrals: Lydia Estrella [Primary Care Provider, Medicine] Discharge Data Discharge Date/Time-TO BE ENTERED AT DEPARTURE: 06/14/25 16:53 [facility] General Date/Time Provider Initiated Documentation: 06/14/25 12:58 . Limitations to Documentation: no limitations . Information obtained by: patient, family (jai) and RN notes reviewed . History of Present Illness 84 year old F presents to the emergency department with the chief complaint of dizziness, described as moderate and similar to prior episodes, Quality is described as other (no pain or discomfort), and is localized to the head. Patient started experiencing this week(s) and it has been intermittent. Immobilization improves symptom(s), Movement worsens symptoms . Patient notes no other symptoms.. Patient did receive the following treatments prior to arrival, none Related Data Home Medications ?Medication ?Instructions ?Recorded ?Confirmed cholecalciferol (vitamin D3) 25 3,000 unit PO HS #180 tabs 01/01/17 06/14/25 mcg (1,000 unit) capsule aspirin 81 mg tablet,delayed 81 mg PO DAILY 04/06/20 0 06/14/25 release (Aspir-) vitamin B complex (B 1 tab PO DAILY 12/18/2106/30 Complex-Vitamin B12 tablet) levothyroxine 25 mcg tablet 25 mcg PO DAILY 02/08/24 0 06/14/25 omeprazole 20 mg capsule,delayed 20 mg PO BID #60 caps 03/09/24 06/14/25 release duloxetine 20 mg capsule,delayed 20 mg PO DAILY 06/14/25 release [id number] ac 400 1 tab PO DAILY 04/23/2406/30 mcg-calcium carb 500 mg-vit K1 20 mcg tablet (One Daily Women 50 Plus(Vit K)) Previous Rx's ?Medication ?Instructions ?Recorded omeprazole 20 mg capsule,delayed 20 mg PO BID #60 caps 03/09/24 release Allergies Allergy/AdvReac Type Severity Reaction Status Date / Time pravastatin Allergy Intermediate Other (See Verified 06/14/25 12:53 Comment) General Stated Complaint: CVA/TIA ROSIE: 3 Review of Systems Constitutional Constitutional: Reports as per HPI, Denies fever(s), Denies frequent falls and Denies weakness Eyes Eyes: Reports as per HPI and Denies change in vision Cardiovascular Cardiovascular: Reports as per HPI, Denies chest pain, Denies lightheadedness, Denies dyspnea and Denies dyspnea on exertion Respiratory Respiratory: Reports as per HPI, Denies chest congestion, Denies cough, Denies dyspnea and Denies dyspnea on exertion Gastrointestinal Gastrointestinal: Reports as per HPI, Denies abdominal pain, Denies change in bowel habits, Denies nausea and Denies vomiting Musculoskeletal Musculoskeletal: Reports as per HPI, Denies back pain, Denies myalgias and Denies numbness Integumentary/Breasts Skin/Breast: Reports as per HPI and Denies rash Neurologic Neurologic: Reports as per HPI, Denies abnormal movements, Denies abnormal speech, Denies behavioral changes, Denies frequent falls, Denies localized weakness, Denies numbness, Denies sensory deficit and Denies weakness Psychiatric Psychiatric: Denies behavioral changes Exam Const General: cooperative, healthy appearing, no acute distress, well developed and well groomed Nutritional Appearance: average body habitus and well nourished Orientation: alert, awake and oriented x3 [facility] Head: normal to inspection, no palpable skull fracture, normocephalic and atraumatic Ears: hearing grossly normal bilaterally and external ears normal General nose exam: external nose normal Mouth: oral mucosae normal and moist mucous membranes Throat: posterior oropharynx normal Eyes General: appearance normal, both eyes and all related structures Alignment and Position: alignment normal Periorbital: periorbital findings normal Eyelids: eyelids normal Sclera: sclerae normal Cornea: corneas normal Pupils: PERRL EOM: EOM intact bilaterally Neck Neck: normal visual inspection, full ROM, no lymphadenopathy and no meningeal signs Resp Effort & Inspection: normal respiratory effort, able to speak in complete sentences and no respiratory distress Auscultation: clear to auscultation bilaterally, no rales, no rhonchi and no wheezes Cardio Rate: regular rate Rhythm: regular rhythm Heart Sounds: S1 normal and S2 normal Back/Spine/Pelvis Cervical Spine: normal cervical lordosis and cervical ROM normal Skin General skin exam: no rashes or lesions noted Neuro General: patient alert, patient awake and patient oriented x3 Cranial Nerves: CN's II-XI intact bilaterally Cognition: normal cognition Speech: speech normal Gait: normal gait Motor: muscle tone normal throughout, strength 5/5 throughout, no pronator drift, no movement abnormalities noted and no fasciculations Sensory Exam: no sensory deficits noted Coordination: [id number]-nj-[id number] test normal Extrem General: normal to inspection, capillary refill normal, no pedal edema and no calf tenderness Course Vital Signs Vital signs: Vital Signs Temperature 36.7 C 06/14/25 12:55 Pulse 97 H 06/14/25 12:55 Respiratory Rate 20 06/14/25 12:55 Blood Pressure 169/79 H 06/14/25 12:55 Pulse Oximetry 97 06/14/25 12:55 Temperature 36.7 C 06/14/25 12:55 Temperature Source Oral 06/14/25 12:55 Pulse 97 H 06/14/25 12:55 Respiratory Rate 16 06/14/25 13:10 Respiratory Effort Normal, Non-Labored 06/14/25 13:10 Blood Pressure 169/79 H 06/14/25 12:55 Blood Pressure Position Sitting 06/14/25 12:55 Pulse Oximetry 97 06/14/25 12:55 Oxygen Delivery Method Room Air 06/14/25 12:55 Oxygen Flow Rate 0 06/14/25 12:55 Pain Level 0 06/14/25 12:55 Lab/Test Results Lab/Test Results: Laboratory Tests Range/Units 06/14/25 13:00 Urine Color (Yellow) Yellow Urine Clarity (Clear) Clear Urine pH (5-8) 7.5 Ur Specific Arena (1.005-1.025) 1.015 Urine Protein (Neg-Trace) mg/dL Negative Urine Ketones (Negative) mg/dL Negative Urine Blood (Negative) Negative Urine Nitrite (Negative) Negative Urine Bilirubin (Negative) Negative Urine Urobilinogen (Up to 0.2) mg/dL 0.2 Ur Leukocyte Esterase (Negative) Small H Urine RBC (0-2) HPF 0-2 Urine WBC (0-5) HPF 5-10 Ur Epithelial Cells (Negative) HPF Many Urine Crystals (Negative) HPF Negative Urine Bacteria (Negative) HPF Few Urine Casts (Negative) LPF Negative Urine Mucus (Negative) Trace Ur Culture Indicated? No Urine Glucose (Negative) mg/dL Negative Medical Decision Making Patient is a pleasant 84-year-old female, accompanied by her daughter, with past medical history of macular degeneration, hyperlipidemia, GERD, anxiety, esophageal spasms, depression, presenting for chief complaint of dizziness. She reports she has been feeling dizzy which she struggles to define, for the past week. Says like this is intermittent and primarily brought on with movements but it sounds to be more exertional or long-term movements rather than just turning the head in bed. She describes having the dizziness began when she was folding laundry for example. She denies any headache. Denies any visual change, no chest pain or shortness of breath. Unclear about balance. She did ask for her daughter's help walking into her primary care office today but states that this was because of the dizzy sensation now that she actually felt that she was in a fall. She does not describe any presyncope or syncopal ep isodes. She not had symptoms like this historically. Of note, just prior to the onset of the symptoms, patient abruptly stopped her duloxetine just a few days prior to the onset of her symptoms and duloxetine is known to cause dizziness. No personal familial history of CVA. On exam, patient appears nontoxic. She is resting comfortably no acute distress. Neurologic exam is very reassuring. She is ambulating without any assistance, no difficulty with balance. She has normal Romberg. Cranial nerves and other systemic testing for neurologic dysfunction is within normal limits. No focal deficits. She does look to her daughter a few times regarding historical questions but is reported to be baseline. She is not actively dizzy or vertiginous so unable to complete any hints specialty testing at this point. Primarily concern at this time is for CVA although with her reassuring exam and that this is brought on primarily with movement, is not a super high index suspicion for CVA. However, I do feel that a CTA for further evaluation for LVO would be appropriate. Will obtain imaging as well as baseline labs. Consider metabolic cause, septic such as benign paroxysmal peripheral vertigo, labyrinthitis but more likely, patient has side effect from stopping her medication so abruptly given the timeline of events. I discussed these concerns with the patient and her family and they are in agreement. Has not had any palpitations, chest pain or other cardiac symptoms, low suspicion for any cardiac source of dizziness. ECG was obtained and reviewed by emergency attending, no acute ischemic changes are appreciated, patient is in a normal sinus rhythm. Labs reviewed, no acute abnormalities. CTA was reviewed by radiologist with no evidence to suggest a CVA. Reevaluated the patient and she and her daughter report that she is been asymptomatic since her arrival here and even earlier into the day. It could be that if this was associated with the medication is now been 1 week since she stopped the meds, it may now be getting to the point where half-life is completed and she is having resolution of her symptoms. She is requesting discharge and I feel this is appropriate at this point. I do not see any emergent pathology but I did encourage her to follow-up with her primary care. We also discussed the importance of take medications as prescribed. Return precautions were discussed. All her questions and concerns were addressed and she is in agreement this plan. Patient does not live alone, is able to return should she develop any new or worsening symptoms. PFSH All Active Problems (Updated 06/14/25 @ 16:41 by LIZABETH Sutton) Dizziness (Acute) Encounter for screening colonoscopy (Acute) Dyspepsia (Acute) Diverticulosis (Acute) History of total left knee replacement (TKR) (Acute 03/01/20) Arthritis of left glenohumeral joint (Acute) Primary osteoarthritis of right knee (Chronic) Most recent injection: 10/28/2019 Primary osteoarthritis of right hip (Acute) Medical History (Updated 06/14/25 @ 16:41 by LIZABETH Sutton) Erythrocytosis Tubular adenoma of colon Primary osteoarthritis of left knee Most recent injection: 10/28/2019 Macular degeneration Lactose intolerance Neck muscle spasm Knee pain, bilateral Hyperlipidemia GERD (gastroesophageal reflux disease) Duodenal ulcer Multinodular goiter Vitamin D deficiency Cystocele with rectocele Grief at loss of child Myalgia Leg cramps Fatigue Elevated antinuclear antibody (SERGEY) level Chest discomfort Vitamin B12 deficiency Hip pain, right Anxiety Esophageal spasm Rx with amlodipine. [place]-Walker grade 3 cystocele Onset 05/2017. Extends beyond the introitus with Valsalva. 07/04/2017. short stemmed Gellhorn 2 3/4 (70mm) pessary. 07/10/2017 #4 donut pessary Depression Onset after daughter's at age 50. Surgical History (Updated 04/28/24 @ 14:22 by Addie Marcial) History of esophagogastroduodenoscopy (~04/2024) Left Breast Cyst Removal Ganglion Cyst, left wrist EGD - IV Sedation Colonoscopy - IV Sedation Extraction of cataract Family History Daughter Mental disorder Depression suicide age 50. Other Uterine cancer Social History Smoking/Tobacco Use Status: Former Tobacco Use Quit Date: 10/06/72 Smoking risk assessment performed?: Yes Alcohol Intake: never Drug use: Never Substance use type: does not use Household members: spouse Housing: house Number of Children: 4 current occupation: retired Current gender identity: female What is your relationship status?: Panel score (0-1 are the most socially isolated patients): 1 What type of physical activity do you participate in: aerobic, regular exercise, weight lifting and additional Details: PT Duration: 30-45 minutes/day Frequency: 3-4 times per week Do you feel safe at home: Yes Do you feel safe in your relationship?: Yes
[2025-06-14 14:05] LABS: Abs Immature Grans 0.02 10^3/uL (0.0-0.06); HCT 40.6 % (36.0-46.0); HGB 13.6 g/dL (11.2-15.7); Immature Grans % 0.3 %; MCH 30.0 pg (27.0-33.0); MCHC 33.5 % (32.0-36.0); MCV 89 fL (80-95); MPV 8.6 fL (8.0-11.0); Platelet Count 309 10^3/uL (130-400); RBC 4.54 10^6/uL (3.93-5.22); RDW 13.1 % (11.7-14.6); RDW-SD 42.7 fL; WBC 7.09 10^3/uL (4.4-10.8)
[2025-06-14 14:26] LABS: ALT 24 U/L (14-59); AST 21 U/L (15-37); Albumin 3.6 g/dL (3.4-5.0); Alkaline Phosphatase 66 U/L (46-116); Anion Gap 9.5 mmol/L (3-11); BUN 10 mg/dL (7-18); Bilirubin, Total 0.3 mg/dL (0.2-1.0); CO2 26.5 mmol/L (21.0-32.0); Calcium 9.1 mg/dL (8.5-10.1); Chloride 105 mmol/L (98-107); Estimated GFR 73.52 (mL/min/1.73m2); Glucose 102 mg/dL (74-106); Magnesium 2.0 mg/dL (1.8-2.4); Potassium 3.7 mmol/L (3.5-5.1); Sodium 141 mmol/L (136-145); Total Protein 7.2 g/dL (6.4-8.2); Troponin I 5 ng/L (<or=51)
[2025-06-14 14:34] LABS: TSH 2.18 uIU/mL (0.36-3.74)
[2025-06-14] MEDS: Normal Saline - Diluent 50 ML VIAL IJ (15:09)
[2025-06-14] MEDS: Normal Saline Flush 10 ML SYR IVP (15:09)
[2025-06-14] MEDS: Omnipaque 350 MG/ML 100 ML BTL IJ (15:10)
--- NOTE | 2025-06-14 15:18 | DI.CT_ITS ---
Exam(s) CT BRAIN NECK CTA EXAM: CT BRAIN NECK CTA CLINICAL HISTORY: dizziness. TECHNIQUE: Imaging Protocol: Axial CT angiography was performed with multi- slice acquisition and multi-planar and MIP reconstructions. CONTRAST MATERIAL: Intravenous: Omnipaque 350 Contrast volume:70 ml COMPARISON: CT CT BRAIN NECK CTA from 11/17/2021 FINDINGS: CT Head W/O and W contrast: Ventricles and Extra axial spaces: Normal in size and morphology for the patient's age. Hemorrhage: None. Cerebral parenchyma: No evidence of acute infarct or mass. Midline shift: None. Brainstem/Cerebellum: No acute findings.. Calvarium: Hyperostosis frontalis interna. Visualized Paranasal sinuses/Mastoids: Clear. Soft Tissues: Unremarkable. Enhancement: Normal. Venous sinuses are patent. CTA Brain W: Internal Carotid Arteries: Right: No aneurysm, occlusion or significant stenosis. Left: No aneurysm, occlusion or significant stenosis. Middle Cerebral Arteries: Right: No aneurysm, occlusion or significant stenosis. Left: No aneurysm, occlusion or significant stenosis. Anterior Cerebral Arteries: Right: No aneurysm, occlusion or significant stenosis. Left: No aneurysm, occlusion or significant stenosis. Posterior cerebral Arteries: Right: No aneurysm, occlusion or significant stenosis. Left: No aneurysm, occlusion or significant stenosis. Vertebral Arteries: Right: No aneurysm, occlusion or significant stenosis. Left: No aneurysm, occlusion or significant stenosis. Basilar Artery: No aneurysm, occlusion or significant stenosis. CTA Neck W: Visualized aorta: Unremarkable. Visualized pulmonary arteries: Unremarkable. Subclavian arteries: Unremarkable. Common Carotid: Right: No dissection, occlusion or significant stenosis. Left: Mild focal calcific plaque. No dissection, occlusion or significant stenosis. External Carotid: Right: No dissection, occlusion or significant stenosis. Left: No dissection, occlusion or significant stenosis. Internal Carotid: Right: No dissection, occlusion or significant stenosis. Left: No dissection, occlusion or significant stenosis. Vertebral Artery: Right: No dissection, occlusion or significant stenosis. Left: No dissection, occlusion or significant stenosis. Lung Apices: No acute findings. Bones: No acute abnormality. Advanced degenerative changes. Soft Tissues: Normal. IMPRESSION: 1. CTA brain: Normal CTA examination of the [place] of [place]. 2. Head CT: No acute abnormality. 3. CTA neck: No evidence of occlusion, significant stenosis or dissection. RADIATION DOSE DELIVERED: Total DLP DATA REPOSITORY: All CT scans at this facility are submitted to the National Radiology Data Registry (NRDR) Dose Index Registry (DIR) with the [employer] (A[employer]). RADIATION OPTIMIZATION: All CT scans at this facility use at least one of these dose optimization techniques: automated exposure control; mA and/or kV adjustment per patient size (includes targeted exams where dose is matched to clinical indication); or iterative reconstruction.
[2025-06-14 15:24] LABS: Troponin I 5 ng/L (<or=51)
== END 2025-06-14 16:53 | disposition home or self-care (01) ==
PROVIDERS: Emergency Provider Physician Assistant; PCP Nurse Practitioner Family
DX: R42 Dizziness and giddiness (principal)
CPT/HCPCS: 99283; 36415; 70496; 70498; 80053; 93005; 99285; 81003; 81015; 83735; 84443; 84484; 85025; 93010; J3490